=== PATIENT | male | born 1975 | race Caucasian/White ===

== ENCOUNTER 2020-05-08 13:49 | Emergency (ER) | payer MEDICAID, SELFPAY | END 2020-05-08 19:39 | disposition left against medical advice (07) | PROVIDERS: Emergency Provider Emergency Medicine; PCP Internal Medicine | DX: R10.9 Unspecified abdominal pain (principal) | CPT/HCPCS: 99281 ==

== ENCOUNTER 2020-05-09 08:50 | Emergency (ER) | payer MEDICAID, SELFPAY ==
[2020-05-09 09:28] VITALS: BP 128/80; PULSE 80; RESP 16; TEMP 36.6; O2SAT 96; BMI 35.5
[2020-05-09 11:54] VITALS: BP 136/85; PULSE 78; RESP 16; TEMP 37.2; O2SAT 136
--- NOTE | 2020-05-09 12:03 | CT_ITS ---
EXAMINATION: CT ABDOMEN AND PELVIS WITH CONTRAST CLINICAL INFORMATION: Right lower quadrant abdominal pain COMPARISON: None TECHNIQUE: Multidetector volumetric images were obtained from the superior aspect of the liver through the pubic symphysis following administration 85 mL of Omnipaque 350 intravenous contrast. Sagittal and coronal reformatted images were obtained on the technologist's workstation. Oral contrast: No This CT examination was performed using dose optimization techniques as appropriate, variously including the following: *Automated exposure control *Adjustment of mA and/or kV according to patient size (this includes techniques or standardized protocols for targeted exams where dose is matched to indication/reason for exam; i.e. extremities or head) *Use of iterative reconstruction technique DLP: 945 mGy-cm FINDINGS: LUNG BASES: The visualized lung bases are unremarkable. LIVER, GALLBLADDER, AND BILIARY TREE: The liver is normal in size, shape, and attenuation. No focal hepatic lesion or biliary ductal dilatation is present. The gallbladder is unremarkable with no evidence of radiopaque gallstones, gallbladder wall thickening, or obvious pericholecystic inflammatory changes. PANCREAS: Unremarkable. SPLEEN: Unremarkable. ADRENAL GLANDS: Unremarkable. KIDNEYS AND URETERS: The kidneys are normal in size, shape, and attenuation. No hydronephrosis, hydroureter, or calculi seen. No perinephric stranding. Exophytic right upper pole 6.2 cm. Adjacent exophytic left midpole anterior lesions measuring 2.8 x 1.7 cm and 1.1 cm. These measure simple fluid attenuation. BLADDER: Unremarkable. GASTROINTESTINAL TRACT: The stomach is unremarkable. Normal caliber small bowel. There is no obstruction. Normal appendix. There is scattered colonic diverticulosis. No diverticulitis. No colonic wall thickening or inflammatory change. No free air or free fluid. ABDOMINAL WALL: No significant hernia is appreciated. Right inguinal hernia repair. LYMPH NODES: Normal. VASCULAR: Normal caliber aorta. Retroaortic left renal vein. PELVIC VISCERA: The prostate is prominent measuring 5 cm transverse. The seminal vesicles are unremarkable. OSSEOUS STRUCTURES: No acute or suspicious osseous abnormality. Mild degenerative changes of the spine. Mild degenerative changes of the hips. IMPRESSION: No acute findings in the abdomen or pelvis. Normal appendix. No hydronephrosis or nephrolithiasis. Bilateral renal cysts. Diverticulosis without diverticulitis.
--- NOTE | 2020-05-09 12:54 | ED_ITS ---
HPI - Abdominal Pain General Chief Complaint: Abdominal Pain Stated Complaint: ABD PAIN Time Seen by Provider: 05/09/20 11:57 Source: patient Mode of arrival: ambulatory History of Present Illness HPI narrative: 45-year-old male with no significant past medical history presented to ED complaining of diarrhea and epigastric abdominal pain x3 days s/p eating a burger. Admits to 1 episode of nausea / emesis. Was sent to ED by Urgent Care, admits symptomatic improvement since star. Denies fever, chills, constipation, recent travel, sick contacts, dysuria /hematuria, flank pain MD elicited complaint: abdominal pain Related Data Allergies Allergy/AdvReac Type Severity Reaction Status Date / Time No Known Allergies Allergy Verified 05/09/20 08:52 [No Known Allergies*] Review of Systems Review of Systems Constitutional: No Weight loss, No Fever, No Chills Cardiovascular: No Chest Pain, No SOB Respiratory: No Cough, No Sputum Gastrointestinal: + Nausea, + Vomiting (resolved), + Diarrhea, No Constipation, + Abdominal pain Genitourinary: No Dysuria, No Urinary Frequency, No Hematuria, No Flank Pain, No Urinary Flow Changes Skin: No Skin Lesions, No rash Yes all other systems are reviewed and are negative Physical Exam Vital Signs: Vital Signs: Vital Signs Temp Pulse Resp BP Pulse Ox 05/09/20 14:12 76 122/86 98 05/09/20 11:54 98.9 F 78 16 136/85 136 H 05/09/20 09:28 97.8 F 80 16 128/80 96 Body Mass Index 35.5 Const: General: cooperative and healthy appearing Orientation/consciousne ss: patient oriented x3 Limitations: no limitations HENMT: Head: Yes normal to inspection Ears: hearing grossly normal bilaterally General nose exam: Normal external nose present Face and sinus: Yes normal facial exam Eyes: General: appearance normal, both eyes and all related structures EOM: EOMs intact bilaterally Neck: Neck: Yes normal visual inspection Resp: Effort & Inspection: normal respiratory effort Cardio: Rate: regular rate GI: Inspection: Yes normal to inspection Palpation (GI): Soft to palpation, Tenderness to palpation present (GI) in the RLQ, no guarding and not rigid : General: Yes no CVA tenderness Back/Spine/Pelvis: Back: no CVA tenderness Skin: Rashes: no rashes Wounds: no wounds Neuro: General: patient oriented x3 Gait exam (Neuro): Normal gait present Extrem: General: Yes normal to inspection Course Course Course Narrative: - AST/ALT elevated at baseline, labs otherwise unremarkable, UA with blood/ not infected CT AP without acute findings Lab and imaging results discussed with patient including worrisome signs and symptoms and strict return precautions. Patient verbalized understanding feel safe for discharge home to follow-up with PCP MDM - Abdominal Pain MDM Narrative Medical decision making narrative: 45-year-old male with no significant past medical history presented to ED complaining of diarrhea and epigastric abdominal pain x3 days s/p eating a burger. on exam VSS, NAD/ nontoxic-appearing, abdomen soft with RLQ tenderness. concern for appendicitis vs gastroenteritis vs colitis. Low concern for renal stone/pyelo/diverticulitis /pancreatitis Plan: Labs, UA, CT AP, symptomatic treatment /reassess Differential Diagnosis Differential diagnosis: Likely abdominal pain, acute appendicitis, bowel perforation, constipation, gastroenteritis, gastritis and pancreatitis Lab Data Result diagrams: 05/09/20 12:59 05/09/20 12:59 Labs: Lab Results 05/09/20 05/09/20 05/09/20 Range/Units 12:59 12:59 12:59 WBC 7.3 (4.8-10.8) X10*3/uL RBC 5.24 (4.60-5.80) X10*6/uL Hgb 16.8 (14.0-18.0) g/dl Hct 50.4 (42-52) % MCV 96.2 (80-98) fL MCH 32.1 (27.0-33.0) pg MCHC 33.3 (31.0-36.0) g/dl RDW 12.8 (11.0-16.0) % Plt Count 265 (160-400) X10*3/uL MPV 10.7 (9.4-12.4) fL Immature Gran % (Auto) 0.4 (0.0-0.4) % Neut % (Auto) 57.7 (45-73) % Lymph % (Auto) 32.5 (20-40) % [place] % (Auto) 6.8 (2-11) % Eos % (Auto) 1.9 (0-4) % Baso % (Auto) 0.7 (0-2) % Lymph # (Auto) 2.4 (1.2-4.9) X10*3/uL [place] # (Auto) 0.5 (0.1-1.2) X10*3/uL Eos # (Auto) 0.1 (0.0-0.4) X10*3/uL Baso # (Auto) 0.1 (0.0-0.2) X10*3/uL Abs Immat Gran (auto) 0.03 (0.00-0.03) X10*3/uL Absolute Neuts (auto) 4.2 (2.0-8.3) X10*3/uL Absolute Nucleated RBC 0.000 (0.0-0.012) X10*3/uL Nucleated RBC % (auto) 0.0 (0.0-0.2) /100WBC Hold Blue Top SEE NOTE Sodium (135-145) mmol/L Potassium (3.3-5.1) mmol/l Chloride (96-108) mmol/L Carbon Dioxide (22-29) mmol/L Anion Gap (12-20) BUN (9-16) mg/dL Creatinine (0.5-1.4) mg/dL Estim Creat Clear Calc Estimated GFR Random Glucose (60-115) mg/dL Calcium (8.4-10.2) mg/dL Magnesium (1.6-2.6) mg/dL Total Bilirubin (0.0-1.0) mg/dL Direct Bilirubin (0.0-0.5) mg/dL AST (5-37) U/L ALT (0-40) U/L Alkaline Phosphatase (39-117) U/L Total Protein (6.5-8.0) g/dL Albumin (3.5-5.0) g/dL Lipase (8-78) U/L Urine Color YELLOW Urine Appearance CLEAR Urine pH 5.5 (5.0-8.0) Ur Specific [place] >= 1.030 H (1.005-1.025) Urine Protein NEG (NEG-TRACE) MG/DL Urine Glucose (UA) NEG (NEG) MG/DL Urine Ketones NEG (NEG) MG/DL Urine Blood 3+ H (NEG) Urine Nitrite NEG (NEG) Ur Leukocyte Esterase NEG (NEG) Urine RBC 5-9 H (0) /HPF Urine WBC 0 (0-4) /HPF Ur Squamous Epith Cells TRACE /LPF Urine Bacteria NONE /LPF Urine Mucus TRACE /LPF 05/09/20 Range/Units 12:59 WBC (4.8-10.8) X10*3/uL RBC (4.60-5.80) X10*6/uL Hgb (14.0-18.0) g/dl Hct (42-52) % MCV (80-98) fL MCH (27.0-33.0) pg MCHC (31.0-36.0) g/dl RDW (11.0-16.0) % Plt Count (160-400) X10*3/uL MPV (9.4-12.4) fL Immature Gran % (Auto) (0.0-0.4) % Neut % (Auto) (45-73) % Lymph % (Auto) (20-40) % [place] % (Auto) (2-11) % Eos % (Auto) (0-4) % Baso % (Auto) (0-2) % Lymph # (Auto) (1.2-4.9) X10*3/uL [place] # (Auto) (0.1-1.2) X10*3/uL Eos # (Auto) (0.0-0.4) X10*3/uL Baso # (Auto) (0.0-0.2) X10*3/uL Abs Immat Gran (auto) (0.00-0.03) X10*3/uL Absolute Neuts (auto) (2.0-8.3) X10*3/uL Absolute Nucleated RBC (0.0-0.012) X10*3/uL Nucleated RBC % (auto) (0.0-0.2) /100WBC Hold Blue Top Sodium 140 (135-145) mmol/L Potassium 4.1 (3.3-5.1) mmol/l Chloride 103 (96-108) mmol/L Carbon Dioxide 30 H (22-29) mmol/L Anion Gap 11 L (12-20) BUN 9 (9-16) mg/dL Creatinine 0.91 (0.5-1.4) mg/dL Estim Creat Clear Calc 131.1 Estimated GFR > 60 Random Glucose 96 (60-115) mg/dL Calcium 9.5 (8.4-10.2) mg/dL Magnesium 2.3 (1.6-2.6) mg/dL Total Bilirubin 0.8 (0.0-1.0) mg/dL Direct Bilirubin 0.3 (0.0-0.5) mg/dL AST 41 H (5-37) U/L ALT 76 H (0-40) U/L Alkaline Phosphatase 60 (39-117) U/L Total Protein 7.2 (6.5-8.0) g/dL Albumin 4.5 (3.5-5.0) g/dL Lipase 11 (8-78) U/L Urine Color Urine Appearance Urine pH (5.0-8.0) Ur Specific [place] (1.005-1.025) Urine Protein (NEG-TRACE) MG/DL Urine Glucose (UA) (NEG) MG/DL Urine Ketones (NEG) MG/DL Urine Blood (NEG) Urine Nitrite (NEG) Ur Leukocyte Esterase (NEG) Urine RBC (0) /HPF Urine WBC (0-4) /HPF Ur Squamous Epith Cells /LPF Urine Bacteria /LPF Urine Mucus /LPF Discharge Plan Discharge Clinical Impression: Abdominal pain Patient Disposition: Home, Self-Care Instructions: Abdominal Pain (ED), Gastroenteritis (ED) Additional Instructions: your blood work and CT scan were unremarkable today in the ED It is important for you to follow-up with her primary care doctor Stay hydrated at home If symptoms persist or worsen, your unable to eat or drink, develops fever, persistent nausea/vomiting, or diarrhea return to the ED Referrals: Hal Nova MD [Primary Care Provider] - 2 days Stand Alone Forms: Work/School Release [facility] Past Medical History Attestation statement: The following information was validated with the patient. Medical History (Updated 05/09/20 @ 16:01 by MELE Simpson) No known health problems Social History Social History Alcohol intake: never Smoking Status: Never smoker Use of substances other than those prescribed or required for medical reasons: No Advance Directives: No Advance Directives Information Provided: No
[2020-05-09] MEDS: 0.9 % Sodium Chloride 1,000 ML 999 ML IVCONT (13:02)
[2020-05-09] MEDS: Ketorolac Tromethamine 15 MG/ML VIAL IV (13:02)
[2020-05-09] MEDS: ondansetron HCL 4 MG/2 ML VIAL IVPUSH (13:02)
[2020-05-09 13:05] LABS: MANUAL DIFF FLAG NO
[2020-05-09 13:06] LABS: Appearance Urine CLEAR; Color Urine YELLOW; Glucose Urine UA NEG (NEG); Leukocyte Esterase Urine NEG (NEG); Nitrite Urine NEG (NEG); PH 5.5 (5.0-8.0); Specific Gravity - Urine >= 1.030 (1.005-1.025); Urine Blood 3+ (NEG); Urine Ketones NEG (NEG); Urine Protein NEG (NEG-TRACE)
[2020-05-09 13:09] LABS: Basophils Absolute Auto 0.1 X10*3/uL (0.0-0.2); Basophils Percent Auto 0.7 % (0-2); Eosinophils Absolute Auto 0.1 X10*3/uL (0.0-0.4); Eosinophils Percent Auto 1.9 % (0-4); Hematocrit 50.4 % (42-52); Hemoglobin 16.8 g/dl (14.0-18.0); Imm Gran Abs Auto 0.03 X10*3/uL (0.00-0.03); Imm Gran Pct Auto 0.4 % (0.0-0.4); Lymphocytes Absolute Auto 2.4 X10*3/uL (1.2-4.9); Lymphocytes Percent Auto 32.5 % (20-40); Mean Corpuscular HGB Conc 33.3 g/dl (31.0-36.0); Mean Corpuscular Hemoglobin 32.1 pg (27.0-33.0); Mean Corpuscular Volume 96.2 fL (80-98); Mean Platelet Volume 10.7 fL (9.4-12.4); Monocytes Absolute Auto 0.5 X10*3/uL (0.1-1.2); Monocytes Percent Auto 6.8 % (2-11); Neutrophils Absolute Auto 4.2 X10*3/uL (2.0-8.3); Neutrophils Percent Auto 57.7 % (45-73); Platelet Count 265 X10*3/uL (160-400); Red Blood Count 5.24 X10*6/uL (4.60-5.80); Red Cell Distribution Width 12.8 % (11.0-16.0); White Blood Count 7.3 X10*3/uL (4.8-10.8)
[2020-05-09 13:14] LABS: Mucus Urine TRACE /LPF; Squamous Epithelial Cell Urine TRACE /LPF; WBC Urine 0 /HPF (0-4)
[2020-05-09 13:37] LABS: Alanine Aminotransferase 76 U/L (0-40); Albumin Level 4.5 g/dL (3.5-5.0); Alkaline Phosphatase 60 U/L (39-117); Anion Gap 11 (12-20); Aspartate Amino Transferase 41 U/L (5-37); Bilirubin Direct 0.3 mg/dL (0.0-0.5); Bilirubin Total 0.8 mg/dL (0.0-1.0); Blood Urea Nitrogen 9 mg/dL (9-16); Calcium 9.5 mg/dL (8.4-10.2); Carbon Dioxide 30 mmol/L (22-29); Chloride 103 mmol/L (96-108); Creatinine Clr Calc Pharmacy 131.1; Estimated Glomerular Filt Rate > 60; Glucose Random 96 mg/dL (60-115); Lipase 11 U/L (8-78); Magnesium 2.3 mg/dL (1.6-2.6); Potassium 4.1 mmol/l (3.3-5.1); Sodium 140 mmol/L (135-145); Total Protein 7.2 g/dL (6.5-8.0)
[2020-05-09 14:12] VITALS: BP 122/86; PULSE 76; O2SAT 98
--- NOTE | 2020-05-09 14:13 | PC.NURSE ---
PT RESTING COMFORTABLY IN STRETCHER. DUE FOR CT SCAN
[2020-05-09] MEDS: iohexoL 350 MG/ML 100 ML INFUS..BTL IV (14:43)
== END 2020-05-09 16:11 | disposition home or self-care (01) ==
PROVIDERS: Physician Assistant; Emergency Provider Emergency Medicine; PCP Internal Medicine
DX: K52.9 Noninfective gastroenteritis and colitis, unspecified (principal)
CPT/HCPCS: 36415; 74177; 80048; 80076; 81001; 83690; 83735; 85025; 96361; 96374; 96375; 99284; J1885; J2405

== ENCOUNTER 2020-05-14 15:25 | Outpatient (REF) | payer MEDICAID, SELFPAY | END 2020-05-14 15:26 | disposition home or self-care (01) | LOC: HO.LAB 15:25 | PROVIDERS: PCP Internal Medicine; Visit Provider Internal Medicine | DX: Z20.828 Contact with and (suspected) exposure to other viral communicable diseases (principal) | CPT/HCPCS: 87635 ==

== ENCOUNTER 2020-08-19 10:54 | Outpatient (REF) | payer MEDICAID, SELFPAY | END 2020-08-19 10:55 | disposition home or self-care (01) | LOC: HO.LAB 10:54 | PROVIDERS: PCP Internal Medicine; Visit Provider Internal Medicine | DX: Z20.822 Contact with and (suspected) exposure to COVID-19 (principal) | CPT/HCPCS: 36415; C9803; U0003 ==

== ENCOUNTER 2020-10-21 09:56 | Emergency (ER) | payer MEDICAID, SELFPAY ==
--- NOTE | ~2020-10-21 | XR_ITS ---
EXAMINATION: XR ABDOMEN KUB CLINICAL INDICATION: Constipation COMPARISON: None TECHNIQUE: AP view of the abdomen. FINDINGS: There are no dilated loops of bowel to suggest obstruction. There does not appear to be a large amount of stool in the colon to suggest constipation. There is no evidence of free air. No calcifications are seen. Bony structures are unremarkable. XR/XR KUB IMPRESSION: Unremarkable examination.
[2020-10-21 10:03] VITALS: BP 142/89; PULSE 77; RESP 18; TEMP 36.5; O2SAT 96; BMI 29.2
--- NOTE | 2020-10-21 10:39 | PC.NURSE ---
X RAY DONE RESULT PENDING
--- NOTE | 2020-10-21 11:09 | ED.ABDPAIN ---
HPI - Abdominal Pain General Chief Complaint: Abdominal Pain Stated Complaint: abd pain Time Seen by Provider: 10/21/20 10:08 Source: patient Mode of arrival: ambulatory History of Present Illness HPI narrative: 45-year-old male with no significant past medical history presenting to the ED complaining of lower abdominal fullness and constipation with watery diarrhea x5 days. Reports has not had normal BM x5 days. Also reports intermittent bloody stool in toilet bowl and when wiping. Denies fever, chills, nausea/vomiting, dysuria/hematuria, melena, hemorrhoids, rectal pain, lightheadedness/dizziness MD elicited complaint: abdominal pain Related Data Previous Rx's Medication Instructions Recorded dicyclomine 20 mg PO QID #10 tab 10/21/20 Allergies Allergy/AdvReac Type Severity Reaction Status Date / Time No Known Allergies Allergy Verified 05/09/20 08:52 [No Known Allergies*] Review of Systems Review of Systems Constitutional: No Fever, No Chills, No Fatigue, No Malaise Cardiovascular: No Chest Pain, No SOB Respiratory: No Cough, No Dyspnea Gastrointestinal: No Nausea, No Vomiting, + Diarrhea, + Constipation, +Abdominal pain, + bloody stool Genitourinary: No Dysuria, No Urinary Frequency, No Hematuria,No Flank Pain, No Urinary Flow Changes, No Hesitancy Musculoskeletal: No joint pain, No Myalgias, No Joint Swelling Skin: No Skin Lesions, No rash Neuro: No Weakness, No Numbness, No Dizziness Yes all other systems are reviewed and are negative Physical Exam Vital Signs: Vital Signs: Last Vital Signs Temp 97.7 F 10/21/20 10:03 Pulse 77 10/21/20 10:03 Resp 18 10/21/20 10:03 BP 142/89 H 10/21/20 10:03 Pulse Ox 96 10/21/20 10:03 Body Mass Index 29.2 Const: General: cooperative, healthy appearing, comfortable and no acute distress Orientation/consciousness: patient oriented x3 Limitations: no limitations HENMT: Head: Yes normal to inspection Ears: hearing grossly normal bilaterally General nose exam: Normal external nose present Face and sinus: Yes normal facial exam Eyes: General: appearance normal, both eyes and all related structures EOM: EOMs intact bilaterally Neck: Neck: Yes normal visual inspection Resp: Effort & Inspection: normal respiratory effort Cardio: Rate: regular rate GI: Inspection: Yes normal to inspection and No distended Palpation (GI): Soft to palpation, nontender, no guarding and not rigid : Other: No appreciable external hemorrhoids on rectal exam General: Yes no CVA tenderness Back/Spine/Pelvis: Back: no CVA tenderness Skin: Rashes: no rashes Wounds: no wounds Neuro: General: patient oriented x3 Gait exam (Neuro): Normal gait present Extrem: General: Yes normal to inspection Course Course Course Narrative: XR KUB IMPRESSION: Unremarkable examination >> will obtain labs and occult stool -no leukocytosis, H&H stable, labs otherwise unremarkable, improved from prior, occult stool negative -UA with RBCs > will have patient follow-up with urology Lab and imaging results discussed with patient including worrisome signs and symptoms and strict return precautions. He verbalized understanding feel safe for discharge home MDM - Abdominal Pain MDM Narrative Medical decision making narrative: 45-year-old male with no significant past medical history presenting to the ED complaining of lower abdominal fullness and constipation with watery diarrhea x5 days. On exam VSS, NAD/wall pain, abdomen soft/nontender, on rectal exam no appreciable external hemorrhoids. Concern for constipation vs SBO vs gastroenteritis/food poisoning. Unlikely diverticulitis/appendicitis / cholecystitis or pancreatitis Plan: Labs, UA, occult stool, KUB Medical Records Attestation: I reviewed the patient's medical records. Lab Data Attestation: I reviewed the patient's lab results. Result diagrams: 10/21/20 11:43 10/21/20 11:43 Labs: Lab Results 10/21/20 10/21/20 10/21/20 Range/Units 11:42 11:43 11:43 WBC 6.9 (4.8-10.8) X10*3/uL RBC 5.14 (4.60-5.80) X10*6/uL Hgb 16.2 (14.0-18.0) g/dl Hct 47.8 (42-52) % MCV 93.0 (80-98) fL MCH 31.5 (27.0-33.0) pg MCHC 33.9 (31.0-36.0) g/dl RDW 12.7 (11.0-16.0) % Plt Count 261 (160-400) X10*3/uL MPV 10.5 (9.4-12.4) fL Immature Gran % (Auto) 0.3 (0.0-0.4) % Neut % (Auto) 63.3 (45-73) % Lymph % (Auto) 27.9 (20-40) % [place] % (Auto) 6.4 (2-11) % Eos % (Auto) 1.7 (0-4) % Baso % (Auto) 0.4 (0-2) % Lymph # (Auto) 1.9 (1.2-4.9) X10*3/uL [place] # (Auto) 0.4 (0.1-1.2) X10*3/uL Eos # (Auto) 0.1 (0.0-0.4) X10*3/uL Baso # (Auto) 0.0 (0.0-0.2) X10*3/uL Abs Immat Gran (auto) 0.02 (0.00-0.03) X10*3/uL Absolute Neuts (auto) 4.3 (2.0-8.3) X10*3/uL Absolute Nucleated RBC 0.000 (0.0-0.012) X10*3/uL Nucleated RBC % (auto) 0.0 (0.0-0.2) /100WBC Hold Blue Top Sodium 138 (135-145) mmol/L Potassium 4.1 (3.3-5.1) mmol/L Chloride 104 (96-108) mmol/L Carbon Dioxide 24 (22-29) mmol/L Anion Gap 14 (12-20) BUN 15 D (9-16) mg/dL Creatinine 1.02 (0.5-1.4) mg/dL Estim Creat Clear Calc 106.5 Estimated GFR > 60 Random Glucose 121 H (60-115) mg/dL Calcium 9.0 (8.4-10.2) mg/dL Magnesium 2.4 (1.6-2.6) mg/dL Total Bilirubin 1.1 H (0.0-1.0) mg/dL Direct Bilirubin 0.5 (0.0-0.5) mg/dL AST 26 (5-37) U/L ALT 53 H (0-40) U/L Alkaline Phosphatase 70 (39-117) U/L Total Protein 6.8 (6.5-8.0) g/dL Albumin 4.1 (3.5-5.0) g/dL Lipase (8-78) U/L Urine Color Urine Appearance Urine pH (5.0-8.0) Ur Specific [place] (1.005-1.025) Urine Protein (NEG-TRACE) MG/DL Urine Glucose (UA) (NEG) MG/DL Urine Ketones (NEG) MG/DL Urine Blood (NEG) Urine Nitrite (NEG) Ur Leukocyte Esterase (NEG) Urine RBC (0) /HPF Urine WBC (0-4) /HPF Ur Squamous Epith Cells /LPF Urine Bacteria /LPF Urine Mucus /LPF Stool Occult Blood NEGATIVE (NEGATIVE) 10/21/20 10/21/20 10/21/20 Range/Units 11:43 11:43 Unknown WBC (4.8-10.8) X10*3/uL RBC (4.60-5.80) X10*6/uL Hgb (14.0-18.0) g/dl Hct (42-52) % MCV (80-98) fL MCH (27.0-33.0) pg MCHC (31.0-36.0) g/dl RDW (11.0-16.0) % Plt Count (160-400) X10*3/uL MPV (9.4-12.4) fL Immature Gran % (Auto) (0.0-0.4) % Neut % (Auto) (45-73) % Lymph % (Auto) (20-40) % [place] % (Auto) (2-11) % Eos % (Auto) (0-4) % Baso % (Auto) (0-2) % Lymph # (Auto) (1.2-4.9) X10*3/uL [place] # (Auto) (0.1-1.2) X10*3/uL Eos # (Auto) (0.0-0.4) X10*3/uL Baso # (Auto) (0.0-0.2) X10*3/uL Abs Immat Gran (auto) (0.00-0.03) X10*3/uL Absolute Neuts (auto) (2.0-8.3) X10*3/uL Absolute Nucleated RBC (0.0-0.012) X10*3/uL Nucleated RBC % (auto) (0.0-0.2) /100WBC Hold Blue Top SEE NOTE Sodium (135-145) mmol/L Potassium (3.3-5.1) mmol/L Chloride (96-108) mmol/L Carbon Dioxide (22-29) mmol/L Anion Gap (12-20) BUN (9-16) mg/dL Creatinine (0.5-1.4) mg/dL Estim Creat Clear Calc Estimated GFR Random Glucose (60-115) mg/dL Calcium (8.4-10.2) mg/dL Magnesium (1.6-2.6) mg/dL Total Bilirubin (0.0-1.0) mg/dL Direct Bilirubin (0.0-0.5) mg/dL AST (5-37) U/L ALT (0-40) U/L Alkaline Phosphatase (39-117) U/L Total Protein (6.5-8.0) g/dL Albumin (3.5-5.0) g/dL Lipase 11 (8-78) U/L Urine Color YELLOW Urine Appearance CLEAR Urine pH 6.0 (5.0-8.0) Ur Specific [place] 1.025 (1.005-1.025) Urine Protein NEG (NEG-TRACE) MG/DL Urine Glucose (UA) NEG (NEG) MG/DL Urine Ketones NEG (NEG) MG/DL Urine Blood 3+ H (NEG) Urine Nitrite NEG (NEG) Ur Leukocyte Esterase NEG (NEG) Urine RBC 10-14 H (0) /HPF Urine WBC 0 (0-4) /HPF Ur Squamous Epith Cells NONE /LPF Urine Bacteria NONE /LPF Urine Mucus 2+ /LPF Stool Occult Blood (NEGATIVE) Discharge Plan Discharge Clinical Impression: Abdominal pain Hematuria Qualifiers: Hematuria type: other microscopic Qualified Code(s): R31.29 - Other microscopic hematuria Patient Disposition: Home, Self-Care Instructions: Hematuria (ED), Abdominal Pain (ED) Additional Instructions: Your blood work was reassuring today in the ED You urine had microscopic blood in it, this should be evaluated by her primary care doctor, and potentially by urology You should follow-up with the GI doctor Charli help with abdominal discomfort, this as an antispasmodic agent If he continue to have rectal bleeding, it worsens or persists, you nausea/vomiting, continued or worsening abdominal pain return to the ED Prescriptions: New dicyclomine 20 mg tablet 20 mg PO QID Qty: 10 RF: 0 Referrals: Kailee Rebolledo MD [Physician] - 5 days Hal Nova MD [Primary Care Provider] - 2 days [facility] Past Medical History Attestation statement: The following information was validated with the patient. Medical History (Updated 10/21/20 @ 12:38 by MELE Simpson) No known health problems Social History Social History Alcohol intake: never Smoking Status: Never smoker Advance Directives: No Advance Directives Information Provided: No
[2020-10-21 11:54] LABS: MANUAL DIFF FLAG NO
[2020-10-21 11:57] LABS: OBS Int Ctl Valid YES; OBS1 NEGATIVE (NEGATIVE)
[2020-10-21 11:57] LABS: Basophils Percent Auto 0.4 % (0-2); Eosinophils Absolute Auto 0.1 X10*3/uL (0.0-0.4); Eosinophils Percent Auto 1.7 % (0-4); Hematocrit 47.8 % (42-52); Hemoglobin 16.2 g/dl (14.0-18.0); Imm Gran Abs Auto 0.02 X10*3/uL (0.00-0.03); Imm Gran Pct Auto 0.3 % (0.0-0.4); Lymphocytes Absolute Auto 1.9 X10*3/uL (1.2-4.9); Lymphocytes Percent Auto 27.9 % (20-40); Mean Corpuscular HGB Conc 33.9 g/dl (31.0-36.0); Mean Corpuscular Hemoglobin 31.5 pg (27.0-33.0); Mean Platelet Volume 10.5 fL (9.4-12.4); Monocytes Absolute Auto 0.4 X10*3/uL (0.1-1.2); Monocytes Percent Auto 6.4 % (2-11); Neutrophils Absolute Auto 4.3 X10*3/uL (2.0-8.3); Neutrophils Percent Auto 63.3 % (45-73); Platelet Count 261 X10*3/uL (160-400); Red Blood Count 5.14 X10*6/uL (4.60-5.80); Red Cell Distribution Width 12.7 % (11.0-16.0); White Blood Count 6.9 X10*3/uL (4.8-10.8)
[2020-10-21 12:06] LABS: Glucose Urine UA NEG (NEG); Leukocyte Esterase Urine NEG (NEG); Nitrite Urine NEG (NEG); Specific Gravity - Urine 1.025 (1.005-1.025); Urine Blood 3+ (NEG); Urine Ketones NEG (NEG); Urine Protein NEG (NEG-TRACE)
[2020-10-21 12:09] LABS: Appearance Urine CLEAR; Color Urine YELLOW
[2020-10-21 12:17] LABS: Mucus Urine 2+ /LPF; WBC Urine 0 /HPF (0-4)
[2020-10-21 12:26] LABS: Lipase 11 U/L (8-78)
[2020-10-21 12:28] LABS: Alanine Aminotransferase 53 U/L (0-40); Albumin Level 4.1 g/dL (3.5-5.0); Alkaline Phosphatase 70 U/L (39-117); Anion Gap 14 (12-20); Aspartate Amino Transferase 26 U/L (5-37); Bilirubin Direct 0.5 mg/dL (0.0-0.5); Bilirubin Total 1.1 mg/dL (0.0-1.0); Blood Urea Nitrogen 15 mg/dL (9-16); Carbon Dioxide 24 mmol/L (22-29); Chloride 104 mmol/L (96-108); Creatinine Clr Calc Pharmacy 106.5; Estimated Glomerular Filt Rate > 60; Glucose Random 121 mg/dL (60-115); Magnesium 2.4 mg/dL (1.6-2.6); Potassium 4.1 mmol/L (3.3-5.1); Sodium 138 mmol/L (135-145); Total Protein 6.8 g/dL (6.5-8.0)
== END 2020-10-21 12:15 | disposition home or self-care (01) ==
PROVIDERS: Physician Assistant; Emergency Provider Emergency Medicine; PCP Internal Medicine
DX: R31.29 Other microscopic hematuria (principal); R10.30 Lower abdominal pain, unspecified
CPT/HCPCS: 36415; 74018; 80048; 80076; 81001; 81003; 82272; 83690; 83735; 85025; 99283

== ENCOUNTER 2020-12-12 09:20 | Outpatient (REF) | payer MEDICAID, SELFPAY ==
[2020-12-12 09:39] LABS: COVID-19 Test Negative (Negative)
== END 2020-12-12 09:21 | disposition home or self-care (01) ==
LOC: HO.LAB 09:20
PROVIDERS: Visit Provider Internal Medicine
DX: Z20.822 Contact with and (suspected) exposure to COVID-19 (principal)
CPT/HCPCS: 36415; 87635; C9803

== ENCOUNTER 2021-05-16 05:57 | Emergency (ER) | payer MEDICAID, SELFPAY ==
--- NOTE | ~2021-05-16 | XR_ITS ---
EXAMINATION: XR ABDOMEN WITH DECUBITUS VIEWS CLINICAL INDICATION: Flat and upright looking for obstruction . COMPARISON: None TECHNIQUE: 2 views. FINDINGS: There is moderate stool seen throughout the colon without any significant distention. The small bowel loops are normal caliber. There is no organomegaly. There are postsurgical changes likely from hernia repair in the right lower pelvis. XR/XR abdomen w decubitus IMPRESSION: Mild constipation. Postsurgical changes right lower pelvis likely from hernia repair
[2021-05-16 06:00] VITALS: BP 111/82; PULSE 86; RESP 16; TEMP 36.8; O2SAT 96; BMI 36.9
--- NOTE | 2021-05-16 06:46 | ED_ITS ---
HPI - Abdominal Pain General Chief Complaint: Abdominal Pain Stated Complaint: Abd pain Time Seen by Provider: 05/16/21 06:46 Source: patient Mode of arrival: ambulatory Limitations: no limitations History of Present Illness HPI narrative: patient was pushing a cart at work, saw his umbilical area that was swollen and popped out. He has a prior history of bilateral inguinal pain. MD elicited complaint: abdominal pain Pertinent past history: other (hernia repair) Onset (ago): day(s) Pain Consistency: constant Location: periumbilical Severity: mild Quality: cramping Radiation: none Migration to: no migration Exacerbating factors: movement Associated symptoms: denies other symptoms Related Data Previous Rx's Medication Instructions Recorded dicyclomine 20 mg tablet 20 mg PO QID #10 tab 10/21/20 naproxen 500 mg tablet (Naprosyn) 500 mg PO BID #20 tab 05/16/21 Allergies Allergy/AdvReac Type Severity Reaction Status Date / Time No Known Allergies Allergy Verified 05/09/20 08:52 [No Known Allergies*] Review of Systems Constitutional: Reports no additional constitutional complaints Eyes: Reports no additional eye complaints Denies dizziness Cardiovascular: Reports no additional cardiovascular complaints Respiratory: Reports as per HPI Gastrointestinal: Reports no additional gastrointestinal complaints Musculoskeletal: Reports no additional musculoskeletal complaints Skin/Breast: Denies rash Reports system reviewed and no additional complaints, except as documented, Denies dizziness and Denies Sensory deficit (Neuro) Psychiatric: Denies anxiety Physical Exam Vital Signs: Vital Signs: Last Vital Signs Temp 98.2 F 05/16/21 06:00 Pulse 73 05/16/21 07:06 Resp 18 05/16/21 07:06 BP 131/75 05/16/21 07:06 Pulse Ox 98 05/16/21 07:06 Body Mass Index 36.9 Const: General: healthy appearing Nutritional Appearance: average body habitus Orientation/consciousness: oriented to person and patient oriented x3 Limitations: no limitations HENMT: Head: Yes normal to inspection Ears: external ears normal General nose exam: Normal external nose present Mouth: Normal oral and palatal mucosa present and oropharynx normal Throat: Yes posterior oropharynx normal Eyes: General: appearance normal, both eyes and all related structures Neck: Other: supple Neck: Yes normal visual inspection Chest: Chest palpation & inspection: normal inspection of the chest Resp: Auscultation: clear to auscultation bilaterally Cardio: Jugular venous distension: no JVD Rate: regular rate Rhythm: regular rhythm Heart sounds: S1 normal heart sound present and S2 normal heart sound present GI: Other: patient with periumbilical pain with palpation, no erythema, no induration, nothing to reduce Inspection: Yes normal to inspection Palpation (GI): Soft to palpation Auscultation: normal bowel sounds : General: Yes no CVA tenderness Back/Spine/Pelvis: Back: no CVA tenderness Skin: General skin exam: no rashes or lesions noted Neuro: General: oriented to person and patient oriented x3 Cranial nerves: Yes CN's II-XII intact bilaterally Motor exam (neuro): 5/5 motor strength present throughout Sensory Exam: No Sensory deficit (Neuro) Extrem: General: Yes normal to inspection Psych: Appearance: grossly normal MDM - Abdominal Pain Lab Data Result diagrams: 05/16/21 07:11 Labs: Lab Results 05/16/21 Range/Units 07:11 WBC 6.6 (4.8-10.8) X10*3/uL RBC 4.64 (4.60-5.80) X10*6/uL Hgb 15.3 (14.0-18.0) g/dl Hct 42.8 (42-52) % MCV 92.2 (80-98) fL MCH 33.0 (27.0-33.0) pg MCHC 35.7 (31.0-36.0) g/dl RDW 12.6 (11.0-16.0) % Plt Count 201 (160-400) X10*3/uL MPV 11.0 (9.4-12.4) fL Immature Gran % (Auto) 0.3 (0.0-0.4) % Neut % (Auto) 60.2 (45-73) % Lymph % (Auto) 27.5 (20-40) % [place] % (Auto) 7.3 (2-11) % Eos % (Auto) 4.4 H (0-4) % Baso % (Auto) 0.3 (0-2) % Lymph # (Auto) 1.8 (1.2-4.9) X10*3/uL [place] # (Auto) 0.5 (0.1-1.2) X10*3/uL Eos # (Auto) 0.3 (0.0-0.4) X10*3/uL Baso # (Auto) 0.0 (0.0-0.2) X10*3/uL Abs Immat Gran (auto) 0.02 (0.00-0.03) X10*3/uL Absolute Neuts (auto) 4.0 (2.0-8.3) X10*3/uL Absolute Nucleated RBC 0.000 (0.0-0.012) X10*3/uL Nucleated RBC % (auto) 0.0 (0.0-0.2) /100WBC Discharge Plan Discharge Clinical Impression: Umbilical hernia Qualifiers: Obstruction and gangrene presence: without obstruction or gangrene Qualified Code(s): K42.9 - Umbilical hernia without obstruction or gangrene Patient Disposition: Home, Self-Care Instructions: Umbilical Hernia (ED) Additional Instructions: Follow up with your PCP and surgery Prescriptions: New naproxen [Naprosyn] 500 mg tablet 500 mg PO BID Qty: 20 RF: 0 No Action dicyclomine 20 mg tablet 20 mg PO QID Qty: 10 RF: 0 Referrals: Zahida Guillaume MD [Physician] - 1 week Stand Alone Forms: Work/School Release Interventions: ED Discharge Assessment Last Done: 05/16/21 08:03 Discharge Date/Time: 05/16/21 08:04 [facility] Past Medical History Medical History No known health problems Surgical History History of bilateral inguinal hernia repair Social History Social History Alcohol intake: never Substance Use Type: Marijuana
[2021-05-16 07:06] VITALS: BP 131/75; PULSE 73; RESP 18; O2SAT 98
[2021-05-16 07:14] LABS: MANUAL DIFF FLAG NO
[2021-05-16 07:16] LABS: Basophils Percent Auto 0.3 % (0-2); Eosinophils Absolute Auto 0.3 X10*3/uL (0.0-0.4); Eosinophils Percent Auto 4.4 % (0-4); Hematocrit 42.8 % (42-52); Hemoglobin 15.3 g/dl (14.0-18.0); Imm Gran Abs Auto 0.02 X10*3/uL (0.00-0.03); Imm Gran Pct Auto 0.3 % (0.0-0.4); Lymphocytes Absolute Auto 1.8 X10*3/uL (1.2-4.9); Lymphocytes Percent Auto 27.5 % (20-40); Mean Corpuscular HGB Conc 35.7 g/dl (31.0-36.0); Mean Corpuscular Volume 92.2 fL (80-98); Monocytes Absolute Auto 0.5 X10*3/uL (0.1-1.2); Monocytes Percent Auto 7.3 % (2-11); Neutrophils Percent Auto 60.2 % (45-73); Platelet Count 201 X10*3/uL (160-400); Red Blood Count 4.64 X10*6/uL (4.60-5.80); Red Cell Distribution Width 12.6 % (11.0-16.0); White Blood Count 6.6 X10*3/uL (4.8-10.8)
[2021-05-16] MEDS: Ibuprofen 800 MG TABLET PO (08:01)
== END 2021-05-16 08:04 | disposition home or self-care (01) ==
PROVIDERS: Emergency Provider Emergency Medicine
DX: K42.9 Umbilical hernia without obstruction or gangrene (principal); Z79.899 Other long term (current) drug therapy
CPT/HCPCS: 36415; 74021; 85025; 99283; 99284

== ENCOUNTER → 2021-05-23 09:10 | Outpatient (BNVA) | payer MEDICAID, SELFPAY | PROVIDERS: Visit Provider Surgery | DX: K42.9 Umbilical hernia without obstruction or gangrene (principal) | CPT/HCPCS: 99202 ==

== ENCOUNTER 2021-06-03 09:01 | Outpatient (REF) | payer MEDICAID, SELFPAY | END 2021-06-03 09:02 | disposition home or self-care (01) | LOC: HO.LAB 09:01 | PROVIDERS: Visit Provider Internal Medicine | DX: Z20.822 Contact with and (suspected) exposure to COVID-19 (principal) | CPT/HCPCS: C9803; U0003; U0005 ==

== ENCOUNTER 2022-02-23 08:46 | Emergency (ER) | payer MEDICAID, SELFPAY ==
--- NOTE | ~2022-02-23 | XR_ITS ---
EXAMINATION: LUMBAR SPINE AND SACRUM X-RAY CLINICAL INFORMATION: Pain post fall COMPARISON: None TECHNIQUE: 3 views of the lumbar spine and 3 views of the sacrum FINDINGS: Lumbar spine: Bone alignment is normal. No fracture or dislocation is seen. Disc spaces are normal. Sacrum: Bone alignment is normal. No acute fracture or dislocation. Likely postsurgical changes from right inguinal hernia repair. XR/XR sacrum coccyx min 2V IMPRESSION: No acute fracture or dislocation.
--- NOTE | ~2022-02-23 | XR_ITS ---
EXAMINATION: LUMBAR SPINE AND SACRUM X-RAY CLINICAL INFORMATION: Pain post fall COMPARISON: None TECHNIQUE: 3 views of the lumbar spine and 3 views of the sacrum FINDINGS: Lumbar spine: Bone alignment is normal. No fracture or dislocation is seen. Disc spaces are normal. Sacrum: Bone alignment is normal. No acute fracture or dislocation. Likely postsurgical changes from right inguinal hernia repair. XR/XR lumbar spine 2-3V IMPRESSION: No acute fracture or dislocation.
[2022-02-23 09:00] VITALS: BP 133/81; PULSE 80; RESP 18; TEMP 36.1; O2SAT 97; BMI 36.2
--- NOTE | 2022-02-23 09:46 | ED.BACK ---
HPI - Back Pain/Injury General Chief Complaint: Back Pain/Injury Stated Complaint: lower back pain Time Seen by Provider: 02/23/22 09:08 Source: patient Mode of arrival: ambulatory Limitations: no limitations History of Present Illness HPI Narrative: 47 yo male presents to the ER for evaluation of 1 week of low back pain after he slipped and fell in the bathtub. He states he Slipped on some soap on the floor of the bathtub, fell directly onto his buttocks. He did not hit his head or lose consciousness. He reports he was seen at urgent care facility and prescribed Robaxin and naproxen, which he has been taking with minimal relief. He reports pain in his lower back in the middle and on both sides. He reports the pain is worse when bending trying to tie his shoes, lift anything or twists to the sides. He has not been able to work. He denies any LE weakness, numbness or tingling. No bowel or bladder incontinence. MD elicited complaint: back pain, back injury and fall Pertinent past history: recent trauma Onset (ago): week(s) (1) Timing: constant Severity: severe Similar Symptoms Previously: No Quality: stabbing and aching Location: lumbar spine, right lower back and left lower back Radiation: buttocks Exacerbating factors: movement, sitting upright, walking, coughing/sneezing and lifting Relieving factors: immobilization and supine Context: fall Associated symptoms: difficulty walking Treatments prior to arrival: NSAIDS and other medications Work related injury: No Related Data Previous Rx's Medication Instructions Recorded cyclobenzaprine 10 mg tablet 10 mg PO TID PRN muscle spasm #10 02/23/22 tabs lidocaine 5 % topical patch 1 patch topical DAILY #15 ea 02/23/22 oxycodone 5 mg tablet 5 mg PO Q8H PRN severe pain (scale 02/23/22 score 7-10) #6 tabs Allergies Allergy/AdvReac Type Severity Reaction Status Date / Time No Known Allergies Allergy Verified 09/01/21 13:54 [No Known Allergies*] Review of Systems Review of Systems: Constitutional: No Fever, No Chills Cardiovascular: No Chest Pain, No SOB Respiratory: No Cough, No Sputum Gastrointestinal: No Nausea, No Vomiting, No Diarrhea, No abdominal Pain Genitourinary: No Dysuria, No Urinary Frequency, No Hematuria, No urinary incontinence Musculoskeletal: +joint pain, + Myalgias Skin: No Skin Lesions, No rash Neuro: No Weakness, No Numbness, No Dizziness, No Headache Psych: No Anxiety/Panic, No Depression Heme/Lymph: No Bruising, No Lymphadenopathy PMFSH Past Medical History Medical History (Updated 02/23/22 @ 11:03 by MELE Bingham) COVID-19 No known health problems Surgical History History of bilateral inguinal hernia repair Social History Social History Are you a primary assistant child care teacher to a significant other at home: No Do you presently have visiting nurse or other home services: No Alcohol intake: never Patient Tobacco Use Status: Never used Tobacco Substance Use Type: Marijuana Advance Directives: No Advance Directives Information Provided: No Physical Exam Vital Signs: Vital Signs: Last Vital Signs Temp 96.9 F 02/23/22 09:00 Pulse 80 02/23/22 09:00 Resp 18 02/23/22 09:00 BP 133/81 02/23/22 09:00 Pulse Ox 97 02/23/22 09:00 O2 Del Method 02/23/22 09:00 BMI result Body Mass Index 36.2 Appearance: Alert. Oriented X3. No acute distress. HEENT: normal inspection CVS: Normal heart rate and rhythm. Pulses normal. Respiratory: No respiratory distress. Skin: Skin warm and dry. Normal skin color. Normal skin turgor. No rashes. Back: normal inspection, tenderness along the paraspinous muscles of the lumbar spine with palpable spasm, slight midline tenderness of the lower lumbar spine. limited spinal flexion due to pain. pain with rotation to the left and right. negative straight leg raise test. Extremities: atraumatic, normal ROM x4 Neuro: Oriented X 3. No motor deficit. No sensory deficit. Slow but steady gait Course Course Course Narrative: 47-year-old male presents the ER with ongoing low back pain and tailbone pain status post fall in the shower 1 week ago. He was seen at urgent care clinic but not have any imaging done. Will get x-ray to rule out compression fracture. Suspect muscle strain and spasm given exam findings. Reevaluation(s) Reevaluation #1: X-rays are normal, no acute traumatic findings. Will treat patient for low back strain and spasm. Work note provided per request. Stable for discharge home. Discharge Plan Discharge Clinical Impression: Strain of lumbar region Patient Disposition: Home, Self-Care Instructions: Low Back Strain (ED), Lower Back Exercises (ED) Additional Instructions: Your x-rays today were normal. No bending, lifting or twisting. Use ice several times per day for 20 minutes at a time for the next 48 hours and then change to heat. Take medications as prescribed to help with pain and discomfort. STOP taking the methocarbmol while you are taking the newly prescribed cyclobenzaprine. Follow up with your Primary Care Doctor this week. If your pain worsens, if you develop new numbness, tingling, weakness, loss of function or incontinence call 911 or come back to the ER right away for evaluation. Prescriptions: New cyclobenzaprine 10 mg tablet 10 mg PO TID PRN (Reason: muscle spasm) Qty: 10 0RF lidocaine 5 % adhesive patch,medicated 1 patch topical DAILY Qty: 15 0RF Rx Instructions: leave on most painful area for up to 12 hrs oxycodone 5 mg tablet 5 mg PO Q8H PRN (Reason: severe pain (scale score 7-10)) Qty: 6 0RF Rx Instructions: Partial Fill upon patient request. Stand Alone Forms: Work/School Release
[2022-02-23 11:43] VITALS: BP 126/84; PULSE 77; RESP 16; O2SAT 97
== END 2022-02-23 11:48 | disposition home or self-care (01) ==
PROVIDERS: Emergency Provider Emergency Medicine
DX: M54.50 Low back pain, unspecified (principal); M53.3 Sacrococcygeal disorders, not elsewhere classified; Z79.899 Other long term (current) drug therapy
CPT/HCPCS: 72100; 72220; 99283

== ENCOUNTER 2022-08-04 08:59 | Emergency (ER) | payer MEDICAID, SELFPAY ==
--- NOTE | ~2022-08-04 | US_ITS ---
EXAMINATION: US VENOUS ULTRASOUND WITH DOPPLER LOWER EXTREMITY, LEFT CLINICAL INFORMATION: Left calf pain, swelling, and tenderness. COMPARISON: None TECHNIQUE: Ultrasound of the deep veins is performed from the hip to the calf with compression sonography and color and pulse Doppler assessment. Spectral analysis with color-flow imaging is performed. FINDINGS: There is normal venous compression and respiratory variation and augmented flow. The visualized common femoral vein, superficial femoral vein, profunda femoral vein, popliteal vein, and the trifurcation region shows no evidence of deep venous thrombosis. There is no significant popliteal fossa cyst. US/US venous duplex LE LT IMPRESSION: No DVT demonstrated in the left lower extremity.
[2022-08-04 09:01] VITALS: BP 130/86; PULSE 99; RESP 19; TEMP 36.6; O2SAT 99; BMI 36.2
--- NOTE | 2022-08-04 09:21 | ED_ITS ---
HPI - Extremity Injury (Lower) General Chief Complaint: Extremity Injury, Lower Stated Complaint: L leg tingling Time Seen by Provider: 08/04/22 09:09 Source: patient Mode of arrival: ambulatory Limitations: no limitations History of Present Illness HPI Narrative: Patient is a 39-year-old male presents emergency department for evaluation of pain to the left lower leg with intermittent tingling/numbness sensation. He states that this has been ongoing for about 3-4 days. First noticed this following a ?long car drive? he states he believes it was 2-3 hours. Was sitting with his foot inverted at the ankle, thought that he may have strained something. He rested for a couple of days. But the pain persists. He states it feels like there is ?a tight band? around his leg just superior to the ankle, reports this area and his calf to feel tight and swollen. Denies chest pain, shortness of breath, difficulty breathing, cold sensation to the foot. Denies personal history of DVT/PE/malignancy, tobacco usage, recent surgery. Related Data Previous Rx's Medication Instructions Recorded cyclobenzaprine 10 mg tablet 10 mg PO TID PRN muscle spasm #10 02/23/22 tabs lidocaine 5 % topical patch 1 patch topical DAILY #15 ea 02/23/22 oxycodone 5 mg tablet 5 mg PO Q8H PRN severe pain (scale 02/23/22 score 7-10) #6 tabs Allergies Allergy/AdvReac Type Severity Reaction Status Date / Time No Known Allergies Allergy Verified 09/01/21 13:54 [No Known Allergies*] Review of Systems Review of Systems: Musculoskeletal: Leg pain as noted in HPI Yes all other systems are reviewed and are negative PMFSH Past Medical History Attestation statement: The following information was validated with the patient. Source: old records reviewed Medical History COVID-19 No known health problems Surgical History History of bilateral inguinal hernia repair Social History Social History Are you a primary out of school hours care worker to a significant other at home: No Do you presently have visiting nurse or other home services: No Alcohol intake: never Patient Tobacco Use Status: Never used Tobacco Substance Use Type: Marijuana Advance Directives: No Advance Directives Information Provided: No Physical Exam Vital Signs: Vital Signs: Last Vital Signs Temp 98 F 08/04/22 09:01 Pulse 99 08/04/22 09:01 Resp 19 08/04/22 09:01 BP 130/86 08/04/22 09:01 Pulse Ox 99 08/04/22 09:01 O2 Del Method 08/04/22 09:01 BMI result Body Mass Index 36.2 Appearance: Alert.?Oriented to person, place and time. No acute distress.?Normal affect. Eyes: Pupils equal, round and reactive to light.? Neck: Normal inspection.? Neck supple.?? CVS: Heart sounds normal. Normal heart rate and rhythm.? Pulses normal.?? Respiratory: No respiratory distress.? Lung sounds clear to auscultation bilaterally?? Abdomen: Soft and non-tender. Skin: Skin warm and dry.? Normal skin color.? Extremities: No lower extremity edema.? Left calf tenderness to palpation. 2+ DP/PT pulse bilaterally. No wounds, lesions, rashes. Neuro: Moves all extremities spontaneously. Sensation intact bilaterally.No focal neuro deficits. Ambulates with normal steady gait. Course Reevaluation(s) Reevaluation #1: Venous duplex negative for DVT. At this time most consistent with musculoskeletal pain. Advised rest, ice, elevation, acetaminophen/ibuprofen. Outpatient follow-up with primary care provider as needed for persistent symptoms. All questions answered. Patient stable for discharge. Time: 10:53 Medical Decision Making Medical Decision Making MDM Narrative: Patient is a 47-year-old male with no reported past medical history presenting to emergency department for evaluation of left lower leg pain and paresthesias. Overall he is well-appearing. Vital signs are overall normal, although pulse is high normal at 99. No hypoxia or tachypnea. Physical exam pertinent for tenderness upon palpation of the left lateral leg, Wells Score 1, therefore will obtain venous duplex ultrasound to exclude DVT. Alternatively pain may be musculoskeletal in nature, possibly a strain related to prolonged inversion positioning of the ankle. Patient took acetaminophen 1g prior to arrival with some improvement in pain currently 4/10. Declines any additional medication at this time. Differential Diagnosis Differential Diagnoses: The differential diagnosis associated with the presentation includes (as noted above) Radiology Impression Discussion of test interpretation with radiology: I have reviewed the radiologist's reading. Radiologist Impression: US/US venous duplex LE LT IMPRESSION: ? No DVT demonstrated in the left lower extremity. Tests considered The following testing was considered but not selected: X-ray imaging was considered, however atraumatic, significantly low suspicion for fracture or dislocation, at this time XR imaging deferred. Prescription Management I considered prescription management with: Pain Medication Discharge Plan Discharge Clinical Impression: Acute leg pain Qualifiers: Laterality: left Qualified Code(s): M79.605 - Pain in left leg Patient Disposition: Home, Self-Care Instructions: Leg Pain (ED) Additional Instructions: As discussed your ultrasound was normal today, there is no evidence of a blood clot. Your pain is most likely due to a strain of the muscles in this area. Please be sure to rest, apply ice/heat to the area for 10-15 minutes 3-4 times daily as needed. You can take ibuprofen 200 mg, 3 tablets (600mg) every 6-8 hours as needed for pain, in addition to Tylenol 500 mg, 2 tablets (1,000mg) every 4-6 hours as needed for pain, but not to exceed 3 doses daily (3,000mg).? Follow-up with her primary care provider for persistent symptoms You may return back to emergency department any new or worsening symptoms or concerns. Prescriptions: No Action cyclobenzaprine 10 mg tablet 10 mg PO TID PRN (Reason: muscle spasm) Qty: 10 0RF lidocaine 5 % adhesive patch,medicated 1 patch topical DAILY Qty: 15 0RF Rx Instructions: leave on most painful area for up to 12 hrs oxycodone 5 mg tablet 5 mg PO Q8H PRN (Reason: severe pain (scale score 7-10)) Qty: 6 0RF Rx Instructions: Partial Fill upon patient request. Interventions: ED Discharge Assessment Last Done: 08/04/22 11:08 Discharge Date/Time: 08/04/22 11:09
--- NOTE | 2022-08-04 09:29 | PC.NURSE ---
ultrasound to come to the test at bedside
--- NOTE | 2022-08-04 09:44 | PC.NURSE ---
ultrasound currently at bedside
== END 2022-08-04 11:09 | disposition home or self-care (01) ==
PROVIDERS: Emergency Provider Student in an Organized Health Care Education/Training Program
DX: M79.662 Pain in left lower leg (principal); R20.2 Paresthesia of skin
CPT/HCPCS: 93971; 99282; 99284

== ENCOUNTER → 2022-10-07 11:11 | Outpatient (BNVA) | payer MEDICAID, SELFPAY | PROVIDERS: Visit Provider Surgery | DX: K42.9 Umbilical hernia without obstruction or gangrene (principal) | CPT/HCPCS: 99202 ==

== ENCOUNTER 2022-10-20 08:37 | Day surgery (SDC) | payer MEDICAID, SELFPAY ==
[2022-10-14 15:27] VITALS: BMI 37.9
--- NOTE | 2022-10-19 10:08 | P.CONAN_ITS ---
Documented by User: Sherry Archer NP 10/19/22 10:09 HPI - Anesthesia Eval Consult details Narrative: 47yo M for Hernia Repair Umbilical with possible mesh PMFSH Active Problems Active Problems: All Active Problems (Updated 10/14/22 @ 15:26 by Lucía Aponte, TAMRA) Umbilical hernia (Acute) Obesity (Acute) Past Medical History Medical History (Updated 10/20/22 @ 09:43 by Giselle Jackson RN) COVID-19 Hx of gout No known health problems Obesity Surgical History Surgical History History of bilateral inguinal hernia repair Social History Social History Are you a primary interior plant caretaker to a significant other at home: No Do you presently have visiting nurse or other home services: No Alcohol intake: never Patient Tobacco Use Status: Never used Tobacco Use of substances other than those prescribed or required for medical reasons: Yes Substance Use Type: Marijuana Have you been hit, kicked, punched, or otherwise hurt by someone within the past year? If so, by whom?: No Are you DNR?: No Advance Directives: No Advance Directives Information Provided: Yes Advance Directives on File: No Recently lost weight without trying: No Eating poorly because of decreased appetite: No Nutrition Risks: No Nutritional Risk Meds Allergies Allergy/AdvReac Type Severity Reaction Status Date / Time No Known Allergies Allergy Verified 10/07/22 11:24 [No Known Allergies*] Home Medications Medication Instructions Recorded Confirmed Last Taken Type multivitamin with iron-mineral 1 tab PO DAILY 10/20/22 10/20/22 10/19/22 History prednisone 20 mg tablet 20 mg PO DAILY 10/20/22 10/20/22 10/19/22 History Exam Exam Date and Time: October 19, 2022 1008 Height,Weight and Vital Signs: Height 5 ft 11 in Weight 123.377 kg Assessment and Plan Assessment Anesthesia Assessment: Chart Reviewed Documented by User: Adam Cortes MD 10/20/22 11:49 PMFSH Past Medical History Medical History (Updated 10/20/22 @ 09:43 by Giselle Jackson, RN) COVID-19 Hx of gout No known health problems Obesity Surgical History Surgical History History of bilateral inguinal hernia repair Social History Social History Are you a primary interior plant caretaker to a significant other at home: No Do you presently have visiting nurse or other home services: No Alcohol intake: never Patient Tobacco Use Status: Never used Tobacco Use of substances other than those prescribed or required for medical reasons: Yes Substance Use Type: Marijuana Have you been hit, kicked, punched, or otherwise hurt by someone within the past year? If so, by whom?: No Are you DNR?: No Advance Directives: No Advance Directives Information Provided: Yes Advance Directives on File: No Recently lost weight without trying: No Eating poorly because of decreased appetite: No Nutrition Risks: No Nutritional Risk Meds Allergies Allergy/AdvReac Type Severity Reaction Status Date / Time No Known Allergies Allergy Verified 10/07/22 11:24 [No Known Allergies*] Home Medications Medication Instructions Recorded Confirmed Last Taken Type multivitamin with iron-mineral 1 tab PO DAILY 10/20/22 10/20/22 10/19/22 History prednisone 20 mg tablet 20 mg PO DAILY 10/20/22 10/20/22 10/19/22 History Exam Airway Mallampati Class: III TM Dist: >3cm Neck ROM: Limited Heart: rrr Lungs: cta Assessment and Plan Final Anesthetic Review ASA Class: III Final Preanesthetic Review: No Changes in Pt Med Stat, Meds/Allgs Chart Reviewed, Consent Obtained/Reviewed and Anes Risks/Benef Reviewed Patient Risk: Intermediate Procedure Risk: Intermediate Anesthetic Plan Anesthetic Plan: GA and Regional Block Disposition: Standard PACU
[2022-10-20] VITALS (9 sets, daily range): BP systolic 115–144; BP diastolic 72–91; PULSE 78–87; RESP 16–20; TEMP 36.7–36.9; O2SAT 95–98
[2022-10-20] MEDS: Lactated Ringers 1,000 ML 100 ML IVCONT (09:52)
--- NOTE | 2022-10-20 11:58 | W.PM.OPN ---
Operative Note Operative Note Date of Service: 10/20/22 Narrative: Preop diagnosis: Umbilical hernia Postop diagnosis: Umbilical hernia with chronically incarcerated omentum Procedure: Repair of chronically incarcerated umbilical hernia with Ventralex mesh, partial omentectomy Surgeon: Saud Colindres MD bankruptcy legal assistant: MELE Torrez The patient patient is a 47-year-old male, morbidly obese, with umbilical hernia. This was not completely reducible. He complains of chronic pain discomfort. He wants to proceed with repair. He understood the technique of repair with mesh. He was aware of the risks, benefits, and alternatives He was brought to the operating room. He was placed supine under general anesthesia via endotracheal tube. the abdomen was prepped and draped in the usual sterile fashion. A surgical time-out was done. The patient received cefazolin 2 g IV preoperatively I have irritated the planned line of incision with lidocaine 1%. I made an infraumbilical curvilinear transverse incision using blade 15. This was carried down through the full-thickness of the skin and subcutaneous fat with electrocautery. I proceeded to lift up the umbilicus was a flap off of the rest of the subcutaneous layer and the hernia contents. By doing so was able to separate the hernia contents from the like us. I had to do sharp dissection with electrocautery as well as with Metzenbaum scissors to separate the rest of the hernia contents from the at the thick subcutaneous layer. It is noted that the patient at the very thick subcutaneous fat. Eventually were able to visualize fascial defect. However, there was a large amounts of omentum that could not be reduced with this fascial defect. With therefore to do partial on bed checked to be with careful see area lesion and division of part of the omentum. Ligation of the divided omentum was done with Dexon 2-0 ties. We had good was stasis. This omentum was sent for specimen. By removing part of the omentum, we were able to reduce the hernia contents completely. The hernia defect was completely defined. This was about a 1.5 cm defect. I therefore chose a small-sized Ventralex mesh. The position under the fascial defect and flattened. I secured the Prolenes side of the mesh to the fascial edge with Prolene 2 sutures. I trimmed the Prolene straps flush on the fascial level. I closed the fascia with a figure-eight Maxon stitch. The umbilicus was tacked to the fascia Dexon 3-0 sutures to recreate the dimple. The rest of the subcutaneous layer was reapposed with Dexon 3-0 interrupted sutures. Skin closure was achieved with Dexon 4-0 subcuticular running stitch. The incision was infiltrated with Marcaine 0.5% for postop analgesia. Dressings were applied. The procedure was completed The patient tolerated procedure well. There were no immediate complications. Initial and final counts of sponges and instruments were correct. Estimated blood loss was about 5 cc. The patient was extubated without difficulty and transferred to the recovery room with stable vital signs.
[2022-10-20] MEDS: oxyCODONE HCl Immed Release 5 MG TABLET PO (12:38)
[2022-10-20] MEDS: fentaNYL citrate/PF 100 MCG/2 ML VIAL 50 MCG IVPUSH (12:59)
== END 2022-10-20 14:15 | disposition home or self-care (01) ==
PROVIDERS: Visit Provider Surgery
PROC: (CPT 49592; principal; 2022-10-20 10:30)
DX: K42.0 Umbilical hernia with obstruction, without gangrene (principal); E66.01 Morbid (severe) obesity due to excess calories; Z68.37 Body mass index [BMI] 37.0-37.9, adult; F12.90 Cannabis use, unspecified, uncomplicated; Z86.16 Personal history of COVID-19
CPT/HCPCS: 49592; 88304; C1781; J0131; J0690; J1100; J1885; J2405; J2795; J3010

== ENCOUNTER → 2022-11-02 11:35 | Outpatient (BNVA) | payer MEDICAID, SELFPAY | PROVIDERS: PCP Family Medicine; Visit Provider Surgery ==

== ENCOUNTER 2023-02-11 13:48 | Outpatient (REF) | payer MEDICAID, SELFPAY ==
[2023-02-11 16:40] LABS: Uric Acid 8.2 mg/dL (3.4-7.0)
== END 2023-02-11 13:49 | disposition home or self-care (01) ==
LOC: HO.HHCL 13:48
PROVIDERS: Visit Provider Registered Nurse
DX: M25.571 Pain in right ankle and joints of right foot (principal); G89.29 Other chronic pain
CPT/HCPCS: 36415; 84550

== ENCOUNTER 2023-09-26 10:54 | Emergency (ER) | payer OTHER, SELFPAY ==
[2023-09-26 11:22] VITALS: BP 116/89; PULSE 86; RESP 16; TEMP 36.8; O2SAT 98; BMI 37.2
--- NOTE | 2023-09-26 11:25 | ED.GENADULT ---
HPI - General Adult General Chief complaint: Skin/Abscess/Foreign Body Stated complaint: Skin tag (?) on leg Time Seen by Provider: 09/26/23 11:31 Source: patient Mode of arrival: ambulatory Limitations: no limitations History of Present Illness HPI narrative: Patient is an otherwise 48 yo male presenting to the ED for a complaint of an uncomfortable, bleeding skin tag. Patient reports that he has had a skin tag on his upper right thigh for several decades that has been growing in size. Patient reports yesterday he was playing softball and while trying to field the soft ball struck the area causing the skin tag to bleed. Patient denies any current pain or bleeding. MD complaint: Skin tag bleeding Relieving factors: none Exacerbating factors: none Associated symptoms: denies other symptoms Treatments prior to arrival: none Related Data Home Medications Medication Instructions Recorded Confirmed multivitamin with iron-mineral 1 tab PO DAILY 10/20/22 10/20/22 Previous Rx's Medication Instructions Recorded ibuprofen 600 mg tablet 600 mg PO Q6H PRN pain #30 tabs 10/20/22 oxycodone-acetaminophen 5 mg-325 1 tab PO Q4-6H PRN pain #15 tabs 10/27/22 mg tablet (Percocet) oxycodone 5 mg tablet 5 mg PO .TID PRN pain #15 tabs 10/30/22 Allergies Allergy/AdvReac Type Severity Reaction Status Date / Time No Known Allergies Allergy Verified 11/02/22 11:59 [No Known Allergies*] Review of Systems Constitutional: Constitutional: Reports no additional constitutional complaints, Denies chills, Denies fever(s) and Denies night sweats Eyes: Eyes: Reports no additional eye complaints, Denies blurry vision, Denies change in vision, Denies diplopia, Denies eye discharge, Denies loss of vision and Denies eye pain ENT: Denies dizziness Cardiovascular: Cardiovascular: Reports no additional cardiovascular complaints, Denies chest pain, Denies lightheadedness, Denies Loss of Consciousness and Denies dyspnea Respiratory: Respiratory: Reports no additional respiratory complaints and Denies dyspnea Gastrointestinal: Gastrointestinal: Reports no additional gastrointestinal complaints, Denies abdominal pain, Denies melena, Denies hematochezia, Denies change in bowel habits and Denies change in stool character Genitourinary: Genitourinary: Reports no additional male genitourinary complaints, Denies hematuria, Denies oliguria, Denies difficulty urinating, Denies dysuria, Denies urinary frequency, Denies urinary hesitancy, Denies urinary incontinence and Denies urinary urgency Musculoskeletal: Musculoskeletal: Reports no additional musculoskeletal complaints, Denies numbness and Denies tingling Integumentary/Breasts: Comments: right inner thigh skin tag Neurologic: Denies dizziness, Denies loss of vision, Denies numbness and Denies tingling Psychiatric: Psychiatric: Reports no additional psychiatric complaints Endocrine: Endocrine: Reports no additional endocrine complaints Hematologic/Lymphatic: Hematologic/Lymphatic: Reports no additional hematologic/lymphatic complaints Allergic/Immunologic: Allergic/Immunologic: Reports no additional allergic/immunologic complaints [facility] Past Medical History Attestation statement: The following information was validated with the patient. Source: old records reviewed and nursing notes reviewed Medical History Hx of gout Obesity COVID-19 No known health problems Surgical History Hx of umbilical hernia repair History of bilateral inguinal hernia repair Social History Social History Are you a primary customer care specialist to a significant other at home: No Do you presently have visiting nurse or other home services: No Alcohol intake: current Alcohol intake frequency: does not drink Patient Tobacco Use Status: Never used Tobacco Smoked in Last 30 Days: No Substance Use Type: Marijuana Substance Use Frequency: Daily Advance Directives: No Advance Directives Information Provided: Yes Physical Exam ED Vital Signs: Vital Signs - 24 hr 09/26/23 11:22 09/26/23 12:58 Temperature 98.3 F 97.8 F Pulse Rate 86 83 Respiratory Rate 16 18 Blood Pressure 116/89 129/59 L Pulse Oximetry 98 96 Oxygen Delivery Method Room Air Room Air BMI result Body Mass Index 37.2 Const General: cooperative, comfortable, alert and awake Nutritional Appearance: obese Orientation/consciousness: patient oriented x3 Limitations: no limitations HENMT Head: Yes normal to inspection and Yes atraumatic Ears: hearing grossly normal bilaterally and external ears normal General nose exam: Normal external nose present, no nasal discharge noted and no epistaxis Face and sinus: Yes normal facial exam, No abrasion and No laceration Mouth: Normal oral and palatal mucosa present, no drooling and no muffled voice Eyes General: appearance normal, both eyes and all related structures Periorbital: periorbital findings normal Eyelids: Yes eyelids normal Conjunctivae: conjunctivae normal Pupils: Equal, round and reactive pupils present EOM: EOMs intact bilaterally Neck Neck: Yes normal visual inspection, Yes full ROM and Yes no lymphadenopathy Chest Chest palpation & inspection: normal inspection of the chest Resp Effort & Inspection: normal respiratory effort and able to speak in complete sentences GI Inspection: Yes normal to inspection Skin General skin exam: hypertrophy Neuro General: patient oriented x3 Cranial nerves: Yes Equal, round and reactive pupils present Cognition (Neuro): normal cognition Motor exam (neuro): 5/5 motor strength present throughout Sensory Exam: Normal double simultaneous stimulation for sensation Coordination: [id number] test normal Extrem General: Yes full ROM and Yes capillary refill normal Upper/lower leg/hip images: 1. large skin growth present, partially from it's base Psych Appearance: grossly normal Mental Status: mental status grossly normal Affect: normal affect Attitude: cooperative Thought process: Normal thought process present Thought content: Normal thought content present Insight: Good insight present (Psych) Course Course Course Narrative: RME- 48 year old male presents for evaluation of a skin tag to his right inner thigh. It has been there for years and appears to be larger in size over the last few years. It was bleeding since last night after being hit by a soft ball Medications Administered Discontinued Medications Generic Name Dose Route Start Last Admin Trade Name Freq PRN Reason Stop Dose Admin Lidocaine/Epinephrine 10 ml 09/26/23 12:11 09/26/23 12:37 Lidocaine Hcl 1%/Epi 1:100,000 10 Ml Vial SUBCUT 09/26/23 12:12 10 ml ONCE ONE Administration Procedures Procedure Narrative Procedure Narrative: Patient's right thigh skin growth was removed. The base of the growth was anesthetized with 1% lidocaine with epi, without incident. I used bed side cautery to remove the growth. The growth was appropriately labeled and sent to the lab for pathology examination. Medical Decision Making Medical Decision Making MDM Narrative: Patient is a 48 year old assigned male at with a history of gout presenting to the emergency department today with a partially removed skin growth to the right thigh. Patient's physical exam showed a large skin growth to the right thigh that was partially torn away from it's base. I explained my physical exam findings to the patient. I answered all questions asked by the patient. Patient's skin growth was numbed with 1% lidocaine with epinephrine and removed with cautery, without incident. The growth was appropriately packaged and sent to the lab for pathology examination. I stressed the importance of the patient taking his medication as prescribed. I stressed the importance of the patient following up with his primary care provider and a emergency medical services coordinator. I stressed the importance of the patient returning to the emergency department immediately if he were to develop any dizziness, shortness of breath, difficulty breathing, chest pain, blurry vision, loss of vision, nausea, vomiting, abdominal pain, fever, chills, back pain, or any other complaints. Patient verbalized agreement and understanding with this treatment plan and discharge. Differential Diagnosis Differential Diagnoses: The differential diagnosis associated with the presentation includes Abnormal skin growth Partially torn skin growth Admission/Observation Consideration of admission/observation: Escalation of care including admission/observation considered Patient would have been admitted to the hospital had his clinical presentation warranted hospital admission. Discharge Plan Discharge Clinical Impression: Abnormal skin growth Patient Disposition: Home, Self-Care Additional Instructions: Your skin tag was removed and sent down to our pathology lab for further testing. We will not follow up with this testing - that is why it is crucial for you to inform your PCP and emergency medical services coordinator for them to follow up with these results. Follow up with your primary care provider. Return to the emergency department immediately if your symptoms worsen or if you develop any dizziness, shortness of breath, difficulty breathing, chest pain, blurry vision, loss of vision, nausea, vomiting, abdominal pain, fever, chills, back pain, or any other complaints. Prescriptions: No Action oxycodone-acetaminophen [Percocet] 5-325 mg tablet 1 tab PO Q4-6H PRN (Reason: pain) Qty: 15 0RF Rx Instructions: Partial Fill upon patient request. ibuprofen 600 mg tablet 600 mg PO Q6H PRN (Reason: pain) Qty: 30 0RF Multi M Vitamin Tablet 1 tab PO DAILY oxycodone 5 mg tablet 5 mg PO .TID PRN (Reason: pain) Qty: 15 0RF Rx Instructions: Partial Fill upon patient request. Referrals: [facility] [Provider Group] (Call to establish and follow up with a emergency medical services coordinator.) [facility] [Provider Group] (Call to establish and follow up with a primary care provider. If you already have a primary care provider, please follow up with them.) [facility] [Provider Group] (Call to establish and follow up with a primary care provider. If you already have a primary care provider, please follow up with them.) [facility] [Provider Group] (Call to establish and follow up with a primary care provider. If you already have a primary care provider, please follow up with them.) Stand Alone Forms: Work/School Release Interventions: ED Discharge Assessment Last Done: 09/26/23 13:04 Discharge Date/Time: 09/26/23 13:04 Print Language: Maltese
[2023-09-26] MEDS: Lidocaine HCl 1%/Epi 1:100,000 10 ML VIAL SUBCUT (12:37)
[2023-09-26 12:58] VITALS: BP 129/59; PULSE 83; RESP 18; TEMP 36.6; O2SAT 96
== END 2023-09-26 13:04 | disposition home or self-care (01) ==
PROVIDERS: Emergency Provider Student in an Organized Health Care Education/Training Program
DX: L91.8 Other hypertrophic disorders of the skin (principal); Z79.899 Other long term (current) drug therapy
CPT/HCPCS: 11200; 88304; 99284

== ENCOUNTER 2023-12-23 07:42 | Emergency (ER) | payer SELFPAY ==
--- NOTE | ~2023-12-23 | US_ITS ---
Examination: Soft tissue ultrasound CLINICAL INFORMATION: Pain and swelling following throwing of soft ball injury there is right shoulder COMPARISON: Radiograph of the same day. FINDINGS: Targeted sonographic evaluation of area of pain and discomfort in the right upper arm-shoulder reveals no evidence of fluid collection, muscle discontinuation, irregularities. There are no evidence of gap in the area of discomfort to suggest muscle tear. US/US extremity nonvascular self IMPRESSION: Normal study. No abnormal findings based on the sonographic evaluation. If clinically indicated follow-up by MRI
--- NOTE | ~2023-12-23 | XR_ITS ---
EXAMINATION: XR SHOULDER, RIGHT CLINICAL INFORMATION: Injury COMPARISON: None available. TECHNIQUE: AP external rotation, Grashey, scapular Y, and axillary views of the right shoulder. FINDINGS: The bones and soft tissues are normal. No fracture. Glenohumeral and acromioclavicular alignment is anatomic with normal joint space. No abnormal soft tissue calcifications. XR/XR shoulder RT min 2V IMPRESSION: Normal right shoulder.
[2023-12-23 08:06] VITALS: BP 127/78; PULSE 89; RESP 16; TEMP 36.2; O2SAT 95; BMI 36.4
--- NOTE | 2023-12-23 09:06 | ED_ITS ---
HPI - Extremity Problem General Chief complaint: Extremity Injury, Upper Stated complaint: R Shoulder pain Time Seen by Provider: 12/23/23 09:05 Source: patient and RN notes reviewed Mode of arrival: ambulatory Limitations: no limitations History of Present Illness ED Provider: Denisha Bacon PA-C HPI Narrative: This is a 48-year-old male, with no known medical problems, who presents emergency department with complaints of right shoulder pain and right bicep pain x2 weeks. Patient states that he was the picture in a softball game when after throwing a softball he felt something tear pulled down in his right shoulder and arm. He was unable to play in the rest of the game. He has been taking ibuprofen over the last 2 weeks however states that he still has continued right shoulder and right bicep pain. Denies any history of any problems to his right shoulder. Reports some numbness and tingling into her right fingers. No other complaints or concerns at this time. MD Complaint: extremity pain Pain Consistency: constant Location: right and upper extremity Quality: aching Radiation: distal Relieving factors: nothing Associated symptoms: denies other symptoms Related Data Home Medications ?Medication ?Instructions ?Recorded ?Confirmed multivitamin with iron-mineral 1 tab PO DAILY 10/20/22 10/20/22 Previous Rx's ?Medication ?Instructions ?Recorded ibuprofen 600 mg tablet 600 mg PO Q6H PRN pain #30 tabs 10/20/22 oxycodone-acetaminophen 5 mg-325 1 tab PO Q4-6H PRN pain #15 tabs 10/27/22 mg tablet (Percocet) oxycodone 5 mg tablet 5 mg PO .TID PRN pain #15 tabs 10/30/22 acetaminophen 500 mg tablet 500 mg PO Q6H PRN pain #30 tabs 12/23/23 (Tylenol Extra Strength) ibuprofen 600 mg tablet 600 mg PO Q6H PRN pain #30 tabs 12/23/23 oxycodone 5 mg tablet 5 mg PO Q6H PRN pain #10 tabs 12/23/23 Allergies Allergy/AdvReac Type Severity Reaction Status Date / Time No Known Allergies Allergy Verified 12/23/23 08:10 [No Known Allergies*] Review of Systems 2 Review of Systems: Yes all other systems are reviewed and are negative Constitutional: Constitutional: Reports as per [facility] Past Medical History Attestation statement: The following information was validated with the patient. Medical History Hx of gout Obesity COVID-19 No known health problems Surgical History Hx of umbilical hernia repair History of bilateral inguinal hernia repair Social History Social History Are you a primary assisted living care manager to a significant other at home: No Do you presently have visiting nurse or other home services: No Alcohol intake: current Alcohol intake frequency: does not drink Patient Tobacco Use Status: Never used Tobacco Substance Use Type: Marijuana Advance Directives: No Physical Exam 2 Vital Signs: Vital Signs: Last Vital Signs Temp 96.9 F 12/23/23 14:55 Pulse 80 12/23/23 14:55 Resp 20 12/23/23 14:55 BP 134/83 12/23/23 14:55 Pulse Ox 94 12/23/23 14:55 O2 Del Method Room Air 12/23/23 14:55 BMI result Body Mass Index 36.4 Const: General: cooperative, comfortable and no acute distress O rientation/consciousness: patient oriented x3 Limitations: no limitations HEENT: Head: Yes normal to inspection, Yes normocephalic and Yes atraumatic Ears: hearing grossly normal bilaterally General nose exam: Normal external nose present Face and sinus: Yes normal facial exam Mouth: Normal oral and palatal mucosa present, oropharynx normal and moist mucous membranes Throat: Yes posterior oropharynx normal Eyes: General: appearance normal, both eyes and all related structures E yelids: Yes eyelids normal Conjunctivae: conjunctivae normal Sclerae: s clerae normal Pupils: Equal, round and reactive pupils present EOM: EOMs intact bilaterally Neck: Neck: Yes normal visual inspection, Yes full ROM and Yes no lymphadenopathy Lymphatic: no lymphadenopathy noted Chest: Chest palpation & inspection: normal inspection of the chest Resp: Effort & Inspection: normal respiratory effort and able to speak in complete sentences Auscultation: clear to auscultation bilaterally, no crackles, no rales, no rhonchi and no wheezes Cardio: Rate: regular rate Rhythm: regular rhythm Heart sounds: S1 normal heart sound present and S2 normal heart sound present GI: Inspection: Yes normal to inspection Skin: General skin exam: no rashes or lesions noted Trauma: no lacerations or abrasions Wounds: no wounds Neuro: General: patient oriented x3 and moves all extremities Cranial nerves: Yes Equal, round and reactive pupils present Extrem: Other: Right upper extremity, with no gross bony deformity or swelling overlying the right shoulder. He does have tenderness palpation along the right AC joint. Good range of motion of the shoulder without difficulty. Patient does have ?bicep muscle deformity Strong radial pulse. Able to flex and extend at the elbow. Distal bicep intact, able to perform hook test. General: Yes normal to inspection Left upper extremity: normal to inspection Right lower extremity: normal to inspection Left lower extremity: normal to inspection Course Reevaluation(s) Reevaluation #1: X-ray unremarkable, ultrasound negative. Given biceps appearance, reached out to Tobias Haro PA-C from orthopedics for recommendations. Time: 14:29 Reevaluation #2: Spoke to Orthopedic PA, Tobias Haro, given appearance as well as physical exam findings that I messaged her, looks like a proximal biceps tendon injury, this is not urgent and requires no surgery at this time. Recommending R.I.C.E. discussed with patient. He understands and agrees with plan. Patient stable for discharge. Given return precautions as well as orthopedic follow-up. Time: 14:43 Medical Decision Making Medical Decision Making MDM Narrative: This is a 48 year old male, with no known medical problems, who presents emergency right shoulder right bicep after throwing a softball two weeks ago. On arrival, vital signs within normal limits. Patient does have ? Pepe deformity, given findings, will obtain ultrasound. X-ray of the right shoulder also ordered to rule out any bony abnormality. Differential diagnoses include fracture, sprain, strain, dislocation, biceps tendon rupture, tendinopathy, tendonitis. Differential Diagnosis Differential Diagnoses: The differential diagnosis associated with the presentation includes See above Consult Healthcare Provider Management of the patient was discussed with: [employer] Developer Tobias Haro PA-C, orthopedic PA Radiology Impression Discussion of test interpretation with radiology: I have reviewed the radiologist's reading. Radiologist Impression: FINDINGS: The bones and soft tissues are normal. No fracture. Glenohumeral and acromioclavicular alignment is anatomic with normal joint space. No abnormal soft tissue calcifications. XR/XR shoulder RT min 2V IMPRESSION: Normal right shoulder. Examination: Soft tissue ultrasound CLINICAL INFORMATION: Pain and swelling following throwing of soft ball injury there is right shoulder COMPARISON: Radiograph of the same day. FINDINGS: Targeted sonographic evaluation of area of pain and discomfort in the right upper arm-shoulder reveals no evidence of fluid collection, muscle discontinuation, irregularities. There are no evidence of gap in the area of discomfort to suggest muscle tear. US/US extremity nonvascular self IMPRESSION: Normal study. No abnormal findings based on the sonographic evaluation. If clinically indicated follow-up by MRI Dictated By: Valery Terrell MD Discharge Plan Discharge Clinical Impression: Biceps strain Qualifiers: Encounter type: initial encounter Laterality: right Qualified Code(s): S46.211A - Strain of muscle, fascia and tendon of other parts of biceps, right arm, initial encounter Patient Disposition: Home, Self-Care Instructions: Muscle Strain (ED), Tendon Rupture (ED) Additional Instructions: Your seen in the emergency department due to a right arm bicep pain. Your ultrasound does not show any abnormalities. Your x-ray was normal. Your physical exam is concerning for a proximal buttock tendon injury. You need to follow-up with the orthopedics, call today to make an appointment. Rest, ice, and alternate between ibuprofen and Tylenol as needed for pain. Take oxycodone only for severe pain. Please be advised that this can cause drowsiness, do not drink alcohol or drive while taking this medication. If any new or worsening symptoms occur including but not limited to chest pain, shortness of breath, please return for re-evaluation. Prescriptions: New ibuprofen 600 mg tablet 600 mg PO Q6H PRN (Reason: pain) Qty: 30 0RF acetaminophen [Tylenol Extra Strength] 500 mg tablet 500 mg PO Q6H PRN (Reason: pain) Qty: 30 0RF oxycodone 5 mg tablet 5 mg PO Q6H PRN (Reason: pain) Qty: 10 0RF Rx Instructions: Partial Fill upon patient request. No Action oxycodone-acetaminophen [Percocet] 5-325 mg tablet 1 tab PO Q4-6H PRN (Reason: pain) Qty: 15 0RF Rx Instructions: Partial Fill upon patient request. ibuprofen 600 mg tablet 600 mg PO Q6H PRN (Reason: pain) Qty: 30 0RF Multi M Vitamin Tablet 1 tab PO DAILY oxycodone 5 mg tablet 5 mg PO .TID PRN (Reason: pain) Qty: 15 0RF Rx Instructions: Partial Fill upon patient request. Referrals: [facility] [Provider Group] Stand Alone Forms: Work/School Release Interventions: ED Discharge Assessment Last Done: 12/23/23 14:55 Discharge Date/Time: 12/23/23 14:56 Print Language: [place]
[2023-12-23 14:25] VITALS: BP 134/83; PULSE 80; RESP 20; TEMP 36.1; O2SAT 94
[2023-12-23 14:55] VITALS: BP 134/83; PULSE 80; RESP 20; TEMP 36.1; O2SAT 94
== END 2023-12-23 14:56 | disposition home or self-care (01) ==
PROVIDERS: Emergency Provider Emergency Medicine
DX: S46.211A Strain of muscle, fascia and tendon of other parts of biceps, right arm, initial encounter (principal); X50.9XXA Other and unspecified overexertion or strenuous movements or postures, initial encounter; Y93.64 Activity, baseball; Y92.320 Baseball field as the place of occurrence of the external cause; Y99.9 Unspecified external cause status
CPT/HCPCS: 73030; 76882; 99283; 99284

== ENCOUNTER 2024-12-05 07:40 | Emergency (ER) | payer SELFPAY ==
--- NOTE | ~2024-12-05 | XR_ITS ---
EXAMINATION: XR ANKLE, RIGHT CLINICAL INFORMATION: rolled ankle COMPARISON: None available. TECHNIQUE: AP, lateral, and mortise views of the right ankle. FINDINGS: No fracture, dislocation, or suspicious bone lesion. Normal alignment. The talar dome is intact. Ankle mortise is preserved. There are mild to moderate degenerative changes in the tibiotalar joint and fibulotalar joint. Corticated ossicle subjacent to the medial malleolus is likely secondary to old trauma. Os trigonum noted. There is a moderate-sized plantar calcaneal spur. No definite ankle joint effusion seen on the lateral projection. There is mild lateral and medial soft tissue swelling. XR/XR ankle RT 2V IMPRESSION: 1. No acute bony abnormalities identified. Electronically signed by: Kingsley Bishop MD 12/05/2024 08:46 AM EDT
[2024-12-05 07:56] VITALS: BP 103/66; PULSE 96; RESP 18; TEMP 35.9; O2SAT 98; BMI 37.5
--- NOTE | 2024-12-05 08:09 | PC.NURSE ---
patient a&ox3, pt c/o 02/01 rt ankle pain, pt has iced and taken ibuprofen .ice applied in the ED< pt awaiting xray.
--- OUTSIDE RECORDS SUMMARY | 2024-12-05 08:09 | XMS_ITS | Clinical Summary ---
Author Organization [employer] [facility] Address [address] [place] [address] Care Team Providers Care Registered Nurse Surgical Services Name Role Phone Unavailable Primary Care Provider Unavailabl e Social History Tobacco Use Types Packs/Day Years Used Date Smoking Tobacco: Never Assessed Sex and Gender Information Value Date Recorded Sex Assigned at Not on file Legal Sex Male 4:48 PM EST Gender Identity Not on file Sexual Orientation Not on file Plan of Treatment Health Maintenance Due Date Last Done Comments DTaP,Tdap,and Td Vaccines (1 - Tdap) 1993 Hepatitis B Vaccines (1 of 3 - 19+ 3-dose series) 1993 Pneumococcal Vaccine: 50+ Ye ars (1 of 1 - PCV) 02/02/2024 Zoster Vaccines (1 of 2) 02/02/2024 COVID-19 Vaccine (1 - 2023-2 5 season) 2024 Influenza Vaccine (Season Ended) 2025 HIB Vaccines Aged Out No longer eligi ble based on patient's age to complete this topic HPV Vaccines Aged Out No longer eligi ble based on patient's age to complete this topic Hepatitis A Vaccines Aged Out No long er eligible based on patient's age to complete this topic IPV Vaccines Aged Out No longer eligi ble based on patient's age to complete this topic MMR Vaccines Aged Out No longer eligi ble based on patient's age to complete this topic Meningococcal ACWY Vaccine Aged Out N o longer eligible based on patient's age to complete this topic Meningococcal B Vaccine Aged Out No l onger eligible based on patient's age to complete this topic Pneumococcal Vaccine: Pediat rics (0 to 5 Years) and At-Risk Patients (6 to 64 Years) Aged Out No longer eligible b ased on patient's age to complete this topic RSV Immunization Patients Un shannon 20 months Aged Out No longer eligible b ased on patient's age to complete this topic Varicella Vaccines Aged Out No longer eligible based on patient's age to complete this topic
--- OUTSIDE RECORDS SUMMARY | 2024-12-05 08:09 | XMS_ITS | Clinical Summary ---
Author Organization [employer] Address [address] [facility] [address] [place] [address] Care Team Providers Care Machine Tracer Name Role Phone Chyna Whelan DO Primary Care Provider [phone] Allergies No known active allergies Medications traMADol (Ultram) 50 MG tablet Take 1 tablet by mouth every 12 (twelve) hours. 03/02/2022 Active meloxicam (Mobic) 15 MG tablet Take 1 tablet by mouth 1 (one) time each day. 03/02/2022 Active cyclobenzaprine (Flexeril) 10 MG tablet take 1 tablet by oral route at bedtime as needed 03/02/2022 Active pseudoephedrine (Sudafed) 30 MG tablet Take 1 tablet (30 mg) by mouth every 4 (four) hours if needed for congestion. 30 tablet 02/22/2023 Active Active Problems Problem Noted Date Diagnosed Date Class 2 obesity due to exces s calories without serious comorbidity with body mass index (BMI) of 36.0 to 36.9 in adult 02/26/2023 Assessment & Plan (02/26/2023 3:55 PM EDT): Discussed the impacts of obesity, diet and exercise on all cause mortality. Routine adult health maintenance 02/26/2023 Assessment & Plan (02/26/2023 3:47 PM EDT): PHQ: 0 STI: denies sti testing. Substance use: smokes marijuana 1/8th a week, denies other drug use, etoh = 12 pack a week. Lipids: labs ordered. Colonoscopy: referral sent for colorectal cancer screening. Eye exam: referral placed Dental home: Advised [facility] dental Skin tag 02/26/2023 Assessment & Plan (02/26/2023 3:50 PM EDT): Reports multiple skin tags on chest and in thigh area. Would like a referral to derm to have them removed. Acute otitis media 02/26/2023 Assessment & Plan (02/26/2023 3:49 PM EDT): It seems that the infection may have traveled to the . Giving Augmentin. Patient understands to finish cycle. RTC PRN if symptoms worsen or fail to improve. Immunizations Name Administration Dates Next Due Pfizer Covid-19 Vaccine 12+ 09/26/2020, Tdap 12/19/2014 Social History Tobacco Use Types Packs/Day Years Used Date Smoking Tobacco: Never Passive Smoke Exposure: Never Smokeless Tobacco: Never Tobacco Cessation:Counseling Given: Not Answered Alcohol Use Standard Drinks/Week Comments Never 0 (1 standard drink = 0.6 oz pur e alcohol) Depression Answer Date Recorded Patient Health Questionnaire-9 Score 0 02/26/2023 Housing Stability Answer Date Recorded What is your housing situation today? I have nicko hutchins 05/25/[address] you li ve. Do you have problems with any of the following? None of the above 05/25/2023 Food Insecurity Answer Date Recorded Within the past 12 months, y ou worried that your food would run out before you got money to buy more: Never True 05/25/2023 Within the past 12 months,th e food you bought just didn't last and you didn't have enough money to get more: Never True Transportation Answer Date Recorded In the past 12 months, has l ack of transportation kept you from medical appts, meetings, work or from getting things needed for daily living? No 05/25/2023 Utilities Answer Date Recorded In the past 12 months, has t he electric, gas, oil or water company threatened to shut off services in your home? No 05/25/2023 Depression Answer Date Recorded Patient Health Questionnaire-2 Score 0 02/26/2023 Sex and Gender Information Value Date Recorded Sex Assigned at Male 05/25/2022 10:38 AM EDT Legal Sex Male 10:38 AM EDT Gender Identity Male 05/25/2022 10:38 AM EDT Sexual Orientation Straight 05/25/2022 10 :38 AM EDT Last Filed Vital Signs Vital Sign Reading Time Taken Comments Blood Pressure 136/84 02/26/2023 2:08 PM EDT Pulse 94 02/26/2023 2:08 PM EDT Temperature 36.6 ??C (97.9 ??F) 02/26/2023 2:08 PM ED T Respiratory Rate 16 02/26/2023 2:08 PM EDT Oxygen Saturation 98% 02/26/2023 2:08 PM EDT Inhaled Oxygen Concentration - - Weight 120 kg (263 lb 9.6 oz) 02/26/2023 2:08 PM EDT Height 181.6 cm (5' 11.5 ) 02/26/2023 2:08 PM ED T Body Mass Index 36.25 02/26/2023 2:08 PM EDT Plan of Treatment Health Maintenance Due Date Last Done Comments CT Colonography 1974 Colonoscopy 1974 Colorectal Cancer Screening 1974 FIT DNA/Cologuard 1974 FIT 1974 FOBT 1974 HIV Screening 1974 Lipid Panel 1974 Sigmoidoscopy 1974 Alcohol/Substance Use Screening 1986 Family Planning (PISQ) 1989 Hepatitis C Screening 02/02/1992 Hepatitis B Vaccines (1 of 3 - 19+ 3-dose series) 1993 Pneumococcal Vaccine: 50+ Years (1 of 1 - PCV) 02/02/2024 Zoster Vaccines (1 of 2) 02/02/2024 Depression Screening 02/27/2024 02/26/2023, 02/26/2023 Tobacco Screening 02/27/2024 02/26/2023 COVID-19 Vaccine (3 - 2023-2 5 season) 2024 09/26/2020, 09/05/2020 Influenza Vaccine (#1) 2024 SDOH Screening 10/12/2024 10/13/2023 DTaP/Tdap/Td Vaccines (2 - T d or Tdap) 12/19/2024 12/19/2014 RSV Patients and Patients Aged 60 years or older (1 - 1-dose 75+ series) 2049 HIB Vaccines Aged Out No longer eligi [...] patient's age to complete this topic Meningococcal Vaccine Aged Out No mohan luis eligible based on patient's age to complete this topic RSV under 20 months Aged Out No longe r eligible based on patient's age to complete this topic Rotavirus Vaccines Aged Out No longer eligible based on patient's age to complete this topic Insurance HS FULL Care Teams Machine Tracer Relationship Specialty Start Date End Date Chyna Whelan DO [address] [place] [id number] PCP - General Family Medicine 12/20/20
--- OUTSIDE RECORDS SUMMARY | 2024-12-05 08:09 | XMS_ITS | Encounter Summary ---
Author Organization [employer] Address [address] [facility] [address] [place] [address] Care Team Providers Care Dam Attendant Name Role Phone Chyna Whelan DO Primary Care Provider Reason for Visit * Reason Onset Date Comments Appointment Request 02/09/2023 Encounter Details Date Type Department Care Team ([facility] st Contact Info) Description 02/09/2023 Telephone [facility] MED[facility] [address] [place] [address] Chyna Whelan DO [address] [place] [address] Appointment Request Social History Tobacco Use Types Packs/Day Years Used Date Smoking Tobacco: Never Assessed Sex and Gender Information Value Date Recorded Sex Assigned at Male 05/25/2022 10:38 AM EDT Legal Sex Male 10:38 AM EDT Gender Identity Male 05/25/2022 10:38 AM EDT Sexual Orientation Straight 05/25/2022 10 :38 AM EDT documented as of this encounter Miscellaneous Notes * Telephone Encounter - Monica Portillo - 02/09/2023 10:58 AM EDT TC from [facility] requesting a call back to book PE pt need it for work. 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 PCP DR. Whelan documented in this encounter Plan of Treatment Not on file documented as of this encounter Visit Diagnoses Not on filedocumented in this encounter Care Teams Dam Attendant Relationship Specialty Start Date End Date Chyna Whelan DO [address] [place] [phone] PCP - General Family Medicine 12/20/20 documented as of this encounter
--- NOTE | 2024-12-05 08:22 | ED_ITS ---
HPI - Extremity Injury (Lower) General Chief Complaint: Extremity Injury, Lower Stated Complaint: Ankle injury Time Seen by Provider: 12/05/24 08:05 Source: patient Mode of arrival: ambulatory Limitations: no limitations History of Present Illness ED Provider: Rod Reeves PA-C HPI Narrative: 49 yo male To the ER for evaluation of right ankle pain after he rolled it while walking down the stairs last night around 10:00. Patient reports he heard a crack when he rolled his ankle and has had pain and swelling to the inside and outside of his ankle since. He has been applying ice and he took ibuprofen this morning. 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 He is able to bear weight and ambulate but with some discomfort. He denies any numbness, tingling, weakness. No other injuries. MD complaint: ankle injury Onset (ago): hour(s) Type of Injury: inversion Place: home Severity: moderate Relieving factors: NSAID, cold therapy and rest Exacerbating factors: weight bearing, movement and palpation Context: walking Associated symptoms: snap/pop sensation, swelling and ambulatory Other symptoms: none Treatments prior to arrival: cold therapy and NSAIDS Related Data Home Medications ?Medication ?Instructions ?Recorded ?Confirmed multivitamin with iron-mineral 1 tab PO DAILY 10/20/22 10/20/22 Previous Rx's ?Medication ?Instructions ?Recorded ibuprofen 600 mg tablet 600 mg PO Q6H PRN pain #30 tabs 10/20/22 oxycodone-acetaminophen 5 mg-325 1 tab PO Q4-6H PRN pain #15 tabs 10/27/22 mg tablet (Percocet) oxycodone 5 mg tablet 5 mg PO .TID PRN pain #15 tabs 10/30/22 acetaminophen 500 mg tablet 500 mg PO Q6H PRN pain #30 tabs 12/23/23 (Tylenol Extra Strength) ibuprofen 600 mg tablet 600 mg PO Q6H PRN pain #30 tabs 12/23/23 oxycodone 5 mg tablet 5 mg PO Q6H PRN pain #10 tabs 12/23/23 colchicine 0.6 mg capsule 0.6 mg PO BID #14 caps 08/03/24 ibuprofen 400 mg tablet 400 mg PO Q6H PRN pain #14 tabs 08/03/24 Allergies Allergy/AdvReac Type Severity Reaction Status Date / Time No Known Allergies Allergy Verified 12/05/24 07:57 [No Known Allergies*] Review of Systems Review of Systems: Yes all other systems are reviewed and are negative [facility] Past Medical History Medical History Hx of gout Obesity COVID-19 No known health problems Surgical History Hx of umbilical hernia repair History of bilateral inguinal hernia repair Social History Social History Are you a primary group care worker to a significant other at home: No Do you presently have visiting nurse or other home services: No Alcohol intake: current Alcohol intake frequency: holidays/special occasions only Patient Tobacco Use Status: Never used Tobacco Smoked in Last 30 Days: No Use of substances other than those prescribed or required for medical reasons: Yes Substance Use Type: Marijuana Advance Directives: No Advance Directives Information Provided: Yes Physical Exam Vital Signs: Vital Signs: Last Vital Signs Temp 96.6 F L 12/05/24 07:56 Pulse 96 12/05/24 07:56 Resp 18 12/05/24 07:56 BP 103/66 12/05/24 07:56 Pulse Ox 98 12/05/24 07:56 O2 Del Method Room Air 12/05/24 07:56 BMI result Body Mass Index 37.5 Appearance: Alert. Oriented X3. No acute distress. HEENT: normal inspection CVS: Normal heart rate and rhythm. Pulses normal. Respiratory: No respiratory distress. Skin: Skin warm and dry. Normal skin color. Normal skin turgor. No rashes. Extremities: right ankle with mild/moderate swelling of the medial and lateral ankle. normal ROM with pain upon dorsiflexion. no gross deformity. no swelling of the foot. 2+ DP pulses. Neuro: Oriented X 3. No motor deficit. No sensory deficit. Medical Decision Making Medical Decision Making MDM Narrative: 49-year-old male presenting to the ER for evaluation of right ankle pain and swelling after he rolled it while walking downstairs yesterday. He is ambulatory but has some swelling and discomfort. No gross deformity on examination. X-ray today is negative for acute fracture. Will treat for sprain with rest, ice, compression, elevation, NSAIDs. Activity modification and symptomatic management discussed. Patient is stable for discharge home with outpatient follow-up as needed. Patient agrees with plan all questions were answered. Differential Diagnosis Differential Diagnoses: The differential diagnosis associated with the presentation includes ankle fracture, ankle sprain, foot fracture, foot contusion Independent Interpretation I performed an independent interpretation of an: Plain X-Ray Interpretation: No acute fracture Radiology Impression Discussion of test interpretation with radiology: I have reviewed the radiologist's reading. External Record Review External record reviewed: Prior outpatient labs Prescription Management I considered prescription management with: Pain Medication Critical Care Time Critical Care Time Critical Care Time: No Discharge Plan Discharge Clinical Impression: Ankle sprain and strain Patient Disposition: Home, Self-Care Instructions: Ankle Sprain (DC) Additional Instructions: Your x-ray today was normal. Rest your ankle and elevate your foot when possible. Recommend LISA wrap for support and compression. Use ice several times per day for the next 48 hours. You may bear weight as tolerated. If pain is too severe, use crutches until better. Take Motrin and/or Tylenol as needed for pain. Follow up with your doctor as needed. Prescriptions: No Action oxycodone-acetaminophen [Percocet] 5-325 mg tablet 1 tab PO Q4-6H PRN (Reason: pain) Qty: 15 0RF Rx Instructions: Partial Fill upon patient request. ibuprofen 600 mg tablet 600 mg PO Q6H PRN (Reason: pain) Qty: 30 0RF Multi M Vitamin Tablet 1 tab PO DAILY oxycodone 5 mg tablet 5 mg PO .TID PRN (Reason: pain) Qty: 15 0RF Rx Instructions: Partial Fill upon patient request. colchicine 0.6 mg capsule 0.6 mg PO BID Qty: 14 0RF ibuprofen 400 mg tablet 400 mg PO Q6H PRN (Reason: pain) Qty: 14 0RF ibuprofen 600 mg tablet 600 mg PO Q6H PRN (Reason: pain) Qty: 30 0RF acetaminophen [Tylenol Extra Strength] 500 mg tablet 500 mg PO Q6H PRN (Reason: pain) Qty: 30 0RF oxycodone 5 mg tablet 5 mg PO Q6H PRN (Reason: pain) Qty: 10 0RF Rx Instructions: Partial Fill upon patient request. Stand Alone Forms: Work/School Release Print Language: Kinyarwanda
[2024-12-05 09:06] VITALS: BP 121/80; PULSE 84; RESP 18; TEMP 36.1; O2SAT 98
== END 2024-12-05 09:30 | disposition home or self-care (01) ==
PROVIDERS: Emergency Provider Emergency Medicine
DX: S93.401A Sprain of unspecified ligament of right ankle, initial encounter (principal); W10.8XXA Fall (on) (from) other stairs and steps, initial encounter; M25.571 Pain in right ankle and joints of right foot; Y93.89 Activity, other specified; Y92.018 Other place in single-family (private) house as the place of occurrence of the external cause; Y99.9 Unspecified external cause status
CPT/HCPCS: 73600; 99283

== ENCOUNTER → 2024-12-05 08:35 | Outpatient (BNV) | payer MEDICARE, SELFPAY | PROVIDERS: Emergency Provider Emergency Medicine; Visit Provider Radiology Diagnostic Radiology | DX: S93.401A Sprain of unspecified ligament of right ankle, initial encounter (principal) | CPT/HCPCS: 73600 ==

== ENCOUNTER 2024-12-18 09:57 | Emergency (ER) | payer SELFPAY ==
--- NOTE | ~2024-12-18 | XR_ITS ---
CLINICAL HISTORY: pain, ?gout 3 view left ankle Comparison: None Findings: Small focus of ossification distal to the medial malleolus which may represent an old avulsion or deltoid ligament injury. No acute fracture. 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 No definite gouty tophi or erosions to suggest crystalline arthropathy. Plantar calcaneal enthesophyte. No tibiotalar joint effusion. IMPRESSION: 1. 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 2. Old medial malleolar avulsion or deltoid ligament injury. This document has been electronically signed by: Drew Franklin DO on 12/18/2024 11:58:26
[2024-12-18 10:05] VITALS: BP 128/82; PULSE 93; RESP 19; TEMP 36.6; O2SAT 96; BMI 37.0
--- OUTSIDE RECORDS SUMMARY | 2024-12-18 10:31 | XMS_ITS | Encounter Summary ---
Author Organization [employer] Address [address] [facility] [address] [place] [address] Care Team Providers Care Still Operator Helper Name Role Phone Chyna Whelan DO Primary Care Provider [phone] Reason for Visit * Reason Onset Date Comments Appointment Request 02/09/2023 Encounter Details Date Type Department Care Team (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 PCP DR. Whelan documented in this encounter Plan of Treatment Not on file documented as of this encounter Visit Diagnoses Not on filedocumented in this encounter Care Teams Still Operator Helper Relationship Specialty Start Date End Date Chyna Whelan DO [address] [place] [address] PCP - General Family Medicine 12/20/20 documented as of this encounter
--- NOTE | 2024-12-18 11:02 | ED_ITS ---
HPI - General Adult General Chief complaint: Extremity Injury, Lower Stated complaint: Gout L Foot Time Seen by Provider: 12/18/24 10:10 Source: patient Mode of arrival: ambulatory History of Present Illness ED Provider: Denisha Urias PA-C HPI narrative: 49 year old male with a past medical history of gout presents to the ED with a chief complaint of left ankle, foot, and 1st metatarsal swelling and pain. Patient reports that he went on vacation last week and drank IPA beers and ate many meals containing meats. He states that Wednesday evening he began to have discomfort in his left ankle, then noticed it started to swell and radiate pain into his foot and large toe on Wednesday. Pain worsens with movement, palpation, and with weight-bearing. Patient reports that his current pain is exactly like the gout flare-ups he has had in the past. He states that the gout that he gets usually affects the left ankle. Patient tried ibuprofen because it has helped with his gout flare ups in the past however states that this has not resolved his symptoms. Patient states that the ibuprofen helps temporarily, yet he cannot sleep due to pain or ambulate on his own very well. Patient reports feeling hot on Wednesday night, he attributes this to the great deal of pain he was in, denies any known fevers. Denies SOB, chest pain, abdominal pain, or new lesions or rashes. Denies any other complaints or concerns at this time. complaint: left ankle + foot pain / swelling Onset (ago): day(s) Location: lower extremity (left ankle, foot, 1st metatarsal) Quality: aching Pain Consistency: intermittent Relieving factors: immobilization and medication (ibuprofen temporarily ) Exacerbating factors: movement Associated symptoms: denies other symptoms Treatments prior to arrival: NSAID and cold therapy (ice ) Related Data Home Medications ?Medication ?Instructions ?Recorded ?Confirmed multivitamin with iron-mineral 1 tab PO DAILY 10/20/22 10/20/22 Previous Rx's ?Medication ?Instructions ?Recorded ibuprofen 600 mg tablet 600 mg PO Q6H PRN pain #30 tabs 10/20/22 oxycodone-acetaminophen 5 mg-325 1 tab PO Q4-6H PRN pain #15 tabs 10/27/22 mg tablet (Percocet) oxycodone 5 mg tablet 5 mg PO .TID PRN pain #15 tabs 10/30/22 acetaminophen 500 mg tablet 500 mg PO Q6H PRN pain #30 tabs 12/23/23 (Tylenol Extra Strength) ibuprofen 600 mg tablet 600 mg PO Q6H PRN pain #30 tabs 12/23/23 oxycodone 5 mg tablet 5 mg PO Q6H PRN pain #10 tabs 12/23/23 colchicine 0.6 mg capsule 0.6 mg PO BID #14 caps 08/03/24 ibuprofen 400 mg tablet 400 mg PO Q6H PRN pain #14 tabs 08/03/24 acetaminophen 500 mg tablet 500 - 1,000 mg (1 - 2 x 500 mg) PO 12/18/24 (Tylenol Extra Strength) Q8H PRN pain #30 tabs oxycodone 5 mg tablet 5 mg PO Q6H PRN pain #5 tabs 12/18/24 prednisone 20 mg tablet 40 mg (2 x 20 mg) PO DAILY 4 days 12/18/24 #8 tabs Allergies Allergy/AdvReac Type Severity Reaction Status Date / Time No Known Allergies Allergy Verified 12/18/24 10:06 [No Known Allergies*] Review of Systems 2 Review of Systems: Constitutional: No Weight loss, No Fever, No Chills, No Night Sweats, No Fatigue, No Malaise ENT/Mouth: No Hearing loss, No Ear Pain, No Nasal Congestion, No Sinus Pain, No Hoarseness, No sore throat, No Rhinorrhea, No Swallowing Difficulty Eyes: No Eye Pain, No Swelling, No Redness, No Foreign Body, No Discharge, No Vision Changes Cardiovascular: No Chest Pain, No SOB, No Dyspnea on Exertion, No Orthopnea, No Edema, No Palpitations Respiratory: No Cough, No Sputum, No Wheezing, No Smoke Exposure, No Dyspnea Gastrointestinal: No Nausea, No Vomiting, No Diarrhea, No Constipation, No Abdominal pain, No Hematochezia, No Melena Genitourinary: No irregular bleeding, No Dysuria, No Urinary Frequency, No Hematuria, No Urinary Incontinence/retention, No Urgency, No Flank Pain, No Urinary Flow Changes, No Hesitancy Musculoskeletal: No Myalgias, Left ankle joint swelling, Pain to palpation and ambulate Left ankle/foot/1st metatarsal. Skin: No Skin Lesions, No rash Neuro: No Weakness, No Numbness, No Paresthesias, No Loss of Consciousness, No Dizziness, No Headache Psych: No Anxiety/Panic, No Depression, No SI/HI/AH/VH, No Social Issues, Heme/Lymph: No Bruising, No Bleeding,No Lymphadenopathy Endocrine: No Polyuria, No Polydipsia, No Temperature Intolerance ENT: Reports Normal hearing present Neurologic: Reports Normal hearing present [facility] Past Medical History Attestation statement: The following information was validated with the patient. Source: old records reviewed and nursing notes reviewed Medical History Hx of gout Obesity COVID-19 No known health problems Surgical History Hx of umbilical hernia repair History of bilateral inguinal hernia repair Social History Social History Are you a primary patient care representative to a significant other at home: No Do you presently have visiting nurse or other home services: No Alcohol intake: current Alcohol intake frequency: holidays/special occasions only Patient Tobacco Use Status: Never used Tobacco Substance Use Type: Marijuana Physical Exam ED Vital Signs: Vital Signs - 24 hr 12/18/24 10:05 12/18/24 12:43 12/18/24 14:15 Temperature 98 F 98.2 F 98.2 F Pulse Rate 93 74 74 Respiratory Rate 19 16 16 Blood Pressure 128/82 140/77 H 140/77 H Pulse Oximetry 96 97 97 Oxygen Delivery Method Room Air Room Air Room Air BMI result Body Mass Index 37.0 Const General: cooperative, comfortable and no acute distress Orientation/consciousness: patient oriented x3 Limitations: no limitations [facility] Head: Yes normal to inspection, Yes normocephalic and Yes atraumatic Ears: hearing grossly normal bilaterally General nose exam: Normal external nose present Face and sinus: Yes normal facial exam Mouth: Normal oral and palatal mucosa present, oropharynx normal and moist mucous membranes Throat: Yes posterior oropharynx normal Eyes General: appearance normal, both eyes and all related structures Eyelids: Yes eyelids normal Conjunctivae: conjunctivae normal Sclerae: sclerae normal Pupils: Equal, round and reactive pupils present EOM: EOMs intact bilaterally Neck Neck: Yes normal visual inspection, Yes full ROM and Yes no lymphadenopathy Lymphatic: no lymphadenopathy noted Chest Chest palpation & inspection: normal inspection of the chest Resp Effort & Inspection: normal respiratory effort and able to speak in complete sentences GI Inspection: Yes normal to inspection Skin General skin exam: no rashes or lesions noted Trauma: no lacerations or abrasions Wounds: no wounds Neuro General: patient oriented x3 and moves all extremities Cranial nerves: Yes Equal, round and reactive pupils present and Yes Normal hearing present Extrem Other: Left ankle with slight erythema and warmth noted more pronounced over the lateral malleolus. He does have tenderness palpation in this region. Decreased range of motion with Dorsi and plantar flexion as well as medial and lateral movement. No calf tenderness, Achilles tendon is intact. DP/PT pulses are intact. General: Yes normal to inspection Right upper extremity: normal to inspection Left upper extremity: normal to inspection Ankle/foot/toe images: 2 1. warmth, swelling Medications Administered Discontinued Medications Generic Name Dose Route Start Last Admin Trade Name Freq PRN Reason Stop Dose Admin Acetaminophen 975 mg 12/18/24 11:21 12/18/24 11:40 Acetaminophen 325 Mg Tablet PO 12/18/24 11:22 975 mg ONCE ONE Administration Prednisone 40 mg 12/18/24 11:21 12/18/24 11:41 Prednisone 20 Mg Tablet PO 12/18/24 11:22 40 mg ONCE ONE Administration Medical Decision Making Medical Decision Making MDM Narrative: 49 year old male with a past medical history of gout presents to the ED with a chief complaint of left ankle, foot, and 1st metatarsal swelling and pain. Differential diagnosis includes but is not limited to gout flare up, calcium pyrophosphate crystal deposition disease (pseudogout), septic joint, ankle injury, ankle arthritis. An ankle x-ray was performed and revealed arthritis and an old deltoid or medial ankle injury in the past. Due to his history these seem non-contributory to his symptoms today. A CMP was ordered to check liver and kidney functions - levels within normal limits. Glucose was slightly elevated at 128, he was not fasting, this is not a concern for the prednisone today. A CBC was ordered and the WBC is within normal limits, ESR and CR levels are elevated at 21 and 8.77, and uric acid was within normal limits at 5.7 - septic joint is still considered but lower on our differential diagnosis due to the presentation of the patient more likely having a gout flare up due to the increased in alcohol consumption and meat intake. Patient also states this episode seems similar to his gout flare ups in the past. We gave prednisone for inflammation and tylenol for pain in the emergency department. Patient has improved range of motion in the left ankle after administration of prednisone. He also states that his pain was improving since he arrived. Tapping of the left ankle joint was discussed with the patient, letting him know that return precautions are low but still possible if the mobility worsens, he has fevers or chills, and pain worsens. Patient states he believes that this is gout and he does not want to be tapped at this time. Patient is sent home with instructions to finish his 5 day prednisone course, 5 tablets of oxycodone for severe pain - patient was instructed on the risks of this medication such as; addictive qualities, sedation, and constipating effects. Patient was also advised to use tylenol for break through pain or mild to moderate pain. Patient is instructed to follow up with his PCP to discuss jail preventable gout treatments. He is also given instructions on a low purine diet to avoid gout flare ups in the future. Differential Diagnosis Differential diagnosis includes but is not limited to gout flare up, calcium pyrophosphate crystal deposition disease (pseudogout), septic joint, ankle injury, ankle arthritis. Lab Data [facility] Lab Attestation statement: I reviewed the patient's lab results. See [facility] 12/18/24 11:22 12/18/24 11:21 Labs: Lab Results 12/18/24 12/18/24 Range/Units 11:21 11:22 WBC 10.2 (4.8-10.8) X10*3/uL RBC 5.07 (4.60-5.80) X10*6/uL Hgb 16.4 (14.0-18.0) g/dl Hct 46.3 (42.0-52.0) % MCV 91.3 (80.0-98.0) fL MCH 32.3 (27.0-33.0) pg MCHC 35.4 (31.0-36.0) g/dl RDW 12.9 (11.0-16.0) % Plt Count 195 (160-400) X10*3/uL MPV 10.4 (9.4-12.4) fL Immature Gran % (Auto) 0.5 H (0.0-0.4) % Neut % (Auto) 70.8 (45-73) % Lymph % (Auto) 17.7 L (20-40) % Ward % (Auto) 9.6 (2-11) % Eos % (Auto) 1.1 (0-4) % Baso % (Auto) 0.3 (0-2) % Lymph # (Auto) 1.8 (1.2-4.9) X10*3/uL Ward # (Auto) 1.0 (0.1-1.2) X10*3/uL Eos # (Auto) 0.1 (0.0-0.4) X10*3/uL Baso # (Auto) 0.0 (0.0-0.2) X10*3/uL Abs Immat Gran (auto) 0.05 H (0.00-0.03) X10*3/uL Absolute Neuts (auto) 7.2 (2.0-8.3) x10*3/uL Absolute Nucleated RBC 0.000 (0.0-0.012) X10*3/uL Nucleated RBC % (auto) 0.0 (0.0-0.2) /100WBC ESR 21 H (0-15) MM/HR Sodium 141 (135-145) mmol/L Potassium 3.9 (3.3-5.1) mmol/L Chloride 106 (96-108) mmol/L Carbon Dioxide 25 (22-29) mmol/L Anion Gap 14 (12-20) BUN 11 (9-16) mg/dL Creatinine 0.80 (0.5-1.4) mg/dL Estim Creat Clear Calc 145.7 Estimated GFR > 60 Random Glucose 128 H (60-115) mg/dL Uric Acid 5.7 (3.4-7.0) mg/dL Calcium 9.2 D (8.4-10.2) mg/dL Total Bilirubin 1.3 H (0.0-1.0) mg/dL Direct Bilirubin 0.4 (0.0-0.5) mg/dL AST 19 (5-37) U/L ALT 30 (0-40) U/L Alkaline Phosphatase 56 (39-117) U/L C-Reactive Protein 8.77 H (< or = 0.50) mg/dL Total Protein 6.8 (6.5-8.0) g/dL Albumin 3.9 (3.5-5.0) g/dL Independent Interpretation I performed an independent interpretation of an: Plain X-Ray Interpretation: I reviewed the x-ray and agree with the radiology report. Radiology Impression Discussion of test interpretation with radiology: I have reviewed the radiologist's reading. Radiologist Impression: 3 view left ankle Comparison: None Findings: Small focus of ossification distal to the medial malleolus which may represent an old avulsion or deltoid ligament injury. No acute fracture. 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 No definite gouty tophi or erosions to suggest crystalline arthropathy. Plantar calcaneal enthesophyte. No tibiotalar joint effusion. IMPRESSION: 1. 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 2. Old medial malleolar avulsion or deltoid ligament injury. This document has been electronically signed by: Drew Franklin DO on 12/18/2024 11:58:26 Tests considered The following testing was considered but not selected: Left ankle joint tap Discharge Plan Discharge Clinical Impression: Gout Qualifiers: Gout site: ankle Gout etiology: unspecified cause Chronicity: acute Laterality: left Qualified Code(s): M10.9 - Gout, unspecified Patient Disposition: Home, Self-Care Instructions: Low Purine Diet (ED), Gout (ED) Additional Instructions: You were seen in the emergency department today with concerns for gouty flare- up. This is likely the source of your symptoms however we discussed that this could be the start of an early infection therefore please return if you develop any new or worsening symptoms including but not limited to fevers, chills, worsening range of motion of your ankle joint, or worsening pain. You are prescribed a 5 day course of prednisone, complete course as directed to reduce inflammation. You received your first dose in the emergency room today, resume next dose tomorrow. As discussed, you are prescribed 5 tablets of oxycodone for severe pain. This medication is sedating, and driving is not advised while taking it. We also discussed the addictive qualities, and the intended use for support of extreme pain during your gout flare up. This medication can also be constipating, hydration and fiber are important while taking it, laxatives such as OTC miralax can be used as well. You can also take 500mg tylenol for breakthrough or mild to moderate pain, maximum 3000mg / day. 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 Prescriptions: New prednisone 20 mg tablet 40 mg PO DAILY 4 Days Qty: 8 0RF Rx Instructions: start 12/19 acetaminophen [Tylenol Extra Strength] 500 mg tablet 500 - 1,000 mg PO Q8H PRN (Reason: pain) Qty: 30 0RF oxycodone 5 mg tablet 5 mg PO Q6H PRN (Reason: pain) Qty: 5 0RF Rx Instructions: Partial Fill upon patient request. No Action oxycodone-acetaminophen [Percocet] 5-325 mg tablet 1 tab PO Q4-6H PRN (Reason: pain) Qty: 15 0RF Rx Instructions: Partial Fill upon patient request. ibuprofen 600 mg tablet 600 mg PO Q6H PRN (Reason: pain) Qty: 30 0RF Multi M Vitamin Tablet 1 tab PO DAILY oxycodone 5 mg tablet 5 mg PO .TID PRN (Reason: pain) Qty: 15 0RF Rx Instructions: Partial Fill upon patient request. colchicine 0.6 mg capsule 0.6 mg PO BID Qty: 14 0RF ibuprofen 400 mg tablet 400 mg PO Q6H PRN (Reason: pain) Qty: 14 0RF ibuprofen 600 mg tablet 600 mg PO Q6H PRN (Reason: pain) Qty: 30 0RF acetaminophen [Tylenol Extra Strength] 500 mg tablet 500 mg PO Q6H PRN (Reason: pain) Qty: 30 0RF oxycodone 5 mg tablet 5 mg PO Q6H PRN (Reason: pain) Qty: 10 0RF Rx Instructions: Partial Fill upon patient request. Stand Alone Forms: Work/School Release Interventions: ED Discharge Assessment Last Done: 12/18/24 14:15 Discharge Date/Time: 12/18/24 14:17 Print Language: Ecuadorean
--- NOTE | 2024-12-18 11:19 | PC.NURSE ---
left akle is swollen, red, warm to touch and taught. Pt states Feels just like gout . NKI. has diff bearing weight. extremity elevated
[2024-12-18 11:26] LABS: MANUAL DIFF FLAG NO
[2024-12-18 11:27] LABS: Basophils Percent Auto 0.3 % (0-2); Eosinophils Absolute Auto 0.1 X10*3/uL (0.0-0.4); Eosinophils Percent Auto 1.1 % (0-4); Hematocrit 46.3 % (42.0-52.0); Hemoglobin 16.4 g/dl (14.0-18.0); Imm Gran Abs Auto 0.05 X10*3/uL (0.00-0.03); Imm Gran Pct Auto 0.5 % (0.0-0.4); Lymphocytes Absolute Auto 1.8 X10*3/uL (1.2-4.9); Lymphocytes Percent Auto 17.7 % (20-40); Mean Corpuscular HGB Conc 35.4 g/dl (31.0-36.0); Mean Corpuscular Hemoglobin 32.3 pg (27.0-33.0); Mean Corpuscular Volume 91.3 fL (80.0-98.0); Mean Platelet Volume 10.4 fL (9.4-12.4); Monocytes Percent Auto 9.6 % (2-11); Neutrophils Absolute Auto 7.2 x10*3/uL (2.0-8.3); Neutrophils Percent Auto 70.8 % (45-73); Platelet Count 195 X10*3/uL (160-400); Red Blood Count 5.07 X10*6/uL (4.60-5.80); Red Cell Distribution Width 12.9 % (11.0-16.0); White Blood Count 10.2 X10*3/uL (4.8-10.8)
[2024-12-18] MEDS: Acetaminophen 325 MG TABLET 975 MG PO (11:40)
[2024-12-18] MEDS: predniSONE 20 MG TABLET 40 MG PO (11:41)
[2024-12-18 11:47] LABS: Alanine Aminotransferase 30 U/L (0-40); Albumin Level 3.9 g/dL (3.5-5.0); Anion Gap 14 (12-20); Aspartate Amino Transferase 19 U/L (5-37); Bilirubin Direct 0.4 mg/dL (0.0-0.5); Bilirubin Total 1.3 mg/dL (0.0-1.0); Blood Urea Nitrogen 11 mg/dL (9-16); C Reactive Protein 8.77 mg/dL (< or = 0.50); Calcium 9.2 mg/dL (8.4-10.2); Carbon Dioxide 25 mmol/L (22-29); Chloride 106 mmol/L (96-108); Creatinine Clr Calc Pharmacy 145.7; Estimated Glomerular Filt Rate > 60; Glucose Random 128 mg/dL (60-115); Potassium 3.9 mmol/L (3.3-5.1); Sodium 141 mmol/L (135-145); Total Protein 6.8 g/dL (6.5-8.0); Uric Acid 5.7 mg/dL (3.4-7.0)
[2024-12-18 11:48] LABS: Alkaline Phosphatase 56 U/L (39-117)
[2024-12-18 12:13] LABS: Erythrocyte Sedimentation Rate 21 MM/HR (0-15)
[2024-12-18 12:43] VITALS: BP 140/77; PULSE 74; RESP 16; TEMP 36.8; O2SAT 97
[2024-12-18 14:15] VITALS: BP 140/77; PULSE 74; RESP 16; TEMP 36.8; O2SAT 97
== END 2024-12-18 14:17 | disposition home or self-care (01) ==
PROVIDERS: Physician Assistant Medical; Emergency Provider Emergency Medicine
DX: M10.9 Gout, unspecified (principal); M25.572 Pain in left ankle and joints of left foot
CPT/HCPCS: 36415; 73610; 80048; 80076; 84550; 85025; 85652; 86140; 99283; 99284

== ENCOUNTER → 2024-12-18 11:11 | Outpatient (BNV) | payer BC, SELFPAY | PROVIDERS: Emergency Provider Emergency Medicine; Visit Provider Radiology Diagnostic Radiology | DX: M25.572 Pain in left ankle and joints of left foot (principal) | CPT/HCPCS: 73610 ==

== ENCOUNTER 2024-12-22 07:42 | Emergency (ER) | payer SELFPAY ==
[2024-12-22 07:48] VITALS: BP 119/76; PULSE 89; RESP 20; TEMP 36.1; O2SAT 96; BMI 37.3
[2024-12-22 08:00] VITALS: BP 119/70; PULSE 83; RESP 16; O2SAT 96
--- NOTE | 2024-12-22 08:08 | ED.GENADULT ---
HPI - General Adult General Chief complaint: General Medical Stated complaint: L Foot Gout Time Seen by Provider: 12/22/24 07:55 History of Present Illness HPI narrative: Patient is a 49-year-old presents today with having pain to the left foot. History of gout. Patient was given oxycodone. Finish the last dose last night. No notice patient has constipation. Patient has been passing gas. Feels somewhat bloated. Try some Mag citrate only with moderate relief. The pain in the ankle has been improving. There is no fever no chills. The pain is exactly the same as previous bouts of gout. In the same joint. Patient admits to eating some meat over the weekend. Related Data Home Medications ?Medication ?Instructions ?Recorded ?Confirmed multivitamin with iron-mineral 1 tab PO DAILY 10/20/22 10/20/22 Previous Rx's ?Medication ?Instructions ?Recorded ibuprofen 600 mg tablet 600 mg PO Q6H PRN pain #30 tabs 10/20/22 oxycodone-acetaminophen 5 mg-325 1 tab PO Q4-6H PRN pain #15 tabs 10/27/22 mg tablet (Percocet) oxycodone 5 mg tablet 5 mg PO .TID PRN pain #15 tabs 10/30/22 acetaminophen 500 mg tablet 500 mg PO Q6H PRN pain #30 tabs 12/23/23 (Tylenol Extra Strength) ibuprofen 600 mg tablet 600 mg PO Q6H PRN pain #30 tabs 12/23/23 oxycodone 5 mg tablet 5 mg PO Q6H PRN pain #10 tabs 12/23/23 colchicine 0.6 mg capsule 0.6 mg PO BID #14 caps 08/03/24 ibuprofen 400 mg tablet 400 mg PO Q6H PRN pain #14 tabs 08/03/24 acetaminophen 500 mg tablet 500 - 1,000 mg (1 - 2 x 500 mg) PO 12/18/24 (Tylenol Extra Strength) Q8H PRN pain #30 tabs oxycodone 5 mg tablet 5 mg PO Q6H PRN pain #5 tabs 12/18/24 prednisone 20 mg tablet 40 mg (2 x 20 mg) PO DAILY 4 days 12/18/24 #8 tabs polyethylene glycol 3350 17 17 g PO DAILY #238 grams 12/22/24 gram/dose oral powder (Miralax) Allergies Allergy/AdvReac Type Severity Reaction Status Date / Time No Known Allergies Allergy Verified 12/22/24 07:52 [No Known Allergies*] Review of Systems Review of Systems: Positive pain to the left ankle Yes all other systems are reviewed and are negative [facility] Past Medical History Medical History Hx of gout Obesity COVID-19 No known health problems Surgical History Hx of umbilical hernia repair History of bilateral inguinal hernia repair Social History Social History Are you a primary client care representative to a significant other at home: No Do you presently have visiting nurse or other home services: No Alcohol intake: current Alcohol intake frequency: holidays/special occasions only Patient Tobacco Use Status: Never used Tobacco Substance Use Type: Marijuana Do you have a plan to hurt others: No Plan Physical Exam ED Vital Signs: Vital Signs - 24 hr 12/22/24 07:48 12/22/24 08:00 Temperature 96.9 F Pulse Rate 89 83 Respiratory Rate 20 16 Blood Pressure 119/76 119/70 Pulse Oximetry 96 96 Oxygen Delivery Method Room Air Room Air BMI result Body Mass Index 37.3 Appearance: Alert. Oriented X3. No acute distress. Eyes: Pupils equal, round and reactive to light. ENT: Pharynx normal. Neck: Normal inspection. Neck supple. No lymph nodes noted. No crepitus CVS: Normal heart rate and rhythm. Pulses normal. Normal S1 and S2 Respiratory: No respiratory distress. Breath sounds normal. No Wheezing. No rales Abdomen: Soft and nontender. No rigidity. No distention. good BS x4 Skin: Skin warm and dry. Normal skin color. Normal skin turgor. Extremities: No lower extremity edema. Neurovascular intact to all extremities. Positive minimal swelling to the left ankle. Distal pulses intact. Distal sensation intact. Neuro: Oriented X 3. No motor deficit. No sensory deficit. Moving all extermities. No slurred speech Medical Decision Making Medical Decision Making MDM Narrative: Positive gout patient has been taking oxycodone. Now noticing some constipation. Tried Mag citrate with moderate relief. Will give some MiraLax. Have patient follow-up on an outpatient basis. The ankle pain is very typical of the migraine. The symptom has been improving. Patient is finishing up his steroid. Asked patient to take Tylenol for the pain. Ice elevate. If he needs to take ibuprofen he should take it with food and be very careful. Risk of GI bleed explained. Differential Diagnosis Differential Diagnoses: The differential diagnosis associated with the presentation includes Gout, infected joint, constipation secondary to narcotic use Admission/Observation Consideration of admission/observation: Escalation of care including admission/observation considered Chronic Conditions Gout Discharge Plan Discharge Clinical Impression: Gout, Constipation Patient Disposition: Home, Self-Care Instructions: Constipation (DC), Gout (ED) Prescriptions: New polyethylene glycol 3350 [Miralax] 17 gram/dose powder 17 g PO DAILY Qty: 238 0RF No Action oxycodone-acetaminophen [Percocet] 5-325 mg tablet 1 tab PO Q4-6H PRN (Reason: pain) Qty: 15 0RF Rx Instructions: Partial Fill upon patient request. ibuprofen 600 mg tablet 600 mg PO Q6H PRN (Reason: pain) Qty: 30 0RF Multi M Vitamin Tablet 1 tab PO DAILY oxycodone 5 mg tablet 5 mg PO .TID PRN (Reason: pain) Qty: 15 0RF Rx Instructions: Partial Fill upon patient request. colchicine 0.6 mg capsule 0.6 mg PO BID Qty: 14 0RF ibuprofen 400 mg tablet 400 mg PO Q6H PRN (Reason: pain) Qty: 14 0RF ibuprofen 600 mg tablet 600 mg PO Q6H PRN (Reason: pain) Qty: 30 0RF acetaminophen [Tylenol Extra Strength] 500 mg tablet 500 mg PO Q6H PRN (Reason: pain) Qty: 30 0RF oxycodone 5 mg tablet 5 mg PO Q6H PRN (Reason: pain) Qty: 10 0RF Rx Instructions: Partial Fill upon patient request. prednisone 20 mg tablet 40 mg PO DAILY 4 Days Qty: 8 0RF Rx Instructions: start 12/19 acetaminophen [Tylenol Extra Strength] 500 mg tablet 500 - 1,000 mg PO Q8H PRN (Reason: pain) Qty: 30 0RF oxycodone 5 mg tablet 5 mg PO Q6H PRN (Reason: pain) Qty: 5 0RF Rx Instructions: Partial Fill upon patient request. Referrals: [facility] [Primary Care Provider] - 12/25/24 Stand Alone Forms: Work/School Release Print Language: Monegasque
--- OUTSIDE RECORDS SUMMARY | 2024-12-22 08:22 | XMS_ITS | Encounter Summary ---
Author Organization [employer] Address [address] [facility] [address] [place] [address] Care Team Providers Care Collections Clerk Name Role Phone Chyna Whelan DO Primary Care Provider + [phone] Reason for Visit * Reason Onset Date Comments Nurse Triage 12/19/2024 ER Follow-up 12/19/2024 Encounter Details Date Type Department Care Team ([facility] st Contact Info) Description 12/19/2024 Telephone [facility] MEDICINE [address] [place] [address] Chyna Whelan DO [address] [place] [address] Nurse Triage; ER Follow-up Social History Tobacco Use Types Packs/Day Years Used Date Smoking Tobacco: Never Passive Smoke Exposure: Never Smokeless Tobacco: Never Alcohol Use Standard Drinks/Week Comments Never 0 [...] encounter Miscellaneous Notes * Telephone Encounter - Anum Hyde RN - 12/19/2024 1:58 PM EDT called pt to triage, spoke to pt. pt states seen ER at [facility] yesterday, for left foot and ankle pain,diagnosed with gout. pt put on Prednisone and Ibuprofen and given 5 Oxycodone as needed for severe pain. pt states persistent pain left ankle and foot, and requesting follow up appt with PCP. given appt Wednesday with PCP at 11:45 for exam and follow up as needed. pt understands and agrees with plan. Unable to verify insurance, pt aware and will bring new info to the scheduled appt. ER notes are already scanned into chart for review. Protocol Used: Ankle Pain (Adult) Protocol-Based Disposition: See in Office or Video Visit within 3 Days Video visit offer not recorded Positive Triage Question: * Patient wants to be seen * All higher-acuity triage questions were negative Care Advice Discussed: * Reassurance and Education - Ankle Pain * Pain Medicines * Pain Medicines - Extra Notes and Warnings * Reasons To Call Back - Moderate pain (such as limping) lasts over 3 days - Mild pain lasts over 7 days - You become worse * Telephone Encounter - Ramona Mix - 12/19/2024 1:26 PM EDT Patient calling to report ED visit on : Date: 12/18 Hospital: [facility] Seen for: Gout Left Ankle Symptomatic Yes *if yes message should go to Triage Patient advised will forward to team nurse for follow up [phone] documented in this encounter Plan of Treatment Not on file documented as of this encounter Visit Diagnoses Not on filedocumented in this encounter Additional Health Concerns Assessment Noted Time PHQ-9 Depression Total Score: 0 02/27/20 23 2:10 PM EDT documented as of this encounter Care Teams Collections Clerk Relationship Specialty Start Date End Date Chyna Whelan DO [address] [place] [address] PCP - General Family Medicine 12/20/20 documented as of this encounter
[2024-12-22 10:00] VITALS: BP 113/78; PULSE 73; RESP 16; O2SAT 96
[2024-12-22 11:07] VITALS: BP 113/78; PULSE 73; RESP 16; TEMP 36.7; O2SAT 96
== END 2024-12-22 11:12 | disposition home or self-care (01) ==
PROVIDERS: Emergency Provider Emergency Medicine Emergency Medical Services; PCP Family Medicine
DX: M10.9 Gout, unspecified (principal); K59.00 Constipation, unspecified; M79.672 Pain in left foot
CPT/HCPCS: 99283; 99284

== ENCOUNTER 2025-02-21 09:41 | Outpatient (REF) | payer MEDICAID, SELFPAY ==
--- OUTSIDE RECORDS SUMMARY | 2021-11-23 14:05 | XMS_ITS | Encounter Summary ---
Author Organization [facility] Address [address] [facility] [address] [place] [id number] Phone Care Team Providers Care [place] Actor Name Role Phone Unknown, Unknown Primary Care Provider Brit hawkins Encounter Details Date Type Department Care Team ([facility] st Contact Info) Description 11/23/2021 2:05 PM EDT Hospital Encounter [facility] [address] [place] [id number] Gorge Arana PA [address] [place] [phone] [email or web address] Social History Tobacco Use Types Packs/Day Years Used Date Smoking Tobacco: Former Smokeless Tobacco: Never Comments:10 years ago Alcohol Use Standard Drinks/Week Comments Yes 0 (1 standard drink = 0.6 oz pur e alcohol) Education Answer Date Recorded Are you interested in more education? Not on esperanza e 11/20/2022 Are you concerned about learning? Not on file 11/20/2022 No 11/20/2022 No 11/20/2022 Digital Access Answer Date Recorded No 12/18/2022 No 12/18/2022 No 12/18/2022 Reliable internet access at home? Not on file 12/18/2022 Device with a working camera? Not on file Intimate Partner Violence Answer Date R ecorded Are you denied basic needs s uch as food, clothing, or medical care? No 08/12/2023 In the past 12 months have y ou been in a relationship with a person who hurts, threatens, or tries to control you? No 08/12/2023 Are you denied basic needs s uch as food, clothing, or medical care? No 08/12/2023 In the past 12 months have y ou been in a relationship with a person who hurts, threatens, or tries to control you? No 08/12/2023 Sex and Gender Information Value Date Recorded Sex Assigned at Male 02/18/2022 4:20 PM EDT Legal Sex Male 9:30 PM EDT Gender Identity Male 02/18/2022 4:20 PM EDT Sexual Orientation Straight 02/18/2022 4: 20 PM EDT documented as of this encounter Functional Status * Calculated C-SSRS Risk Score (Lifetime/Recent) Answer Date of Assessment Author No Risk Indicated 08/12/2023 10:29 AM Nevaeh Chávez * [place] Suicide Severity Rating Scale (Screener/Recent Self-Report) Question Answer Date of Assessment Author 1. Wish to be (Past 1 Month) No 024 10:29 AM Nevaeh Chávez 2. Non-Specific Active Suici nelida Thoughts (Past 1 Month) No 08/12/2023 10:29 AM Shiraz Chávez 6. Suicidal Behavior (Lifetime) No 10:29 AM Nevaeh Chávez documented as of this encounter Plan of Treatment Not on file documented as of this encounter Procedures Procedure Name Priority Date/Time Associated Diagnosis Comments XR ANKLE 3 OR MORE VIEWS (RIGHT) Urgent/patient waiting 11/23/2021 2:22 PM EDT Sprain of right ankle, unspecified ligament, initial encounter documented in this encounter Results * XR ANKLE 3 OR MORE VIEWS (RIGHT) (11/23/2021 2:22 PM EDT) Anatomical Region Laterality Modality Ankle Right Computed Radiogr aphy 11/23/2021 2:33 PM EDT Impressions 11/23/2021 2:54 PM EDT No fracture or dislocation. ATTESTATION: I, Veronica Padilla as teaching physician, have reviewed the images for this case and if necessary edited the report originally created by Jessee Guevara. Narrative 11/23/2021 2:54 PM EDT XR ANKLE 3 OR MORE VIEWS (RIGHT) COMPARISON: None. FINDINGS: No fracture. Normal alignment. Symmetric ankle mortise. Normal joint spaces. Degenerative changes of the anterior tibiotalar joint. Small calcaneal spur. Soft tissue swelling around the ankle. Procedure Note Veronica Padilla MD - 11/23/2021 XR ANKLE 3 OR MORE VIEWS (RIGHT) COMPARISON: None. FINDINGS: No fracture. Normal alignment. Symmetric ankle mortise. Normal jointspaces. Degenerative changes of the anterior tibiotalar joint. Smallcalcaneal spur. Soft tissue swelling around the ankle. IMPRESSION: No fracture or dislocation. ATTESTATION: I, Veronica Padilla as teaching physician, have reviewed theimages for this case and if necessary edited the report originally createdby Jessee Nielson. Gorge SHABAZZ IMG XR LOWER EXTREMITY Rosa l Result documented in this encounter Visit Diagnoses Not on filedocumented in this encounter Care Teams [place] Actor Relationship Specialty Start Date End Date Unknown, Unknown, PCP - General 11/23/21 10/15/22 documented as of this encounter Additional Source Comments The information contained in this document represents components of the legal health record. It is not the complete legal health record.[facility]
--- OUTSIDE RECORDS SUMMARY | 2025-02-21 10:16 | XMS_ITS | Encounter Summary ---
Author Organization [employer] Address [address] [facility] [address] [place] [address] Care Team Providers Care Parking Meter Collector Name Role Phone Chyna Whelan DO Primary Care Provider [phone] Reason for Visit * Reason Onset Date Comments Appointment Request 02/09/2023 Encounter Details Date Type Department Care Team ([facility] st Contact Info) Description 02/09/2023 Telephone [facility] MEDICINE [address] [place] [address] Chyna Whelan DO [address] [place] [address] Appointment Request Social History Tobacco Use Types [...] book PE pt need it for work. 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 PCP DR. Whelan documented in this encounter Plan of Treatment Not on file documented as of this encounter Visit Diagnoses Not on filedocumented in this encounter Care Teams Parking Meter Collector Relationship Specialty Start Date End Date Chyna Whelan DO [address] [place] [address] PCP - General Family Medicine 12/20/20 documented as of this encounter
[2025-02-21 11:29] LABS: MANUAL DIFF FLAG NO
[2025-02-21 11:40] LABS: Hematocrit 50.4 % (42.0-52.0); Hemoglobin 17.3 g/dl (14.0-18.0); Imm Gran Abs Auto 0.04 X10*3/uL (0.00-0.03); Imm Gran Pct Auto 0.5 % (0.0-0.4); Lymphocytes Absolute Auto 2.2 X10*3/uL (1.2-4.9); Mean Corpuscular HGB Conc 34.3 g/dl (31.0-36.0); Mean Corpuscular Hemoglobin 32.2 pg (27.0-33.0); Mean Corpuscular Volume 93.7 fL (80.0-98.0); NRBC Abs Auto 0.000 X10*3/uL (0.0-0.012); NRBC Pct Auto 0.0 /100WBC (0.0-0.2); Platelet Count 220 X10*3/uL (160-400); Red Blood Count 5.38 X10*6/uL (4.60-5.80); White Blood Count 7.4 X10*3/uL (4.8-10.8)
[2025-02-21 12:15] LABS: HIV Num 1 0.07 S/CO (0.00-0.99); ~HepC Num1 0.09 S/CO (0.00-0.79); ~Hepatitis C Antibody Nonreactive (Nonreactive)
[2025-02-21 12:27] LABS: Alanine Aminotransferase 65 U/L (0-40); Albumin Level 4.2 g/dL (3.5-5.0); Alkaline Phosphatase 66 U/L (39-117); Anion Gap 12 (12-20); Aspartate Amino Transferase 41 U/L (5-37); Blood Urea Nitrogen 13 mg/dL (9-16); Calcium 9.1 mg/dL (8.4-10.2); Carbon Dioxide 25 mmol/L (22-29); Chloride 107 mmol/L (96-108); Cholesterol 193 mg/dL (<200); Estimated Glomerular Filt Rate > 60; HDL Cholesterol 57 mg/dL (>40); Potassium 3.7 mmol/L (3.3-5.1); Sodium 140 mmol/L (135-145); Total Protein 7.0 g/dL (6.5-8.0); Triglycerides 150 mg/dL (<150)
[2025-02-21 13:05] LABS: Hemoglobin A1C 189.4889 umol/L; Total Hemoglobin (HGBA1C) 4830.1348 umol/L
== END 2025-02-21 09:42 | disposition home or self-care (01) ==
LOC: HO.HHCL 09:41
PROVIDERS: PCP Internal Medicine; Visit Provider Internal Medicine
DX: Z00.00 Encounter for general adult medical examination without abnormal findings (principal); Z11.59 Encounter for screening for other viral diseases; Z11.4 Encounter for screening for human immunodeficiency virus [HIV]
CPT/HCPCS: 36415; 80053; 80061; 82306; 83036; 84443; 85025; 86803; 87389

== ENCOUNTER 2025-03-22 13:27 | Outpatient (AMB) | payer MEDICAID, SELFPAY ==
--- OUTSIDE RECORDS SUMMARY | 2021-11-23 14:05 | XMS_ITS | Encounter Summary ---
Author Organization [facility] Address [address] [facility] [address] [place] [phone] Phone Care Team Providers Care Vice President Of Academic Affairs Name Role Phone Unknown, Unknown Primary Care Provider Brit hawkins Encounter Details Date Type Department Care Team ([facility] st Contact Info) Description 11/23/2021 2:05 PM EDT Hospital Encounter [facility] [address] [place] [phone] Gorge Arana PA [address] [place] [phone] [email or web address] Social History Tobacco Use Types Packs/Day [...] Indicated 08/12/2023 10:29 AM Nevaeh Chávez * [place] Suicide Severity Rating Scale (Screener/Recent Self-Report) Question [...] on filedocumented in this encounter Care Teams Vice President Of Academic Affairs Relationship Specialty Start Date End Date Unknown, Unknown, PCP - General 11/23/21 10/15/22 documented as of this encounter Additional Source Comments The information contained in this document represents components of the legal health record. It is not the complete legal health record.[facility]
--- NOTE | 2025-03-22 13:29 | A.OFFVIS_ITS ---
Vital Signs 03/22/25 13:37 Height 5 ft 11 in Weight 267 lb BMI 37.2 Intake Visit Reasons: Newpt-Injury of right bicep tendon Intake Note: Alok is a 50 year old 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 man who presents as a new patient for an evaluation of right bicep pain. Patient reports pain that is located in his his bicep area. He is unable to lift his arm up due to lack of strength. This injury occurred over 6 months ago and he received no medical treatment. Patient was seen at [facility] ER on 12/23/23 for right shoulder/bicep pain status post softball injury. Patient reports initially he felt a pop while he was lifting at work. He states that he recently played softball when he pitched the ball he felt a shocking sensation in his bicep. At times he has a tinging sensation in his sheikh d. No other treatments. Allergies No Known Allergies (No Known Allergies*) Allergy (Verified 03/22/25 14:01) HPI HPI Newpt-Injury of right bicep tendon: Details: 50-year-old gentleman presents to the office today for an injury he sustained to his right shoulder approximately 6 months ago. States he was lifting something heavy and he felt a strain in his shoulder and then afterwards he recalls doing fast pitch and softball and feeling a pull in his right shoulder and then an abnormality along the biceps region. Since the incident he has had significant weakness with trying to lift objects along with some associated pain along the shoulder. No treatment to date. 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 He can flex and extend the elbow. He has good range of motion of the shoulder with weakness. Assessment & Plan Assessment & Plan (1) Rupture of right proximal biceps tendon: Code(s): S46.211A - Strain of muscle, fascia and tendon of other parts of biceps, right arm, initial encounter Category: Medical Plan: I explained to the patient the extent of his injury and how this is treated conservatively with physical therapy to regain his strength. He should gradually increase activities as symptoms allow. For work he will perform no lifting pushing pulling or carrying greater than 20 lb for the next 6 weeks and then he can resume normal duty. If there is any questions or concerns going forward he can contact our office otherwise follow up as needed. Orders: Orders PT Evaluation and Treatment Today S46.211A - Strain of muscle, fascia and tendon of other parts of biceps, right arm, initial encounter Coding Level of Care Code New Pt Level 3 (35788) Complex EM visit Add On G2211 Diagnoses Rupture of right proximal biceps tendon S46.211A
[2025-03-22 13:37] VITALS: BMI 37.2
--- OUTSIDE RECORDS SUMMARY | 2025-03-22 14:09 | XMS_ITS | Clinical Summary ---
Author Organization [facility] Address [address] [facility] [address] [place] [phone] Phone Care Team Providers Care Oceanic Sciences Professor Name Role Phone Pcp, Unknown Primary Care Provider Unavailabl e Allergies No known active allergies Medications naproxen (NAPROSYN) 500 MG tablet Take 1 tablet (500 mg total) by mouth 2 (two) times a day with meals for 15 days. 30 tablet 2 Active cyclobenzaprine (FLEXERIL) 5 MG tablet 5-10 mg every 6-8 hours as needed for skeletal muscle relaxation/muscl e spasm 20 tablet 2 Active predniSONE (DELTASONE) 20 MG tablet Take 1 tablet (20 mg total) by mouth daily with breakfast. 7 tablet 3 Active Additional Information Patient not taking.Reported on 08/12/2023 Active Problems No known active problems Social History Tobacco Use Types Packs/Day Years [...] Orientation Straight 02/18/2022 4: 20 PM EDT Last Filed Vital Signs Vital Sign Reading Time Taken Comments Blood Pressure 139/91 08/12/2023 10:26 AM EST Pulse 86 08/12/2023 10:26 AM EST Temperature 36.5 C (97.7 F) 08/12/2023 10:26 AM EST Respiratory Rate 18 08/12/2023 10:26 AM EST Oxygen Saturation 97% 08/12/2023 10:26 AM EST Inhaled Oxygen Concentration - - Weight 120.2 kg (265 lb) 08/12/2023 10:26 AM EST Height 180.3 cm (5' 11 ) 08/12/2023 10:26 AM EST Body Mass Index 36.96 08/12/2023 10:26 AM EST Plan of Treatment Health Maintenance Due Date Last Done Comments LIPID PANEL 1974 DEPRESSION SCREENING 1986 SMOKING Hx and SMOKELESS TOB ACCO SCREENING 1987 HEPATITIS C SCREENING 02/02/1992 HIV ONE-TIME SCREENING (18-6 5 YEARS) 02/02/1992 SCREENING FOR DIABETES 2009 COLOGUARD 2019 COLONOSCOPY 2019 COLORECTAL CANCER SCREENING 2019 FIT TEST 2019 FOBT 2019 SIGMOIDOSCOPY 2019 VIRTUAL COLONOSCOPY 2019 PNEUMOCOCCAL VACCINES (50+ y ears) (1 of 1 - PCV) 02/02/2024 ZOSTER VACCINES (1 of 2) 02/02/2024 COVID-19 VACCINE (1 - 4-2 5 season) 2024 Adult Td,Tdap Booster 12/19/2024 12/19/2014 INFLUENZA VACCINE (#1) 2025 HEPATITIS A VACCINES Aged Out No long er eligible based on patient's age to complete this topic HIB VACCINES Aged Out No longer eligi ble based on patient's age to complete this topic MENINGOCOCCAL VACCINES (ACWY) Aged Out No longer eligible based on patient's age to complete this topic MENINGOCOCCAL VACCINES (B) Aged Out N o longer eligible based on patient's age to complete this topic Medical Devices Not on file Care Teams Oceanic Sciences Professor Relationship Specialty Start Date End Date Pcp, Unknown PCP - General 10/16/22 Additional Source Comments The information contained in this document represents components of the legal health record. It is not the complete legal health record.[facility]
--- OUTSIDE RECORDS SUMMARY | 2025-03-22 14:09 | XMS_ITS | Clinical Summary ---
Author Organization [employer] Address [address] [facility] 7t [place] [address] Care Team Providers Care Claim Administrator Name Role Phone Chyna Whelan DO Primary Care Provider +[phone] Allergies No known active allergies Medications traMADol [...] Active Problems Problem Noted Date Diagnosed Date Injury of tendon of biceps 12/26/2024 Assessment & Plan (12/26/2024 11:44 AM EDT): Referral to orthopedics on today Chronic pain of left ankle 12/26/2024 Assessment & Plan (12/26/2024 11:44 AM EDT): Referral to orthopedics on today I prescribed for him ibuprofen to be taken as needed with full stomach Colon cancer screening 12/26/2024 Healthcare maintenance 12/26/2024 Assessment & Plan (12/26/2024 11:44 AM EDT): Blood work ordered patient will be contacted with results Class 2 obesity due to exces s [...] Eye exam: referral placed Dental home: Advised [facility] dental Skin tag 02/26/2023 Assessment & Plan (02/26/2023 3:50 PM EDT): Reports multiple skin tags on chest and in thigh area. Would like a referral to derm to have them removed. Acute otitis media 02/26/2023 Assessment & Plan (02/26/2023 3:49 PM EDT): It seems that the infection may have traveled to the TM. Giving Augmentin. Patient understands to finish cycle. RTC PRN if symptoms worsen or fail to improve. Encounters Date Type Department Care Team Description 02/23/2025 Results Follow-Up [facility] MEDICINE [address] [place] [phone] Yaquelin Gonzalez MD CBC auto differential, Comprehensive Metabolic Panel, Hemoglobin A1c, Additional followed-up results: 5 02/23/2025 Orders Only [facility] MEDICINE [address] [place] [address] Yaquelin Gonzalez MD 01/30/2025 Population Health Risk Score [facility] Department [address] [phone] Provider, Population Health Generic 12/26/2024 10:45 AM EDT Office Visit [facility] MEDICINE [address] [place] [address] Yaquelin Gonzalez MD Healthcare maintenance (Primary Dx); Injury of tendon of biceps; Chronic pain of left ankle; Colon cancer screening 12/26/2024 Travel 12/25/2024 Telephone [facility] MEDICINE [address] [place] [address] Chyna Whelan, Chart Prep 12/25/2024 Telephone [facility] MEDICINE [address] [place] [address] Chyna Whelan DO Nurse Triage from Last 3 Months Immunizations Immunization Administration Dates Next Due Pfizer Covid-19 Vaccine [...] Sign Reading Time Taken Comments Blood Pressure 128/84 12/26/2024 10:40 AM EDT Pulse 80 12/26/2024 10:40 AM EDT Temperature 36.3 C (97.4 F) 12/26/2024 10:40 AM EDT Respiratory Rate 20 12/26/2024 10:40 AM EDT Oxygen Saturation 98% 02/26/2023 2:08 PM EDT Inhaled Oxygen Concentration - - Weight 121 kg (266 lb 2 oz) 12/26/2024 10:40 AM EDT Height 181.6 cm (5' 11.5 ) 12/26/2024 10:40 AM E DT Body Mass Index 36.6 12/26/2024 10:40 AM EDT Plan of Treatment Health Maintenance Due Date Last Done Comments CT Colonography 1974 Colonoscopy 1974 Colorectal Cancer Screening 1974 FIT DNA/Cologuard 1974 FIT 1974 FOBT 1974 Sigmoidoscopy 1974 Disability Screening 1974 Alcohol/Substance Use Screening 1986 Family Planning (PISQ) 1989 Hepatitis B Vaccines (1 of 3 - 19+ 3-dose series) 1993 Pneumococcal Vaccine: 50+ Years (1 of 1 - PCV) 02/02/2024 Zoster Vaccines (1 of 2) 02/02/2024 Depression Screening 02/27/2024 02/26/2023, 02/26/2023 COVID-19 Vaccine (3 - 2023-2 5 season) 2024 09/26/2020, 09/05/2020 SDOH Screening 10/12/2024 10/13/2023 DTaP/Tdap/Td Vaccines (2 - T d or Tdap) 12/19/2024 12/19/2014 Influenza Vaccine (#1) 2025 Tobacco Screening 12/26/2025 12/26/2024 Diabetes: Hemoglobin A1C 02/21/2026 02/21/2025 Lipid Panel 02/21/2030 02/21/2025 RSV Patients and Patients Aged 60 years or older (1 - 1-dose 75+ series) 2049 HIV Screening Completed 02/21/2025 Hepatitis C Screening Completed 02/21/2025 HIB Vaccines Aged Out No longer eligi [...] this topic Meningococcal Vaccine Aged Out No mohna luis eligible based on patient's age to complete this topic RSV under 20 months Aged Out No longe r eligible based on patient's age to complete this topic Rotavirus Vaccines Aged Out No longer eligible based on patient's age to complete this topic Procedures Procedure Name Priority Date/Time Associated Diagnosis Comments TSH W/REFLEX TO FT4 Routine 02/21/2025 9 :48 AM EDT Healthcare maintenance VITAMIN D,25-OH,TOTAL,IA Routine 02/21/2025 9:48 AM EDT Healthcare maintenance LIPID PANEL, STANDARD Routine 02/21/2025 9:48 AM EDT Healthcare maintenance HEPATITIS C AB W/REFL TO HCV RNA, QN, PCR Routine 02/21/2025 9:48 AM EDT Healthcare maintenance HIV 1/2 ANTIGEN/ANTIBODY, FOURTH GENERATION W/RFL Routine 02/21/2025 9:48 AM EDT Healthcare maintenance HEMOGLOBIN A1C Routine 02/21/2025 9:48 AM EDT Healthcare maintenance COMPREHENSIVE METABOLIC PANEL Routine 02/21/2025 9:48 AM EDT Healthcare maintenance CBC WITH AUTO DIFFERENTIAL Routine 02/21/2025 9:48 AM EDT Healthcare maintenance from Last 3 Months Results * Vitamin D, 25-Hydroxy, Total, Immunoassay (02/21/2025 9:48 AM EDT) Vitamin D 25-OH Total 36.8 >30 ng/mL [facility] Comment: Health Based Reference Values*< 20 ng/mL Xjjeoefaz67-94 ng/mL Insufficient> 30 ng/mL Sufficient*Jessica REDDY. N Engl J Med. 2007;357:266-280There is no well-established upper level of normal vitamin Dlevels. Some laboratories use 50 ng/mL as an upper limit ofnormal. However, toxicity is patient-dependent and may occurat any level. Careful correlation with the patient'spresentation is necessary and, if there is concern forvitamin D toxicity, treatment should be consideredirrespective of the serum level.Care must be taken in interpreting Vitamin D results fromdifferent laboratories and methodologies. Published datademonstrated that results from patients undergoinghemodialysis may show a negative bias when tested withvarious automated 25-OH vitamin D assays when compared toLC-MS/MS.When testing samples from patients whose predominant form ofVitamin D is Vitamin D2, such as patients receiving VitaminD2 supplementation, results that are subtherapeutic shouldbe confirmed with another method such as LC-MS/MS. Blood Venous blood specimen / Unknown 02/21/2025 9:48 AM EDT 02/21/2025 11:23 AM EDT us Yaquelin Glass MD LAB BLOOD ORDERABLES Final Result Performing Organization Address [facility]/ZIP Co de Phone Number [facility] [address] [place] [phone] * TSH with Reflex to Free T4 (02/21/2025 9:48 AM EDT) TSH reflex Free T4 1.51 0.32 - 4.0 uIU/mL [facility] Blood Venous blood specimen / Unknown 02/21/2025 9:48 AM EDT 02/21/2025 11:23 AM EDT us Yaquelin Glass MD LAB BLOOD ORDERABLES Final Result Performing Organization Address [facility]/ZIP Co de Phone Number [facility] [address] [place] [phone] * (ABNORMAL) CBC auto differential (02/21/2025 9:48 AM EDT) White Blood Count 7.4 4.8 - 10.8 X10*3/uL [facility] Red Blood Count 5.38 4.60 - 5.80 X10*6/uL [facility] Hemoglobin 17.3 14.0 - 18.0 g/dl [facility] Hematocrit 50.4 42.0 - 52.0 % [facility] Mean Corpuscular Volume 93.7 80.0 - 98.0 fL [facility] Mean Corpuscular Hemoglobin 32.2 27.0 - 33.0 pg [facility] Mean Corpuscular HGB Conc 34.3 31.0 - 36.0 g/dl [facility] Red Cell Distribution Width 13.8 11.0 - 16.0 % [facility] Platelet Count 220 160 - 400 X10*3/uL [facility] Mean Platelet Volume 11.1 9.4 - 12.4 fL [facility] Neutrophils Percent Auto 60.0 45 - 73 % [facility] Imm Gran Pct Auto 0.5(H) 0.0 - 0.4 % [facility] Lymphocytes Percent Auto 29.4 20 - 40 % [facility] Monocytes Percent Auto 7.2 2 - 11 % [facility] Eosinophils Percent Auto 2.2 0 - 4 % [facility] Basophils Percent Auto 0.7 0 - 2 % [facility] NRBC Pct Auto 0.0 0.0 - 0.2 /100WBC [facility] Neutrophils Absolute Auto 4.4 2.0 - 8.3 x10*3/uL [facility] Imm Gran Abs Auto 0.04(H) 0.00 - 0.03 X10*3/uL [facility] Lymphocytes Absolute Auto 2.2 1.2 - 4.9 X10*3/uL [facility] Monocytes Absolute Auto 0.5 0.1 - 1.2 X10*3/uL [facility] Eosinophils Absolute Auto 0.2 0.0 - 0.4 X10*3/uL [facility] Basophils Absolute Auto 0.1 0.0 - 0.2 X10*3/uL [facility] NRBC Abs Auto 0.000 0.0 - 0.012 X10*3/uL [facility] Blood Venous blood specimen / Unknown 02/21/2025 9:48 AM EDT 02/21/2025 11:23 AM EDT us Yaquelin Glass MD LAB BLOOD ORDERABLES Final Result Performing Organization Address [facility]/ZIP Co de Phone Number [facility] [address] [place] [phone] * Hepatitis C Antibody with Reflex to HCV, RNA, Quantitative, Real-Time PCR (02/21/2025 9:48 AM EDT) Hepatitis C Antibody Nonreactive Nonreactive [facility] Comment:Antibodies to HCV no t detected; does not exclude early acuteHCV infection. Blood Venous blood specimen / Unknown 02/21/2025 9:48 AM EDT 02/21/2025 11:23 AM EDT us Yaquelin Glass MD LAB BLOOD ORDERABLES Final Result Performing Organization Address [facility] Co de Phone Number [facility] [address] [place] [phone] * HIV-1/2 Antigen and Antibodies, Fourth Generation, with Reflexes (02/21/2025 9:48 AM EDT) HIV AB/AG Nonreactive Nonreactive [facility] Comment:HIV-1 p24 Ag and/or HIV-1/HIV-2 Ab not detected.A test result that is nonreactive does not exclude thepossibility of exposure to or infection with HIV-1 and/orHIV-2. Nonreactive results in this assay for individualswith prior exposure to HIV-1 and/or HIV-2 may be due toantigen and antibody levels that are below the limit ofdetection of this assay.The Equ[employer] HIV Ag/Ab Combo assay result andsupplemental assay results should be interpreted inconjunction with the patient's clinical presentation,history and other laboratory results. If the results areinconsistent with clinical evidence, additional testing issuggested to confirm the result. Blood Venous blood specimen / Unknown 02/21/2025 9:48 AM EDT 02/21/2025 11:23 AM EDT us Yaquelin Glass MD LAB BLOOD ORDERABLES Final Result Performing Organization Address [facility] Co de Phone Number [facility] [address] [place] [address] [phone] * Hemoglobin A1c (02/21/2025 9:48 AM EDT) Hemoglobin A1c 5.7 <6.0 % [facility] Comment:Hemoglobin A1C Refer ence Range Adults: 4.8 - 6.0 % Non diabetic: < 6.0 % Goal: < 7.0 %Additional Action Suggested: > 8.0 %Note: Hemoglobin A1c results are invalid for patients with abnormal amounts of HbF. Blood transfusions may impact the HbA1c concentration in the patient sample. Estimated Average Glucose 117 mg/dL [facility] Comment:eAG = Estimated ave rage glucose which is %A1C expressed asaverage glucose, using the formula of the L4I-UoyniojRfgrskr Glucose study (ADAG), Diabetes Care, Vol.31,#8,Feb. 2007 Blood Venous blood specimen / Unknown 02/21/2025 9:48 AM EDT 02/21/2025 11:23 AM EDT us Yaquelin Glass MD LAB BLOOD ORDERABLES Final Result Performing Organization Address [facility] Co de Phone Number [facility] [address] [place] [phone] * (ABNORMAL) Lipid Panel, Standard (02/21/2025 9:48 AM EDT) Triglycerides 150(H) <150 mg/dL [facility] Comment:Desirable Triglyceri de: less than 150 mg/dLBorderline High Triglyceride 150-199 mg/dLHigh Triglyceride: 200-499 mg/dLVery High Triglyceride: greater than or equal to 5OO mg/dL Cholesterol 193 <200 mg/dL [facility] Comment:Desirable Cholestero l: less than 200 mg/dLBorderline High Cholesterol: 200-239 mg/dLHigh Cholesterol: greater than 239 mg/dL LDL Cholesterol Calculated 106(H) <100 mg/dL [facility] Comment:Desirable LDL: less than 100 mg/dLNear Optimal/Above Optimal LDL: 110- 129 mg/dLBorderline High LDL: 130-159 mg/dLHigh LDL: 160-189 mg/dLVery High LDL: greater than or equal to 190 mg/dL HDL Cholesterol 57 >40 mg/dL [facility] Comment:Desirable HDL: great er than 40 mg/dL Note: This HDL assay may give artificially low results in patients with liver disease. Blood Venous blood specimen / Unknown 02/21/2025 9:48 AM EDT 02/21/2025 11:23 AM EDT us Yaquelin Glass MD LAB BLOOD ORDERABLES Final Result [facility] [address] [place] [phone] * (ABNORMAL) Comprehensive Metabolic Panel (02/21/2025 9:48 AM EDT) Sodium 140 135 - 145 mmol/L [facility] Potassium 3.7 3.3 - 5.1 mmol/L [facility] Chloride 107 96 - 108 mmol/L [facility] Carbon Dioxide 25 22 - 29 mmol/L [facility] Anion Gap 12 12 - 20 [facility] Urea Nitrogen (BUN) 13 9 - 16 mg/dL [facility] Creatinine, Serum 0.87 0.5 - 1.4 mg/dL [facility] Estimated Glomerular Filt Rate >60 [facility] Comment:Chronic Kidney Disea se: Estimated GFR < 60 mL/min/1.20r4Suxavy Kidney Disease: Estimated GFR < 15 mL/min/1.73m2 Glucose 134(H) 60 - 115 mg/dL [facility] Calcium 9.1 8.4 - 10.2 mg/dL [facility] Bilirubin, Total 1.3(H) 0.0 - 1.0 mg/dL [facility] Aspartate Amino Transferase 41(H) 5 - 37 U/L [facility] Alanine Aminotransferase 65(H) 0 - 40 U/L [facility] Total Protein 7.0 6.5 - 8.0 g/dL [facility] Albumin Level 4.2 3.5 - 5.0 g/dL [facility] Alkaline Phosphatase 66 39 - 117 U/L [facility] Blood Venous blood specimen / Unknown 02/21/2025 9:48 AM EDT 02/21/2025 11:23 AM EDT us Yaquelin Glass MD LAB BLOOD ORDERABLES Final Result [facility] [address] [place] [address] [phone] from Last [address] [place] [address] C3 [employer] FULL Care Teams Claim Administrator Relationship Specialty Start Date End Date Chyna Whelan DO [address] [place] [phone] PCP - General Family Medicine 12/20/20
--- OUTSIDE RECORDS SUMMARY | 2025-03-22 14:09 | XMS_ITS | Encounter Summary ---
Author Organization [employer] Address [address] [facility] 7t [place] [address] Care Team Providers Care Fast Foods Worker Name Role Phone Chyna Whelan DO Primary Care Provider [phone] Reason for Visit * Reason Onset Date Comments Appointment Request 02/09/2023 Encounter Details Date Type Department Care Team ([facility] st Contact Info) Description 02/09/2023 Telephone [facility] MEDICINE [address] [place] [address] Chyna Whelan DO [address] [place] [address] Appointment Request Social History Tobacco Use Types [...] book PE pt need it for work. 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 PCP DR. hWelan documented in this encounter Plan of Treatment Not on file documented as of this encounter Visit Diagnoses Not on filedocumented in this encounter Care Teams Fast Foods Worker Relationship Specialty Start Date End Date Chyna Whelan DO [address] [place] [address] PCP - General Family Medicine 12/20/20 documented as of this encounter
--- OUTSIDE RECORDS SUMMARY | 2025-03-22 14:09 | XMS_ITS | Encounter Summary ---
Author Organization [employer] Address [address] [facility] 7t [place] [address] Care Team Providers Care Rip/Mould Operator Name Role Phone Chyna Whelan DO Primary Care Provider + [phone] Encounter Details Date Type Department Care Team (Late st Contact Info) Description 02/23/2025 Orders Only [facility] MEDICINE [address] [place] [address] Yaquelin Gonzalez MD [address] [place] [address] Social History Tobacco Use Types Packs/Day Years [...] AM EDT documented as of this encounter Plan of Treatment Not on file documented as of this encounter Visit Diagnoses Not on filedocumented in this encounter Additional Health Concerns Assessment Noted Time PHQ-9 Depression Total Score: 0 02/27/20 23 2:10 PM EDT documented as of this encounter Care Teams Rip/Mould Operator Relationship Specialty Start Date End Date Chyna Whelan DO [address] [place] [phone] PCP - General Family Medicine 12/20/20 documented as of this encounter
== END 2025-03-22 13:49 | disposition home or self-care (01) ==
LOC: HO.HOS 13:28
PROVIDERS: PCP Internal Medicine; Visit Provider Physician Assistant
DX: S46.211A Strain of muscle, fascia and tendon of other parts of biceps, right arm, initial encounter (principal)
CPT/HCPCS: 99203

== ENCOUNTER → 2025-03-22 13:27 | Outpatient (BNVA) | payer MEDICAID, SELFPAY | PROVIDERS: PCP Internal Medicine; Visit Provider Physician Assistant | DX: S46.211A Strain of muscle, fascia and tendon of other parts of biceps, right arm, initial encounter (principal); M79.601 Pain in right arm | CPT/HCPCS: 99212 ==

== ENCOUNTER 2025-04-25 16:07 | Outpatient (REF) | payer MEDICAID, SELFPAY ==
--- OUTSIDE RECORDS SUMMARY | 2021-11-23 14:05 | XMS_ITS | Encounter Summary ---
Author Organization [facility] Address [address] [facility] [address] [place] [phone] Phone Care Team Providers Care Lead Shipper Name Role Phone Unknown, Unknown Primary Care Provider Brit hawkins Encounter Details Date Type Department Care Team ([facility] st Contact Info) Description 11/23/2021 2:05 PM EDT Hospital Encounter [facility] [address] [place] [phone] Gorge Arana PA [address] [place] [phone] [email or web address] Social History Tobacco Use Types Packs/Day [...] Indicated 08/12/2023 10:29 AM Nevaeh Chávez * [place] Suicide Severity Rating Scale (Screener/Recent Self-Report) Question [...] on filedocumented in this encounter Care Teams Lead Shipper Relationship Specialty Start Date End Date Unknown, Unknown, PCP - General 11/23/21 10/15/22 documented as of this encounter Additional Source Comments The information contained in this document represents components of the legal health record. It is not the complete legal health record.[facility]
--- NOTE | ~2025-04-25 | XR_ITS ---
EXAMINATION: XR ANKLE, RIGHT CLINICAL INFORMATION: Ankle injury with pain around achillies tendon COMPARISON: 12/05/2024. TECHNIQUE: AP, lateral, and mortise views of the right ankle. FINDINGS: No fracture, dislocation, or suspicious bone lesion. There is normal alignment. The ankle mortise is intact. The talar dome is normal. Os trigonum noted. There are mild to moderate degenerative changes in the ankle joint. There is a mild pes planus. There is a moderate-sized plantar calcaneal spur. No soft tissue abnormalities. XR/XR ankle RT min 3V IMPRESSION: 1. No acute bony or soft tissue abnormalities of the right ankle. 2. Mild to moderate degenerative changes of the ankle joint. 3. Moderate size calcaneal spur. Electronically signed by: Kingsley Bishop MD 04/25/2025 04:31 PM EDT
--- OUTSIDE RECORDS SUMMARY | 2025-04-25 15:15 | XMS_ITS | Encounter Summary ---
Author Organization [employer] Address [address] [place] [address] [address] [place] [address] Care Team Providers Care General Assignment Reporter Name Role Phone Chyna Whelan Primary Care Provider + [phone] Reason for Referral * Consultation (Routine) - Pending Review Specialty Diagnoses / Procedures Referred By Wilfrid anders Referred To Contact Orthopaedic Surgery Diagnoses Acute right ankle pain Panchito Cid FNP [address] [place] [address] Phone: tel: fax: Referral ID Status Reason Start Date Expiration Date Visits Requested Visits Authorized [id number] Pending Review Specialty Services Required 04/25/2025 04/25/2026 1 1 Reason for Visit * Reason Comments sick visit Encounter Details Date Type Department Care Team (Late st Contact Info) Description 04/25/2025 3:15 PM EDT Office Visit [facility] MEDICINE [address] [place] [address] Panchito Cid FNP [address] [place] [address] Acute right ankle pain (Primary Dx) Social History Tobacco Use Types Packs/Day Years [...] AM EDT documented as of this encounter Last Filed Vital Signs Vital Sign Reading Time Taken Comments Blood Pressure 140/89 04/25/2025 3:07 PM EDT Pulse 79 04/25/2025 3:07 PM EDT Temperature 37 C (98.6 F) 04/25/2025 3:07 PM EDT Respiratory Rate 17 04/25/2025 3:07 PM EDT Oxygen Saturation 98% 04/25/2025 3:07 PM EDT Inhaled Oxygen Concentration - - Weight 121 kg (267 lb) 04/25/2025 3:07 PM EDT Height 181.6 cm (5' 11.5 ) 04/25/2025 3:07 PM ED T Body Mass Index 36.72 04/25/2025 3:07 PM EDT documented in this encounter Plan of Treatment Scheduled Referrals Name Type Priority Associated Diagnoses Order Schedule Referral to Orthopaedic Surgery Outpatient Referral Routine Acute right ankle pain Expected: 04/25/2025 (Approximate), Expires: 04/25/2026 documented as of this encounter Procedures Procedure Name Priority Date/Time Associated Diagnosis Comments XR ANKLE 3+ VIEWS RIGHT STAT 04/25/2025 4:20 PM EDT Acute right ankle pain documented in this encounter Results * XR Ankle 3+ Views Right (04/25/2025 4:20 PM EDT) Anatomical Region Laterality Modality Lower Extremities, Ankle Right Radiogr aphic Imaging 04/25/2025 4:20 PM EDT Narrative 04/25/2025 4:34 PM EDT [address] [address] XRay Report Signed Patient: Alok Head MR#: [id number] 92 : 1975 Acct:[id number] Age/Sex: 50 / M ADM Date: 04/25/25 Loc: .HHCX Attending Dr: Panchito Cid NP Ordering Physician: Panchito Cid NP Date of Service: 04/25/25 Procedure(s): XR ankle RT min 3V Accession Number(s): [id number] cc: Panchito Cid NP Reason for Exam: Ankle injury with pain around achillies tendon EXAMINATION: XR ANKLE, RIGHT CLINICAL INFORMATION: Ankle injury with pain around achillies tendon COMPARISON: 12/05/2024. TECHNIQUE: AP, lateral, and mortise views of the right ankle. FINDINGS: No fracture, dislocation, or suspicious bone lesion. There is normal alignment. The ankle mortise is intact. The talar dome is normal. Os trigonum noted. There are mild to moderate degenerative changes in the ankle joint. There is a mild pes planus. There is a moderate-sized plantar calcaneal spur. No soft tissue abnormalities. XR/XR ankle RT min 3V IMPRESSION: 1. No acute bony or soft tissue abnormalities of the right ankle. 2. Mild to moderate degenerative changes of the ankle joint. 3. Moderate size calcaneal spur. Electronically signed by: Kingsley Bishop MD 04/25/2025 04:31 PM EDT Dictated By: Kingsley Bishop MD Signed By: <Electronically signed by Kingsley Bishop MD in OV> 04/25/25 1631 DD/ 1620 TD/TT: 04/25/25 1622 Windows Security Analyst: Procedure Note Donotildainterpreter, Image - 04/25/2025 [facility] [address] [place] [address] XRay Report Signed Patient: Britton Head#: [id number] 92 : 1975Acct:[id number] Age/Sex: 50 / MADM Date: 04/25/25 Loc: HO.HHCX Attending Dr: Panchito Cid NP Ordering Physician: Panchito Cid NP Date of Service: 04/25/25 Procedure(s): XR ankle RT min 3V Accession Number(s): [id number] cc: Panchito Cid NP Reason for Exam: Ankle injury with pain around achillies tendon EXAMINATION: XR ANKLE, RIGHT CLINICAL INFORMATION: Ankle injury with pain around achillies tendon COMPARISON: 12/05/2024. TECHNIQUE: AP, lateral, and mortise views of the right ankle. FINDINGS: No fracture, dislocation, or suspicious bone lesion. There is normal alignment. The ankle mortise is intact. The talar dome is normal. Os trigonum noted. There are mild to moderate degenerative changes in the ankle joint. There is a mild pes planus. There is a moderate-sized plantar calcaneal spur. No soft tissue abnormalities. XR/XR ankle RT min 3V IMPRESSION: 1. No acute bony or soft tissue abnormalities of the right ankle. 2. Mild to moderate degenerative changes of the ankle joint. 3. Moderate size calcaneal spur. Electronically signed by: Kingsley Bishop MD 04/25/2025 04:31 PM EDT Dictated By: Kingsley Bishop MD Signed By: <Electronically signed by Kingsley Bishop MD in OV> 04/25/25 1631 DD/ 1620 TD/TT: 04/25/25 162 Windows Security Analyst: Panchito Cid BOOK COVERER IMG XR PROCEDURES Final Resul t documented in this encounter Visit Diagnoses Diagnosis Acute right ankle pain- Primary documented in this encounter Additional Health Concerns Assessment Noted Time PHQ-9 Depression Total Score: 0 02/27/20 23 2:10 PM EDT documented as of this encounter Care Teams General Assignment Reporter Relationship Specialty Start Date End Date Chyna Whelan DO [address] [place] [phone] PCP - General Family Medicine 12/20/20 documented as of this encounter
--- OUTSIDE RECORDS SUMMARY | 2025-04-25 16:36 | XMS_ITS | Encounter Summary ---
Author Organization [employer] Address [address] [facility] 7t [place] [address] Care Team Providers Care Timing Adjuster Name Role Phone Chyna Whelan DO Primary Care Provider + [phone] Reason for Visit * Reason Onset Date Comments Nurse Triage 04/25/2025 Encounter Details Date Type Department Care Team ([facility] st Contact Info) Description 04/25/2025 Telephone [facility]INE [address] [place] [address] Chyna Whelan DO [address] [place], [place] [phone] Nurse Triage Social History Tobacco Use Types Packs/Day Years [...] t he electric, gas, oil or water Watt[employer] threatened to shut off services in your [...] encounter Miscellaneous Notes * Telephone Encounter - Jennifer Dennis LPN - 04/25/2025 9:21 AM EDT Triage call to patient who report he was walking his dog two days ago and as he pushed off walking he felt pain in right ankle. Patient now with pain more specific to right heel and achilles pain. Nodiscoloration but area is swollen. Has a ankle support on foot. Has been taking Ibuprofen with no noted improvement. No recent ABT use and patient reports history of Gout but does not feel like that. Disposition reviewed and patient in agreement with plan. ASK/Uvaldo WEIGHT REDUCTION SPECIALIST today at 3:15pm Protocol Used: Ankle Injury (Adult) Protocol-Based Disposition: See in Office or Video Visit Today or Tomorrow Video visit not offered Positive Triage Question: * Moderate pain (e.g., interferes with normal activities, limping) and high-risk adult (e.g., age > 60 years, osteoporosis, chronic steroid use) * All higher-acuity triage questions were negative Care Advice Discussed: * Reasons To Call Back - Pain not improved after 3 days - Pain or swelling lasts over 2 weeks - Swelling or bruise becomes over 2 inches (5 cm) - You become worse * Telephone Encounter - Nathanael Martin - 04/25/2025 9:09 AM EDT Symptom: Foot or Ankle Injury. Pt states he stepped wrong. Outcome: Talk to a nurse or provider within 15 minutes Reason: Severe pain now The caller accepted this outcome. Contact pt at [phone] documented in this encounter Plan of Treatment Not on file documented as of this encounter Visit Diagnoses Not on filedocumented in this encounter Additional Health Concerns Assessment Noted Time PHQ-9 Depression Total Score: 0 02/27/20 23 2:10 PM EDT documented as of this encounter Care Teams Timing Adjuster Relationship Specialty Start Date End Date Chyna Whelan DO [address] [place] [address] PCP - General Family Medicine 12/20/20 documented as of this encounter
--- OUTSIDE RECORDS SUMMARY | 2025-04-25 16:36 | XMS_ITS | Encounter Summary ---
Author Organization [employer] Address [address] [facility] 7t [place] [address] Care Team Providers Care English Language Arts Teacher Name Role Phone Chyna Whelan DO Primary Care Provider + [phone] Encounter Details Date Type Department Care Team (Latest Contact Info) Description 04/25/2025 Travel Social History Tobacco Use Types Packs/Day Years Used Date Smoking Tobacco: Never Passive Smoke Exposure: Never Smokeless Tobacco: Never Alcohol Use Standard Drinks/Week Comments Never 0 (1 standard drink = 0.6 oz pur e alcohol) Depression Answer Date Recorded Patient Health Questionnaire-9 Score 0 02/26/2023 Housing Stability Answer Date Recorded What is your housing situation today? I have nickopriyank hutchins 05/25/[address] you [...] documented as of this encounter Care Teams English Language Arts Teacher Relationship Specialty Start Date End Date Chyna Whelan DO [address] [place] [phone] PCP - General Family Medicine 12/20/20 documented as of this encounter
--- OUTSIDE RECORDS SUMMARY | 2025-04-25 16:36 | XMS_ITS | Encounter Summary ---
Author Organization [employer] Address [address] [facility] 7t [place] [address] Care Team Providers Care Etl Analyst Developer Name Role Phone Chyna Whelan DO Primary Care Provider [phone] Reason for Visit * Reason Onset Date Comments Appointment Request 02/09/2023 Encounter Details Date Type Department Care Team ([facility] st Contact Info) Description 02/09/2023 Telephone [facility] MEDICINE [address] [place] [address] Chyna Whelan DO [address] [place] [address] Appointment Request Social History Tobacco Use Types [...] book PE pt need it for work. 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 PCP DR. Whelan documented in this encounter Plan of Treatment Not on file documented as of this encounter Visit Diagnoses Not on filedocumented in this encounter Care Teams Etl Analyst Developer Relationship Specialty Start Date End Date Chyna Whelan DO [address] [place] [address] PCP - General Family Medicine 12/20/20 documented as of this encounter
--- OUTSIDE RECORDS SUMMARY | 2025-04-25 16:36 | XMS_ITS | Clinical Summary ---
Author Organization [employer] Address 75 [facility] 7t [place] [address] Care Team Providers Care Vegetable Vendor Name Role Phone Chyna Whelan DO Primary Care Provider [phone] Allergies No known active allergies Medications traMADol (Ultram) 50 MG tablet Take 1 tablet by mouth every 12 (twelve) hours. 03/02/20 22 Active cyclobenzaprin e (Flexeril) 10 MG tablet take 1 tablet by oral route at bedtime as needed 03/02/20 22 Active pseudoephedrin e (Sudafed) 30 MG tablet Take 1 tablet (30 mg) by mouth every 4 (four) hours if needed for congestion. 30 tablet 02/23/20 23 Active naproxen (Naprosyn) 500 MG tablet Take 1 tablet (500 mg) by mouth 2 times daily for 20 days. 40 tablet 04/25/20 25 025 Active meloxicam (Mobic) 15 MG tablet Take 1 tablet by mouth 1 (one) time each day. 03/02/20 22 025 Discontinued(Du plicate order (will not trigger notification to Pharmacy)) naproxen (Naprosyn) 500 MG tablet Take 1 tablet (500 mg) by mouth 2 times daily for 20 days. 40 tablet 04/25/20 25 025 Discontinued Active Problems Problem Noted Date Diagnosed Date [...] Eye exam: referral placed Dental home: Advised [facility] dental Skin tag 02/26/2023 Assessment & Plan [...] Encounters Date Type Department Care Team Description 04/25/2025 3:15 PM EDT Office Visit [facility] MEDICINE [address] [place] [phone] Panchito Cid FNP Acute right ankle pain (Primary Dx) 04/25/2025 Travel 04/25/2025 Telephone [facility] MEDICINE [address] [place] [address] Chyna Whelan DO Nurse Triage 02/23/2025 Results Follow-Up [facility] MEDICINE [address] [place] [address] Yaquelin Gonzalez MD CBC auto differential, Comprehensive Metabolic Panel, Hemoglobin A1c, Additional followed-up results: 5 02/23/2025 Orders Only [facility] MEDICINE [address] [place] [place] [address] Yaquelin Gonzalez MD 01/30/2025 Population Health Risk Score [facility] () Department [address] [place] [phone] Provider, Population Health Generic from Last 3 Months Immunizations Immunization Administration [...] Mass Index 36.72 04/25/2025 3:07 PM EDT Plan of Treatment Health Maintenance [...] 2) 02/02/2024 Depression Screening 02/27/2024 02/26/2023, 02/26/2023 SDOH Screening 10/12/2024 10/13/2023 DTaP/Tdap/Td Vaccines (2 - T d or Tdap) 12/19/2024 12/19/2014 COVID-19 Vaccine (3 - 2024-2 6 season) 2025 09/26/2020, 09/05/2020 Influenza Vaccine (#1) 2025 Diabetes: Hemoglobin A1C 02/21/2026 02/21/2025 Tobacco Screening 04/25/2026 04/25/2025 Lipid Panel 02/21/2030 02/21/2025 RSV Patients and [...] 4:20 PM EDT Acute right ankle pain TSH W/REFLEX TO FT4 Routine 02/21/2025 9 [...] maintenance from Last 3 Months Results * XR Ankle 3+ Views Right (04/25/2025 4:20 PM EDT) Anatomical Region Laterality Modality Lower Extremities, Ankle Right Radiogr aphic Imaging 04/25/2025 4:20 PM EDT Narrative 04/25/2025 4:34 PM EDT [address] [address] XRay Report Signed Patient: Alok Head MR#: [id number] : 1975 Acct:[id number] Age/Sex: 50 / M ADM Date: 04/25/25 Loc: .[facility] Attending Dr: Panchito Cid NP Ordering Physician: Panchito Cid NP Date of Service: 04/25/25 Procedure(s): XR ankle RT min 3V Accession Number(s): [id number] cc: Panchito Cid NP Reason for Exam: [...] 04/25/25 1631 DD/ 1620 TD/TT: 04/25/25 1622 Woodworking Machine Operator: Procedure Note Donotuseinterpreter, Image - 04/25/2025 [facility] [address] [place] [address] XRay Report Signed Patient: Britton Head#: [id number] 92 : 1975Acct:[id number] Age/Sex: 50 / MADM Date: 04/25/25 Loc: [facility] Attending Dr: Panchito Cid CAN CONVEYOR FEEDER Ordering Physician: Panchito Cid NP Date of Service: 04/25/25 Procedure(s): XR ankle RT min 3V Accession Number(s): [id number] cc: Panchito Cid NP Reason for Exam: [...] 04/25/25 1631 DD/ 1620 TD/TT: 04/25/25 1622 Woodworking Machine Operator: Panchito Cid FOUNDATION RELATIONS MANAGER IMG XR PROCEDURES Final Resul t * Vitamin D, 25-Hydroxy, Total, Immunoassay (02/21/2025 9:48 AM EDT) Vitamin D 25-OH Total 36.8 >30 ng/mL [facility] Comment: Health Based Reference Values*< 20 ng/mL Eexdyniyh44-07 ng/mL Insufficient> 30 ng/mL Sufficient*Jessica REDDY. N [...] BLOOD ORDERABLES Final Result Performing Organization Address [facility]/ZIP Co de Phone Number [facility] [address] [place] [phone] * TSH with Reflex to Free T4 (02/21/2025 9:48 AM EDT) TSH reflex Free T4 1.51 0.32 - 4.0 uIU/mL [facility] Blood Venous blood specimen / Unknown 02/21/2025 9:48 AM EDT 02/21/2025 11:23 AM EDT us Yaquelin Glass MD LAB BLOOD ORDERABLES Final Result Performing Organization Address City/[facility]/ZIP Co de Phone Number [facility] [address] [place] [phone] * (ABNORMAL) CBC auto differential (02/21/2025 9:48 AM EDT) White Blood Count 7.4 4.8 - 10.8 X10*3/uL [facility] Red Blood Count 5.38 4.60 - 5.80 X10*6/uL [facility] Hemoglobin 17.3 14.0 - 18.0 g/dl [facility] Hematocrit 50.4 42.0 - 52.0 % [facility] Mean Corpuscular Volume 93.7 80.0 - 98.0 fL [facility] Mean Corpuscular Hemoglobin 32.2 27.0 - 33.0 pg [facility] Mean Corpuscular HGB Conc 34.3 31.0 - 36.0 g/dl [facility] Red Cell Distribution Width 13.8 11.0 - 16.0 % [facility] Platelet Count 220 160 - 400 X10*3/uL [facility] Mean Platelet Volume 11.1 9.4 - 12.4 fL [facility] Neutrophils Percent Auto 60.0 45 - 73 % [facility] Imm Gran Pct Auto 0.5(H) 0.0 - 0.4 % [facility] Lymphocytes Percent Auto 29.4 20 - 40 % [facility] Monocytes Percent Auto 7.2 2 - 11 % [facility] Eosinophils Percent Auto 2.2 0 - 4 % [facility] Basophils Percent Auto 0.7 0 - 2 % [facility] NRBC Pct Auto 0.0 0.0 - 0.2 /100WBC [facility] Neutrophils Absolute Auto 4.4 2.0 - 8.3 x10*3/uL [facility] Imm Gran Abs Auto 0.04(H) 0.00 - 0.03 X10*3/uL [facility] Lymphocytes Absolute Auto 2.2 1.2 - 4.9 X10*3/uL [facility] Monocytes Absolute Auto 0.5 0.1 - 1.2 X10*3/uL [facility] Eosinophils Absolute Auto 0.2 0.0 - 0.4 X10*3/uL [facility] Basophils Absolute Auto 0.1 0.0 - 0.2 X10*3/uL [facility] NRBC Abs Auto 0.000 0.0 - 0.012 X10*3/uL [facility] Blood Venous blood specimen / Unknown 02/21/2025 9:48 AM EDT 02/21/2025 11:23 AM EDT us Yaquelin Glass MD LAB BLOOD ORDERABLES Final Result Performing Organization Address [facility]/ZIP Co de Phone Number [facility] [address] [place] [phone] * Hepatitis C Antibody with Reflex to HCV, RNA, Quantitative, Real-Time PCR (02/21/2025 9:48 AM EDT) Hepatitis C Antibody Nonreactive Nonreactive [facility] Comment:Antibodies to HCV no t detected; does not exclude early acuteHCV infection. Blood Venous blood specimen / Unknown 02/21/2025 9:48 AM EDT 02/21/2025 11:23 AM EDT us Yaquelin Glass MD LAB BLOOD ORDERABLES Final Result Performing Organization Address [facility]/ZIP Co de Phone Number [facility] [address] [place] [phone] * HIV-1/2 Antigen and Antibodies, Fourth Generation, with Reflexes (02/21/2025 9:48 AM EDT) HIV AB/AG Nonreactive Nonreactive [facility] Comment:HIV-1 p24 Ag and/or HIV-1/HIV-2 Ab not detected.A test result that is nonreactive does not exclude thepossibility of exposure to or infection with HIV-1 and/orHIV-2. Nonreactive results in this assay for individualswith prior exposure to HIV-1 and/or HIV-2 may be due toantigen and antibody levels that are below the limit ofdetection of this assay.The [employer]Tipp24 HIV Ag/Ab Combo assay result andsupplemental assay results should be interpreted inconjunction with the patient's clinical presentation,history and other laboratory results. If the results areinconsistent with clinical evidence, additional testing issuggested to confirm the result. Blood Venous blood specimen / Unknown 02/21/2025 9:48 AM EDT 02/21/2025 11:23 AM EDT us Yaquelin Glass MD LAB BLOOD ORDERABLES Final Result Performing Organization Address [facility]/[employer] Co de Phone Number [facility] [address] [place] [phone] * Hemoglobin A1c (02/21/2025 9:48 AM EDT) Hemoglobin A1c 5.7 <6.0 % [facility] Comment:Hemoglobin A1C Refer ence Range Adults: 4.8 - 6.0 % Non diabetic: < 6.0 % Goal: < 7.0 %Additional Action Suggested: > 8.0 %Note: Hemoglobin A1c results are invalid for patients with abnormal amounts of HbF. Blood transfusions may impact the HbA1c concentration in the patient sample. Estimated Average Glucose 117 mg/dL [facility] Comment:eAG = Estimated ave rage glucose which is %A1C expressed asaverage glucose, using the formula of the J8G-[id number] Glucose study (ADAG), Diabetes Care, Vol.31,#8,Feb. 2007 Blood Venous blood specimen / Unknown 02/21/2025 9:48 AM EDT 02/21/2025 11:23 AM EDT us Yaquelin Glass MD LAB BLOOD ORDERABLES Final Result Performing Organization Address [facility] Co de Phone Number [facility] [address] [place] [phone] * (ABNORMAL) Lipid Panel, Standard (02/21/2025 9:48 AM EDT) Triglycerides 150(H) <150 mg/dL [facility] Comment:Desirable Triglyceri de: less than 150 mg/dLBorderline High Triglyceride 150-199 mg/dLHigh Triglyceride: 200-499 mg/dLVery High Triglyceride: greater than or equal to 5OO mg/dL Cholesterol 193 <200 mg/dL [facility] Comment:Desirable Cholestero l: less than 200 mg/dLBorderline High Cholesterol: 200-239 mg/dLHigh Cholesterol: greater than 239 mg/dL LDL Cholesterol Calculated 106(H) <100 mg/dL [facility] Comment:Desirable LDL: less than 100 mg/dLNear Optimal/Above Optimal LDL: 110- 129 mg/dLBorderline High LDL: 130-159 mg/dLHigh LDL: 160-189 mg/dLVery High LDL: greater than or equal to 190 mg/dL HDL Cholesterol 57 >40 mg/dL [facility] Comment:Desirable HDL: great er than 40 mg/dL Note: This HDL assay may give artificially low results in patients with liver disease. Blood Venous blood specimen / Unknown 02/21/2025 9:48 AM EDT 02/21/2025 11:23 AM EDT Yaquelin Glass MD LAB BLOOD ORDERABLES Final Result [facility] [address] [place], [place] [phone] * (ABNORMAL) Comprehensive Metabolic Panel (02/21/2025 9:48 AM EDT) Sodium 140 135 - 145 mmol/L [facility] Potassium 3.7 3.3 - 5.1 mmol/L [facility] Chloride 107 96 - 108 mmol/L [facility] Carbon Dioxide 25 22 - 29 mmol/L [facility] Anion Gap 12 12 - 20 [facility] Urea Nitrogen (BUN) 13 9 - 16 mg/dL [facility] Creatinine, Serum 0.87 0.5 - 1.4 mg/dL [facility] Estimated Glomerular Filt Rate >60 [facility] Comment:Chronic Kidney Disea se: Estimated GFR < 60 mL/min/1.63t6Cagidz Kidney Disease: Estimated GFR < 15 mL/min/1.73m2 Glucose 134(H) 60 - 115 mg/dL [facility] Calcium 9.1 8.4 - 10.2 mg/dL [facility] Bilirubin, Total 1.3(H) 0.0 - 1.0 mg/dL [facility] Aspartate Amino Transferase 41(H) 5 - 37 U/L [facility] Alanine Aminotransferase 65(H) 0 - 40 U/L [facility] Total Protein 7.0 6.5 - 8.0 g/dL [facility] Albumin Level 4.2 3.5 - 5.0 g/dL [facility] Alkaline Phosphatase 66 39 - 117 U/L [facility] Blood Venous blood specimen / Unknown 02/21/2025 9:48 AM EDT 02/21/2025 11:23 AM EDT us Yaquelin Glass MD LAB BLOOD ORDERABLES Final Result [facility] [address] [place] [phone] from Last 3 Months Insurance [facility] C3 HSN FULL Care Teams Vegetable Vendor Relationship Specialty Start Date End Date Chyna Whelan DO [address] [place] [phone] PCP - General Family Medicine 12/20/20
--- OUTSIDE RECORDS SUMMARY | 2025-04-25 16:36 | XMS_ITS | Encounter Summary ---
Author Organization [employer] Address [address] [facility] 7t [place] [address] Care Team Providers Care Church History Professor Name Role Phone Chyna Whelan DO Primary Care Provider + [phone] Encounter Details Date Type Department Care Team (Late st Contact Info) Description 02/23/2025 Orders Only [facility] MEDICINE [address] [place], [place] [phone] Yaquelin Gonzalez MD [address] [place], [place] [phone] Social History Tobacco Use Types Packs/Day Years [...] documented as of this encounter Care Teams Church History Professor Relationship Specialty Start Date End Date Chyna Whelan DO [address] [place] [phone] PCP - General Family Medicine 12/20/20 documented as of this encounter
--- OUTSIDE RECORDS SUMMARY | 2025-04-25 16:36 | XMS_ITS | Clinical Summary ---
Author Organization [facility] Address [address] [employer] [place] [address] [place] [phone] Phone Care Team Providers Care Briar Wood Sorter Name Role Phone Pcp, Unknown Primary Care [...] ecorded Are you denied basic needs s [facility] as food, clothing, or medical care? No [...] 02/02/2024 ZOSTER VACCINES (1 of 2) 02/02/2024 Adult Td,Tdap Booster 12/19/2024 12/19/2014 INFLUENZA VACCINE (#1) 2025 COVID-19 VACCINE (2023-2 5 season) 2025 HEPATITIS A VACCINES Aged Out No [...] Medical Devices Not on file Care Teams Briar Wood Sorter Relationship Specialty Start Date End Date Pcp, Unknown PCP - General 10/16/22 Additional Source Comments The information contained in this document represents components of the legal health record. It is not the complete legal health record.[facility]
== END 2025-04-25 16:08 | disposition home or self-care (01) ==
LOC: HO.HHCX 16:07
DX: M25.571 Pain in right ankle and joints of right foot (principal)
CPT/HCPCS: 73610

== ENCOUNTER → 2025-04-25 16:08 | Outpatient (BNV) | payer MEDICAID, SELFPAY | PROVIDERS: Visit Provider Radiology Diagnostic Radiology | DX: M25.571 Pain in right ankle and joints of right foot (principal); S86.001A Unspecified injury of right Achilles tendon, initial encounter; M19.071 Primary osteoarthritis, right ankle and foot; M77.31 Calcaneal spur, right foot | CPT/HCPCS: 73610 ==

== ENCOUNTER 2025-05-16 12:56 | Outpatient (AMB) | payer MEDICAID, SELFPAY ==
--- NOTE | 2025-05-16 12:59 | MHC.OFFVIS ---
Vital Signs 05/16/25 13:00 Height 5 ft 11 in Weight 263 lb BMI 36.7 BP 116/73 Blood Pressure Location Lt brachial Position Sitting Pulse 83 Pulse Oximetry (%) 97 Oxygen Delivery Method Room Air Intake Visit Reasons: pre colonoscopy Intake Note: Patient new consult for 2nd pre Colonoscopy screening. 1st Colonoscopy was at [facility] [place] 20 yrs ago. Patient denies any GI issues. 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 Referred by PCP for pre colonoscopy screening Reports regular daily bowel movements which may vary depending on dietary intake, with rare episodes of diarrhea or constipation, the latter only occurring once when taking medication for gout. History notable for gout, previously treated with naproxen as needed, which the patient chooses to avoid, preferring to limit alcohol intake instead. No relevant non-GI comorbidities noted. Patient denies: fever/chills, n/v, appetite changes, pyrosis, regurgitation,dysphasia, unintentional wt loss, ab pain or melena/hematochezia. Social hx: -Occasional ETOH use; beer socially, increases on weekends, has reduced intake from previous levels -denies recreational drug use -No regular tobacco use; occasional cigarette when drinking, does not consider self a smoker - family hx as below -denies personal hx of CA -denies significant cardiopulmonary history -tolerated anesthesia in the past without difficulty. 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, 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, 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 Review of Systems Const Reports as per HPI ENT Reports as per HPI Card Reports as per HPI Resp Reports as per HPI GI Reports as per HPI Reports as per HPI Physical Exam Vital Signs: Last Vital Signs Pulse 83 05/16/25 13:00 BP 116/73 05/16/25 13:00 Pulse Ox 97 05/16/25 13:00 Oxygen Delivery Method Room Air 05/16/25 13:00 BMI result Body Mass Index 36.7 Const General: healthy appearing, no acute distress and well developed Nutritional Appearance: average body habitus Orientation/consciousness: patient oriented x3 HEENT Head: Yes normal to inspection, Yes normocephalic and Yes atraumatic Face and sinus: Yes normal facial exam Eyes General: appearance normal, both eyes and all related structures Neck Neck: Yes normal visual inspection Resp Effort & Inspection: normal respiratory effort, able to speak in complete sentences, no tracheal deviation and symmetric chest movement Cardio Jugular venous distension: no JVD Neuro General: patient oriented x3 Gait exam (Neuro): Normal gait present Psych Appearance: grossly normal Mental Status: mental status grossly normal Speech and movement: Normal speech and movement present Affect: normal affect Attitude: cooperative Thought process: Normal thought process present Thought content: Normal thought content present Insight: Good insight present (Psych) Judgement: Good judgement present (Psych) Assessment & Plan Assessment & Plan (1) Colon cancer screening: Code(s): Z12.11 - Encounter for screening for malignant neoplasm of colon Category: Medical Plan: Patient age >50, due for routine colonoscopy screening per guidelines; no concerning symptoms or family hx for higher-risk protocol. Additional Testing: None prior to colonoscopy; proceed with standard pre-procedure labs only if required by anesthesia. Medication Management: D/C naproxen at least 7 days prior to procedure (per protocol); acetaminophen permitted if analgesia needed. Lifestyle Recommendations: - Reduce/avoid alcohol in context of gout and per procedure recommendations. - Maintain usual diet until prep; follow clear liquid diet day before colonoscopy, avoiding red, blue, or purple liquids. - No solid food day prior to procedure, NPO (including water) 4 hrs pre-procedure. Follow-Up: In-office visit scheduled post-procedure to review pathology/results. Results to be posted on portal; patient advised of protocol if rescheduling or canceling follow-up is desired. Plan Follow-up after colonoscopy or sooner as needed Time: I spent a total of 18 minutes on the date of encounter which includes: Preparing to see the patient (reviewed previous documentation, test results and medical history) Performing a medically appropriate exam and/or evaluation Ordering medications, tests, and procedures Documenting clinical information in the health record Orders: Referrals GI Procedure Notification Z12.11 - Encounter for screening for malignant neoplasm of colon Medications: New polyethylene glycol 3350 (Miralax) per colonoscopy prep instructions 238 grams PO ONCE 238 grams 0RF bisacodyl Take per colonoscopy instructions 20 mg (4 x 5 mg) PO ONCE 4 tabs 0RF Coding Level of Care Code New Pt New Pt Level 2 (20598) Patient Type New Diagnoses Colon cancer screening Z12.11
[2025-05-16 13:00] VITALS: BP 116/73; PULSE 83; O2SAT 97; BMI 36.7
== END 2025-05-16 13:42 | disposition home or self-care (01) ==
LOC: HO.HGI 12:57
PROVIDERS: PCP Internal Medicine; Visit Provider Nurse Practitioner Family
DX: Z01.818 Encounter for other preprocedural examination (principal); Z12.11 Encounter for screening for malignant neoplasm of colon
CPT/HCPCS: 99202

== ENCOUNTER → 2025-05-16 12:56 | Outpatient (BNVA) | payer MEDICAID, SELFPAY | PROVIDERS: PCP Internal Medicine; Visit Provider Nurse Practitioner Family | DX: Z12.11 Encounter for screening for malignant neoplasm of colon (principal) | CPT/HCPCS: 99212 ==